=== PATIENT | female | born 1995 | race Caucasian/White ===

== ENCOUNTER 2024-02-12 10:50 | Outpatient (CLI) | payer BC, SELFPAY ==
[2024-02-12 11:23] LABS: Basophils # 0.1 K/mm3 (0-0.2); Basophils % 0.6 % (0.1-2.0); Eosinophils # 0.1 K/mm3 (0.0-0.4); Eosinophils % 1.5 % (0.1-12.0); Hematocrit 42.1 % (37.0-47.0); Hemoglobin 13.2 g/dL (12.2-16.2); Lymphocytes # 1.8 K/mm3 (0.7-4.5); Lymphocytes % 22.9 % (10-50); Mean Corpuscular HGB Conc 31.4 g/dL (31.8-35.4); Mean Corpuscular Hemoglobin 29.1 pg (27.0-31.2); Mean Corpuscular Volume 92.5 fl (81-99); Mean Platelet Volume 7.6 fl (7.4-10.4); Monocytes # 0.4 K/mm3 (0.1-1.0); Monocytes % 4.8 % (1.7-9.3); Neutrophils # 5.6 K/mm3 (1.8-7.8); Neutrophils % 70.2 % (37.0-80.0); Platelet Count 308 K/mm3 (142-424); Red Blood Count 4.55 M/mm3 (4.20-5.40); Red Cell Distribution Width 14.2 % (11.5-17.5); White Blood Count 7.9 K/mm3 (4.8-10.8)
[2024-02-13 10:11] LABS: HIV Screen 4th Generation wRfx Non Reactive (Non Reactive); Rubella Antibodies, IgG 5.37 index (Immune >0.99)
[2024-02-13 11:11] LABS: Rapid Plasma Reagin Ab Titer Non Reactive titer (NonRea<1:1)
[2024-02-15 10:19] LABS: Hepatitis B Surface Antigen Negative; Hepatitis C Antibody Non Reactive
== END 2024-02-12 23:59 ==
LOC: LAB 10:51
PROVIDERS: PCP Internal Medicine; Visit Provider Obstetrics & Gynecology
DX: Z32.01 Encounter for pregnancy test, result positive (principal); O26.891 Other specified pregnancy related conditions, first trimester; O21.9 Vomiting of pregnancy, unspecified; Z3A.08 8 weeks gestation of pregnancy
CPT/HCPCS: 36415; 85025; 86593; 86703; 86762; 86850; 87086; 87340; 87380; G0432

== ENCOUNTER 2024-05-04 09:12 | Outpatient (CLI) | payer BC, SELFPAY ==
--- NOTE | 2024-05-04 09:13 | US_ITS ---
PROCEDURE: US OB /MATERNAL DETAIL CLINICAL INDICATION: 20 wk+ Anatomy Scan-US OB Complete COMPARISON: No exams were available for comparison FINDINGS: Transabdominal sonographic images of the pelvis were obtained. From her established due date she is 20 weeks 0 days. Single viable intrauterine gestation. Cephalic position. Placenta: Posteriorplacenta grade 1. There is an average amount of fluid. The cervix appears satisfactory. Closed and measuring 3.65 cm in length. Complete survey performed and was unremarkable on the submitted images as in PACS. No discrete anomalies identified on survey imaging by technologist. Active fetus. Three-vessel cord with satisfactory umbilical cord insertion. 4- chamber heart noted. Situs, aortic arch, LVOT, RVOT, three-vessel view appear normal. Survey of brain & ventricles Unremarkable. Cerebellum, thalamus, choroid plexus, cisterna magna appear normal. Face and neck survey unremarkable. Profile, nasion, lips and nose appeared normal. Diaphragm and chest views unremarkable. Abdomen: Both kidneys noted and unremarkable. Stomach and bladder noted and satisfactory. Spine: Survey of the spine satisfactory with no anomalies identified nor imaged. Cervical, thoracic, lower spine appear normal. Both arms and legs noted. Amniotic Fluid: Adequate. Measurements: Average ultrasound age 20weeks 3days. Estimated due date by ultrasound age 1009/18/2024. Estimated weight 334g BPD = 20weeks 5days HC = 20weeks 5days AC = 20weeks 0 days FL = 20weeks 1day Growth Percentile= 53 Heart Rate = 152bpm Cerebellum = 19weeks 5days Humerus = 20weeks 2days HC/AC is 1.24 FL/BPD is 0.67 FL/AC is 0.22 IMPRESSION: 1. Viable fetus in the cephalic presentation with a posterior placenta grade 1. 2. The fluid is within normal limits. 3. Anatomical scan appears normal. 4. biometry is consistent with the dates. Dictated by: Satya Hyde MD 05/04/2024 15:48 Satya Hyde MD in [facility] 05/04/2024 15:48
== END 2024-05-04 23:59 | disposition home or self-care (01) ==
LOC: RAD 09:13
PROVIDERS: PCP Internal Medicine; Visit Provider Obstetrics & Gynecology
DX: Z3A.20 20 weeks gestation of pregnancy (principal); Z36.3 Encounter for antenatal screening for malformations; F32.A Depression, unspecified; F41.9 Anxiety disorder, unspecified; J45.909 Unspecified asthma, uncomplicated; O09.892 Supervision of other high risk pregnancies, second trimester; O99.342 Other mental disorders complicating pregnancy, second trimester; O99.512 Diseases of the respiratory system complicating pregnancy, second trimester
CPT/HCPCS: 76811

== ENCOUNTER 2024-05-25 08:09 | Outpatient (CLI) | payer BC, SELFPAY ==
[2024-05-25] MEDS: MVI, ADULT NO.1 WITH VIT K 10 ML, THIAMINE HCL 100 MG, MAGNESIUM SULFATE 2 GM in LACTAT... 250 ML IV (08:33)
[2024-05-25 08:35] VITALS: BP 106/68; PULSE 72; RESP 18; O2SAT 100
[2024-05-25 09:35] VITALS: BP 110/70; PULSE 75
[2024-05-25 10:35] VITALS: BP 109/67; PULSE 71
[2024-05-25 11:35] VITALS: BP 112/73; PULSE 74
[2024-05-25 12:40] VITALS: BP 122/66; PULSE 70
== END 2024-05-25 12:53 | disposition home or self-care (01) ==
LOC: INF 08:10
PROVIDERS: PCP Internal Medicine; Visit Provider Obstetrics & Gynecology
DX: O21.9 Vomiting of pregnancy, unspecified (principal); Z3A.23 23 weeks gestation of pregnancy
CPT/HCPCS: 96365; 96366; J3411; J7120

== ENCOUNTER 2024-05-31 11:56 | Outpatient (CLI) | payer BC, SELFPAY ==
[2024-05-31] MEDS: MVI, ADULT NO.1 WITH VIT K 10 ML, THIAMINE HCL 100 MG, MAGNESIUM SULFATE 2 GM in LACTAT... 250 ML IV (12:16)
[2024-05-31 12:20] VITALS: BP 111/63; PULSE 91; RESP 18; TEMP 37.1; O2SAT 100
[2024-05-31 13:20] VITALS: BP 108/72; PULSE 95
[2024-05-31 14:20] VITALS: BP 115/68; PULSE 93
[2024-05-31 15:20] VITALS: BP 110/67; PULSE 96
[2024-05-31 16:21] VITALS: BP 121/74; PULSE 76
== END 2024-05-31 16:24 | disposition home or self-care (01) ==
LOC: INF 11:58
PROVIDERS: PCP Internal Medicine; Visit Provider Obstetrics & Gynecology
DX: O21.9 Vomiting of pregnancy, unspecified (principal); Z3A.23 23 weeks gestation of pregnancy
CPT/HCPCS: 96365; 96366; J3411; J7120

== ENCOUNTER 2024-06-06 13:20 | Outpatient (CLI) | payer BC, SELFPAY ==
[2024-06-06] MEDS: MVI, ADULT NO.1 WITH VIT K 10 ML, THIAMINE HCL 100 MG, MAGNESIUM SULFATE 2 GM in LACTAT... 250 ML IV (13:30)
[2024-06-06 13:33] VITALS: BP 135/63; PULSE 90; RESP 18; O2SAT 99
[2024-06-06 14:30] VITALS: BP 131/76; PULSE 86
[2024-06-06 15:30] VITALS: BP 124/68; PULSE 81
[2024-06-06 16:30] VITALS: BP 126/72; PULSE 76
[2024-06-06 17:02] VITALS: BP 124/72; PULSE 72
== END 2024-06-06 17:03 | disposition home or self-care (01) ==
LOC: INF 13:21
PROVIDERS: PCP Internal Medicine; Visit Provider Obstetrics & Gynecology
DX: O21.9 Vomiting of pregnancy, unspecified (principal); Z3A.24 24 weeks gestation of pregnancy
CPT/HCPCS: 96365; 96366; J3411; J7120

== ENCOUNTER 2024-06-21 09:05 | Emergency (ER) | payer BC, SELFPAY ==
[2024-06-21] VITALS (11 sets, daily range): BP systolic 106–147; BP diastolic 61–91; PULSE 70–93; RESP 18–19; TEMP 36.6–36.8; O2SAT 98–100; BMI 33.6
[2024-06-21 09:30] LABS: Basophils % 0.2 % (0.1-2.0); Eosinophils # 0.2 K/mm3 (0.0-0.4); Eosinophils % 1.6 % (0.1-12.0); Hematocrit 35.7 % (37.0-47.0); Hemoglobin 11.6 g/dL (12.2-16.2); Lymphocytes # 1.4 K/mm3 (0.7-4.5); Lymphocytes % 13.7 % (10-50); Mean Corpuscular HGB Conc 32.6 g/dL (31.8-35.4); Mean Corpuscular Hemoglobin 29.6 pg (27.0-31.2); Mean Corpuscular Volume 90.8 fl (81-99); Mean Platelet Volume 7.5 fl (7.4-10.4); Monocytes # 0.4 K/mm3 (0.1-1.0); Monocytes % 4.4 % (1.7-9.3); Neutrophils % 80.1 % (37.0-80.0); Platelet Count 340 K/mm3 (142-424); Red Blood Count 3.93 M/mm3 (4.20-5.40); Red Cell Distribution Width 14.5 % (11.5-17.5); White Blood Count 9.9 K/mm3 (4.8-10.8)
[2024-06-21 09:39] LABS: Alanine Aminotransferase 17 U/L (12-78); Albumin Level 3.5 g/dl (3.5-5.0); Albumin/Globulin Ratio 1.2 (1.1-1.8); Alkaline Phosphatase 98 U/L (38-126); Anion Gap 8.5 mEq/L (5-15); Aspartate Amino Transferase 25 U/L (14-36); Bilirubin,Total 0.3 mg/dl (0.2-1.3); Blood Urea Nitrogen 4 mg/dl (7-17); Calcium 8.8 mg/dl (8.4-10.2); Carbon Dioxide 23 mmol/L (22.0-30.0); Chloride 108 mmol/L (98-107); Creatinine Clearance Estimated 239 mL/min (50-200); Estimated Glomerular Filt Rate 149 ml/min (>60); GFR (African American) 180 ML/MIN (>60); Glucose 92 mg/dl (74-100); Lipase 64 U/L (23-300); Potassium 3.5 mmoL/L (3.5-5.1); Sodium 136 mmol/L (136-145); Total Protein,Serum 6.5 g/dl (6.3-8.2)
[2024-06-21] MEDS: ACETAMINOPHEN 1,000MG/100ML VIAL 1000 MG IV (09:55)
[2024-06-21] MEDS: ONDANSETRON 4MG/2ML VIAL 4 MG IV (09:56)
[2024-06-21] MEDS: LACTATED RINGERS 1000ML 1,000 ML 999 ML IV ×2 (09:56→11:58)
[2024-06-21] MEDS: SODIUM CHLORIDE 0.9% 10ML VIAL 8 ML IV (09:56)
[2024-06-21] MEDS: FAMOTIDINE 20MG/2ML VIAL 20 MG IV (09:56)
--- NOTE | 2024-06-21 10:01 | ED_ITS ---
Discharge Plan Disposition Patient Disposition: Home, Self-Care Condition: Good Prescriptions Prescriptions: New famotidine [Pepcid] 20 mg tablet 20 mg PO DAILY PRN (Reason: acid reflux) Qty: 30 0RF ondansetron 4 mg tablet,disintegrating 4 mg PO Q8H PRN (Reason: nausea and vomiting) 4 Days Qty: 12 0RF No Action albuterol sulfate [Ventolin HFA] 90 mcg/actuation HFA aerosol inhaler inhalation Patient Comments: Inhale 2 puffs Every 4 (Four) Hours As Needed for Shortness of Air or Wheezing. Use with AeroChamber ondansetron 4 mg tablet,disintegrating 4 mg PO Q6H Qty: 30 1RF Classic 28 mg iron- 800 mcg tablet PO DAILY Referrals Follow up/Referrals: Raul Najera [Primary Care Provider] - See instructions Activity Restrictions/Add. Instructions Additional Instructions/Restrictions: You were evaluated in the emergency department today. 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 Follow-up closely with your psychologist private practice as well as your primary care provider. Make sure that you stay hydrated. Return to the emergency department for new or worsening symptoms. Clinical Impressions Clinical Impression: Nausea and vomiting during , Headache, Gastritis Stand Alone Forms Stand Alone Forms: Work/School Release Instructions Patient Instructions: DI for -- Discomforts and Remedies, DI for Vomiting -- Adult Discharge ED Provider: Anna Kirk General Adult HPI General Chief complaint: Abdominal Pain Stated complaint: vomiting abd and head pain 27 weeks Time Seen by Provider: 06/21/24 09:20 Mode of Arrival: Ambulatory Source of Information: Patient Limitations: No Limitations Description of Symptoms (Recalled from ER Triage Doc. by RN): c/o n/v and abdomen pain. pt reports that she started with nausea yesterday and upper abdomen pain, vomiting started this morning with around 4-5 episodes. History of Present Illness HPI narrative: This patient is a 28-year-old female at estimated 27 weeks gestation presenting to the emergency department for evaluation with concern for nausea, vomiting, and left upper quadrant abdominal discomfort. She states that she has had vomiting very frequently with , but she usually is able to vomit and go about her day. Today, she has had intractable vomiting that so severe that she is not able to move because she feels so miserable. She has vomited at least 6 times. Emesis is nonbloody nonbilious. She denies any significant changes in bowel movements, noting constipation with but she is still having good bowel movements. She does have a headache at this time, but no new visual disturbance, new numbness or tingling, weakness, or other concerns. No recent traumatic injuries. No vaginal bleeding, discharge, or leakage of fluid. No urinary symptoms. She reports has been uncomplicated thus far. She does note that her significant other at home has had diarrhea. She also notes that she has had some indigestion after drinking a soda yesterday. Related Data Home Medications Medication Instructions Recorded Confirmed vits no.126-ferrous fum tab PO DAILY 02/12/24 06/07/24 28 mg iron-folic acid 800 mcg tablet (Classic ) albuterol sulfate 90 mcg/actuation inhalation 03/11/24 06/07/24 aerosol inhaler (Ventolin HFA) Previous Rx's Medication Instructions Recorded ondansetron 4 mg disintegrating 4 mg PO Q6H #30 tabs 05/06/24 tablet famotidine 20 mg tablet (Pepcid) 20 mg PO DAILY PRN acid reflux #30 06/21/24 tabs ondansetron 4 mg disintegrating 4 mg PO Q8H PRN nausea and 06/21/24 tablet vomiting 4 days #12 tabs Allergies Allergy/AdvReac Type Severity Reaction Status Date / Time No Known Allergies Allergy Verified 06/07/24 09:01 [facility] Disclaimer: The information contained in this section may have been updated after the patient was seen, as this information can be updated by other users. Medical History GBS bacteriuria History of migraine headaches Depression affecting Anxiety in , antepartum Maternal asthma Nausea/vomiting in History of maternal chlamydia infection, currently Surgical History [place] teeth extracted Family History Other Anemia Asthma Cancer Coronary artery disease Diabetes Heart attack Hyperlipidemia Hypertension Kidney disease Thyroid disorder Social History Smoking Status: Never smoker alcohol intake: never substance use type: former substance user and marijuana current occupational status: employed Travel in the last 8 weeks: None ROS Obtained: Yes All systems reviewed & no additional complaints except as documented Physical Exam General General appearance: alert and in no apparent distress Head Head exam: atraumatic and normocephalic Eye Eye exam: Present normal appearance, PERRL and EOMI ENT ENT exam: Present normal exam, normal oropharynx, mucous membranes moist and normal external ear exam Neck Neck exam: Present normal inspection, full ROM and trachea midline; Absent tenderness Chest Chest inspection: Present normal inspection and symmetric chest wall rise; Absent tenderness Respiratory Respiratory exam: Present normal lung sounds bilaterally; Absent respiratory distress, wheezes, stridor or accessory muscle use Cardiovascular Cardiovascular exam: Present regular rate and normal rhythm Abdominal Exam Abdominal exam: Present soft; Absent distention, tenderness or guarding Extremities Exam Extremities exam: Present normal inspection, full ROM and normal capillary refill; Absent tenderness or edema Back Exam Back exam: Present normal inspection and full ROM; Absent tenderness Neurological Exam Neurological exam: Present alert, oriented X3, CN II-XII intact and normal gait; Absent motor sensory deficit Psychiatric Psychiatric exam: Present normal affect and normal mood Skin Skin exam: Present warm and dry Medical Decision Making Medical Records Medical records reviewed: Yes I reviewed the patient's medical records. [place] Inquiry Pt receiving controlled substance: No Vital Signs: 06/21/24 09:08 06/21/24 09:14 06/21/24 09:30 Temperature 98.3 F Temperature Source Oral Pulse Rate 93 H Pulse Rate [Left Radial] 91 H Respiratory Rate 18 Blood Pressure 130/83 147/91 H Blood Pressure [Right Arm] 130/83 Blood Pressure Mean 91 105 Blood Pressure Mean [Right Arm] 98 Blood Pressure Source [Right Arm] Automatic Cuff Blood Pressure Position [Right Arm] Sitting 02 Sat by Pulse Oximetry 100 100 Oxygen Delivery Method Room Air 06/21/24 10:00 06/21/24 10:30 06/21/24 11:00 Temperature Temperature Source Pulse Rate 87 81 80 Pulse Rate [Left Radial] Respiratory Rate Blood Pressure 139/85 122/71 118/65 Blood Pressure [Right Arm] Blood Pressure Mean 100 82 Blood Pressure Mean [Right Arm] Blood Pressure Source [Right Arm] Blood Pressure Position [Right Arm] 02 Sat by Pulse Oximetry 99 99 98 Oxygen Delivery Method Room Air 06/21/24 11:30 06/21/24 12:00 06/21/24 12:30 Temperature Temperature Source Pulse Rate 75 80 72 Pulse Rate [Left Radial] Respiratory Rate Blood Pressure 120/68 123/69 114/63 Blood Pressure [Right Arm] Blood Pressure Mean Blood Pressure Mean [Right Arm] Blood Pressure Source [Right Arm] Blood Pressure Position [Right Arm] 02 Sat by Pulse Oximetry 99 100 100 Oxygen Delivery Method 06/21/24 13:00 06/21/24 13:25 Temperature 97.9 F Temperature Source Pulse Rate 70 89 Pulse Rate [Left Radial] Respiratory Rate 19 Blood Pressure 106/61 L 106/61 L Blood Pressure [Right Arm] Blood Pressure Mean Blood Pressure Mean [Right Arm] Blood Pressure Source [Right Arm] Blood Pressure Position [Right Arm] 02 Sat by Pulse Oximetry 99 Oxygen Delivery Method Lab Data Lab results reviewed: Yes I reviewed the patient's lab results. Lab Results 06/21/24 09:15: WBC 9.9, RBC 3.93 L, Hgb 11.6 L, Hct 35.7 L, MCV 90.8, MCH 29.6, MCHC 32.6, RDW 14.5, Plt Count 340, MPV 7.5, Neut % (Auto) 80.1 H, Lymph % (Auto) 13.7, Steele % (Auto) 4.4, Eos % (Auto) 1.6, Baso % (Auto) 0.2, Neut # (Auto) 8.0 H, Lymph # (Auto) 1.4, Steele # (Auto) 0.4, Eos # (Auto) 0.2, Baso # (Auto) 0.0, Sodium 136, Potassium 3.5, Chloride 108 H, Carbon Dioxide 23, Anion Gap 8.5, BUN 4 L, Creatinine 0.50 L, Estimated Creat Clear 239, Estimated GFR 149, Est GFR ( Amer) 180, Glucose 92, Calcium 8.8, Total Bilirubin 0.3, AST 25, ALT 17, Alkaline Phosphatase 98, Total Protein 6.5, Albumin 3.5, Globulin 3.0, Albumin/Globulin Ratio 1.2, Lipase 64 06/21/24 10:32: Urine Color Yellow, Urine Appearance Clear, Urine pH 7.5, Ur Specific [place] 1.015, Urine Protein Negative, Urine Glucose (UA) Negative, Urine Ketones 1+, Urine Blood Negative, Urine Nitrate Negative, Urine Bilirubin Negative, Urine Urobilinogen 0.2, Ur Leukocyte Esterase Negative, Urine RBC None, Urine WBC None, Ur Squamous Epith Cells Occasional, Urine Bacteria None 06/21/24 09:15 06/21/24 09:15 Orders (Tests/Meds): ED MEDICATIONS Discontinued Medications Generic Name Dose Route Start Last Admin Trade Name Bradly PRN Reason Stop Dose Admin Acetaminophen 1,000 mg 06/21/24 09:40 06/21/24 09:55 Acetaminophen 1,000mg/100ml Vial IV 06/21/24 09:41 1,000 mg ONCE ONE Administration Calcium Carbonate 500 mg 06/21/24 11:39 06/21/24 11:56 Calcium Carbonate 500mg Chewtab PO 06/21/24 11:40 500 mg ONCE ONE Administration Diphenhydramine HCl 12.5 mg 06/21/24 11:38 06/21/24 11:56 Diphenhydramine 50mg/Ml Vial IV 06/21/24 11:39 12.5 mg ONCE ONE Administration Famotidine 20 mg 06/21/24 09:41 06/21/24 09:56 Famotidine 20mg/2ml Vial IV 06/21/24 09:42 20 mg ONCE ONE Administration Lactated Ringer's 1,000 mls @ 999 mls/hr 06/21/24 09:40 06/21/24 09:56 Lactated Ringer's 1000 Ml Bag IV 06/21/24 10:40 999 mls/hr .Q1H1M ONE Administration Lactated Ringer's 1,000 mls @ 999 mls/hr 06/21/24 11:38 06/21/24 11:58 Lactated Ringer's 1000 Ml Bag IV 06/21/24 12:38 999 mls/hr .Q1H1M ONE Administration Metoclopramide HCl 5 mg 06/21/24 11:38 06/21/24 11:58 Metoclopramide Hcl 10mg/2ml Vial IVP 06/21/24 11:39 5 mg ONCE ONE Administration Ondansetron HCl 4 mg 06/21/24 09:40 06/21/24 09:56 Ondansetron 4mg/2ml Vial IV 06/21/24 09:41 4 mg ONCE ONE Administration Sodium Chloride 8 ml 06/21/24 09:41 06/21/24 09:56 Sodium Chloride 0.9% 10ml Vial IV 07/21/24 09:40 8 ml NEEDED PRN Administration dilute pepcid ORDERS Category Date Time Status POCUS Point of Care (ER Only) Stat Exams 06/21/24 09:20 Completed Complete Blood Count Auto Diff Stat Lab 06/21/24 09:15 Completed Comprehensive Metabolic Panel Stat Lab 06/21/24 09:15 Completed Lipase Stat Lab 06/21/24 09:15 Completed UA [Urinalysis and Microscopic] Stat Lab 06/21/24 10:32 Completed Medical Decision Narrative: In summary, this patient is a 28-year-old female presenting to the Emergency Department for evaluation of left upper quadrant abdominal pain, nausea, vomiting, and headache in . Differential diagnoses considered include but are not limited to hyperemesis gravidarum, gastroenteritis, pancreatitis, cholecystitis, dehydration, cystitis, pyelonephritis, gastritis. Ruling out the most morbid conditions drove assessment. I reviewed patient's past medical records and noted previous OB notes. On exam, the patient is lying in bed in no acute distress with reassuring vital signs on cardiac telemetry. Abdominal exam is benign with no focal abdominal tenderness. workup included CBC, CMP, lipase, urinalysis, bedside right upper quadrant ultrasound, and bedside OB ultrasound. She was given a bolus of IV fluids as well as IV Zofran, Tylenol, and Pepcid for symptomatic improvement. Labs obtained are reassuring with normal blood counts and normal CMP. Blood pressure reassuring on clinical exam. Ultrasounds are reassuring with no evidence of cholecystitis and baby looks good with normal movement, fluid, and heartbeat. On reassessment, the patient is resting calmly with normal vital signs on cardiac telemetry, but she states that she still feeling very bad and is not able to tolerate much oral intake. Given this, she was given IV Reglan, Benadryl, and oral Tums. At 1130, patient was placed in ED observation status pending reassessment, improved symptoms, and ability to tolerate p.o. intake to determine whether or not the patient would be appropriate for discharge versus admission. The patient was provided serial reevaluations and cardiac monitoring while awaiting ultimate disposition. Ultimately patient had significant improvement in her symptoms and was able to tolerate oral intake. Given this, she was deemed to be appropriate for discharge. I feel we have excluded acute life-threatening pathology. She was given prescriptions for Zofran and Pepcid as well as instructions for close follow-up with her primary care provider and [facility]. Strict return precautions were given. She was discharged in stable condition after all questions were answered. Discharge was done at 1325 after 1 hour and 55 minutes in ED observation. Procedures Limited Ultrasound Views:: Limited OB ultrasound Indication: Abdominal pain in Identified structures: Uterus Findings: Uterus: Viable IUP with good movement, good amount of fluid FHR: 136 Impression: -Viable IUP - heart rate: 136 -Free fluid: Absent Images were saved to permanent archive The study was technically adequate CPT Transabdominal: 61164-51 This study was performed by me, and I personally interpreted all images/videos. Based on my clinical judgement, these images were adequate and did not necessitate further imaging. Findings:: Limited RUQ ultrasound Indication: Abdominal pain, nausea, and vomiting Identified structures: -Gallbladder -Gallbladder wall -Liver Findings: Sonographic Layne sign: Absent Gallstones: Absent Sludge: Absent Pericholecystic fluid: Absent Maximal GB wall thickness (mm): Normal Gallbladder width (cm): Normal Gallbladder length (cm): Normal Impression: Normal gallbladder Images were saved to permanent archive The study was technically adequate CPT 90653-00 This study was performed by me, and I personally interpreted all images/videos. Based on my clinical judgement, these images were adequate and did not necessitate further imaging. Critical Care Critical Care Time Critical Care Time: No
[2024-06-21 10:38] LABS: Microscopic, Urine URINE MICROSCOPIC (MICROSCOPIC)
[2024-06-21 11:02] LABS: Appearance,Urine CLEAR (Clear); Bilirubin,Urine Negative (Negative); Blood, Urine Negative (Negative); Color,Urine YELLOW (Yellow); Glucose,Urine (UA) Negative (Negative); Ketones,Urine 1+ (Negative); Leukocyte Esterase,Urine Negative (Negative); Nitrate,Urine Negative (Negative); PH,Urine 7.5 (5.0-8.5); Protein,Urine Negative (Negative); Specific Gravity, Urine 1.015 (1.005-1.030); Urobilinogen,Urine 0.2 EU/dl (0.2)
[2024-06-21] MEDS: diphenhydrAMINE 50MG/ML VIAL 12.5 MG IV (11:56)
[2024-06-21] MEDS: CALCIUM CARBONATE 500MG CHEWTAB 500 MG PO (11:56)
[2024-06-21] MEDS: METOCLOPRAMIDE HCL 10MG/2ML VIAL 5 MG IVP (11:58)
[2024-06-21 13:21] LABS: Squamous Epithelial Cell,Urine Occasional #/hpf (0-5)
== END 2024-06-21 13:27 | disposition home or self-care (01) ==
PROVIDERS: Emergency Provider Emergency Medicine; PCP Internal Medicine
DX: O26.892 Other specified pregnancy related conditions, second trimester (principal); R10.12 Left upper quadrant pain; K29.70 Gastritis, unspecified, without bleeding; R51.9 Headache, unspecified; R11.2 Nausea with vomiting, unspecified; Z3A.27 27 weeks gestation of pregnancy
CPT/HCPCS: 80053; 81001; 83690; 85025; 96361; 96374; 96375; 99285; J0131; J1200; J2405; J2765; J7120; S0028

== ENCOUNTER 2024-06-28 08:29 | Outpatient (CLI) | payer BC, SELFPAY ==
[2024-06-28 09:00] LABS: Basophils % 0.3 % (0.1-2.0); Eosinophils # 0.2 K/mm3 (0.0-0.4); Eosinophils % 1.8 % (0.1-12.0); Hematocrit 28.1 % (37.0-47.0); Hemoglobin 10.4 g/dL (12.2-16.2); Lymphocytes # 1.6 K/mm3 (0.7-4.5); Lymphocytes % 16.8 % (10-50); Mean Corpuscular HGB Conc 36.9 g/dL (31.8-35.4); Mean Corpuscular Hemoglobin 33.8 pg (27.0-31.2); Mean Corpuscular Volume 91.7 fl (81-99); Mean Platelet Volume 7.6 fl (7.4-10.4); Monocytes # 0.6 K/mm3 (0.1-1.0); Monocytes % 5.9 % (1.7-9.3); Neutrophils % 75.3 % (37.0-80.0); Platelet Count 317 K/mm3 (142-424); Red Blood Count 3.06 M/mm3 (4.20-5.40); Red Cell Distribution Width 14.5 % (11.5-17.5); White Blood Count 9.3 K/mm3 (4.8-10.8)
[2024-06-28 09:11] LABS: Glucose,Fasting 85 mg/dl (74-100)
[2024-06-28 10:20] LABS: Glucose 1 Hour 87 mg/dL (74-100)
== END 2024-06-28 23:59 | disposition home or self-care (01) ==
LOC: LAB 08:30
PROVIDERS: PCP Internal Medicine; Visit Provider Obstetrics & Gynecology
DX: Z34.90 Encounter for supervision of normal pregnancy, unspecified, unspecified trimester (principal); Z3A.28 28 weeks gestation of pregnancy
CPT/HCPCS: 36415; 82951; 85025

== ENCOUNTER 2024-07-13 18:09 | Outpatient (CLI) | payer BC, SELFPAY ==
[2024-07-13 18:13] VITALS: BMI 33.7
[2024-07-13 18:35] VITALS: BP 118/71; PULSE 100; RESP 19; TEMP 36.9; O2SAT 97; BMI 33.7
[2024-07-13] MEDS: LACTATED RINGERS 1000ML 1,000 ML 999 ML IV (18:54)
[2024-07-13 18:55] LABS: Microscopic, Urine URINE MICROSCOPIC (MICROSCOPIC)
[2024-07-13 18:57] LABS: Appearance,Urine CLEAR (Clear); Blood, Urine 2+ (Negative); Color,Urine YELLOW (Yellow); Glucose,Urine (UA) Negative (Negative); Ketones,Urine 2+ (Negative); Leukocyte Esterase,Urine 1+ (Negative); Nitrate,Urine Negative (Negative); Protein,Urine 2+ (Negative); Specific Gravity, Urine >= 1.030 (1.005-1.030); Urobilinogen,Urine 0.2 EU/dl (0.2)
[2024-07-13 19:08] LABS: Fetal Membrane Rupture (Rapid) Negative (Negative)
[2024-07-13 19:10] LABS: Benzodiazepines Screen,Urine Negative ng/ml (<200)
[2024-07-13 19:11] LABS: Amphetamine/Metha Screen,Urine Negative ng/ml (<1000); Barbiturates Screen,Urine Negative ng/ml (<200)
[2024-07-13 19:12] LABS: Bilirubin,Urine Negative (Negative); Cocaine Screen,Urine Negative ng/ml (<300); Methadone Screen,Urine Negative ng/ml (<300)
[2024-07-13 19:13] LABS: Bacteria,Urine 4+ /lpf; Cannabinoid Screen,Urine Positive ng/ml (<50); RBC,Urine 50-100 #/hpf (0-3); Squamous Epithelial Cell,Urine 50-100 #/hpf (0-5); WBC,Urine TNTC #/hpf (0-3)
[2024-07-13 19:14] LABS: Opiate Screen,Urine Negative ng/ml (<300); Phencyclidine Screen,Urine Negative ng/ml (<25)
== END 2024-07-13 20:12 | disposition home or self-care (01) ==
LOC: OBOUT 18:10 → OB 18:10
PROVIDERS: PCP Internal Medicine; Visit Provider Obstetrics & Gynecology
DX: O42.913 Preterm premature rupture of membranes, unspecified as to length of time between rupture and onset of labor, third trimester (principal); Z3A.30 30 weeks gestation of pregnancy
CPT/HCPCS: 80307; 81001; 84112; 87086; 87088; 87186; G0463; J7120

== ENCOUNTER 2024-08-14 19:25 | Outpatient (CLI) | payer BC, SELFPAY ==
[2024-08-14 19:42] VITALS: BMI 74.9
[2024-08-14 19:56] VITALS: BP 129/73; PULSE 101; RESP 18; TEMP 37; O2SAT 98; BMI 74.9
[2024-08-14 20:08] LABS: Microscopic, Urine URINE MICROSCOPIC (MICROSCOPIC)
[2024-08-14 20:16] LABS: Appearance,Urine CLEAR (Clear); Bilirubin,Urine Negative (Negative); Blood, Urine Negative (Negative); Color,Urine YELLOW (Yellow); Glucose,Urine (UA) TRACE (Negative); Ketones,Urine Negative (Negative); Leukocyte Esterase,Urine 1+ (Negative); Nitrate,Urine Negative (Negative); Protein,Urine TRACE (Negative); Specific Gravity, Urine 1.025 (1.005-1.030); Urobilinogen,Urine 0.2 EU/dl (0.2)
[2024-08-14 20:26] LABS: Barbiturates Screen,Urine Negative ng/ml (<200)
[2024-08-14 20:27] LABS: Amphetamine/Metha Screen,Urine Negative ng/ml (<1000); Benzodiazepines Screen,Urine Negative ng/ml (<200)
[2024-08-14 20:28] LABS: Methadone Screen,Urine Negative ng/ml (<300)
[2024-08-14 20:29] LABS: Cannabinoid Screen,Urine Negative ng/ml (<50); Cocaine Screen,Urine Negative ng/ml (<300)
[2024-08-14 20:30] LABS: Opiate Screen,Urine Negative ng/ml (<300); Phencyclidine Screen,Urine Negative ng/ml (<25)
[2024-08-14 20:31] LABS: Bacteria,Urine 1+ /lpf
[2024-08-14] MEDS: ACETAMINOPHEN 500MG TAB 1000 MG PO (21:05)
[2024-08-14] MEDS: LACTATED RINGERS 1000ML 1,000 ML 999 ML IV (22:23)
== END 2024-08-14 22:32 | disposition home or self-care (01) ==
LOC: OBOUT 19:27 → OB 19:28
PROVIDERS: PCP Internal Medicine; Visit Provider Obstetrics & Gynecology
DX: O47.03 False labor before 37 completed weeks of gestation, third trimester (principal); Z3A.34 34 weeks gestation of pregnancy; O23.43 Unspecified infection of urinary tract in pregnancy, third trimester; N39.0 Urinary tract infection, site not specified
CPT/HCPCS: 80307; 81001; 87086; G0463; J7120

== ENCOUNTER 2024-08-18 23:17 | Outpatient (CLI) | payer BC, SELFPAY ==
[2024-08-18 23:30] VITALS: BP 112/72; PULSE 90; RESP 18; TEMP 36.7; O2SAT 97; BMI 33.7
[2024-08-18 23:39] VITALS: BMI 33.7
[2024-08-18 23:48] LABS: Microscopic, Urine URINE MICROSCOPIC (MICROSCOPIC)
[2024-08-18 23:49] LABS: Appearance,Urine CLEAR (Clear); Bilirubin,Urine Negative (Negative); Blood, Urine TRACE-I (Negative); Color,Urine YELLOW (Yellow); Glucose,Urine (UA) Negative (Negative); Ketones,Urine Negative (Negative); Leukocyte Esterase,Urine TRACE (Negative); Nitrate,Urine Negative (Negative); Protein,Urine Negative (Negative); Specific Gravity, Urine >= 1.030 (1.005-1.030); Urobilinogen,Urine 0.2 EU/dl (0.2)
[2024-08-19 00:01] LABS: Benzodiazepines Screen,Urine Negative ng/ml (<200)
[2024-08-19 00:02] LABS: Amphetamine/Metha Screen,Urine Negative ng/ml (<1000)
[2024-08-19 00:03] LABS: Barbiturates Screen,Urine Negative ng/ml (<200); Cannabinoid Screen,Urine Negative ng/ml (<50)
[2024-08-19 00:04] LABS: Cocaine Screen,Urine Negative ng/ml (<300); Methadone Screen,Urine Negative ng/ml (<300)
[2024-08-19 00:05] LABS: Fetal Membrane Rupture (Rapid) Negative (Negative); Opiate Screen,Urine Negative ng/ml (<300)
[2024-08-19 00:06] LABS: Phencyclidine Screen,Urine Negative ng/ml (<25)
[2024-08-19 00:12] LABS: Bacteria,Urine 4+ /lpf; Squamous Epithelial Cell,Urine 20-50 #/hpf (0-5)
[2024-08-19] MEDS: LACTATED RINGERS 1000ML 1,000 ML 999 ML IV ×2 (01:03→02:54)
[2024-08-19] MEDS: CEFTRIAXONE SODIUM 1 GM in 0.9 % SODIUM CHLORIDE 50 ML IV (01:03)
== END 2024-08-19 03:30 | disposition home or self-care (01) ==
LOC: OBOUT 23:18 → OB 23:19
PROVIDERS: PCP Internal Medicine; Visit Provider Obstetrics & Gynecology
DX: O42.913 Preterm premature rupture of membranes, unspecified as to length of time between rupture and onset of labor, third trimester (principal); Z3A.35 35 weeks gestation of pregnancy; O23.43 Unspecified infection of urinary tract in pregnancy, third trimester; N39.0 Urinary tract infection, site not specified
CPT/HCPCS: 80307; 81001; 84112; 87086; G0463; J0696; J7120

== ENCOUNTER 2024-08-24 17:38 | Outpatient (CLI) | payer BC, SELFPAY ==
[2024-08-27 07:12] LABS: Neisseria gonorrhoeae, NAA Negative (Negative)
== END 2024-08-24 23:59 | disposition home or self-care (01) ==
LOC: LAB.DROPOF 17:39
PROVIDERS: PCP Obstetrics & Gynecology; Visit Provider Obstetrics & Gynecology
DX: Z34.90 Encounter for supervision of normal pregnancy, unspecified, unspecified trimester (principal)
CPT/HCPCS: 87491; 87591

== ENCOUNTER 2024-08-27 17:37 | Outpatient (CLI) | payer BC, SELFPAY ==
[2024-08-27 17:46] VITALS: BMI 33.6
[2024-08-27 18:01] VITALS: BP 114/69; PULSE 83; RESP 17; TEMP 36.6; O2SAT 99; BMI 33.4
[2024-08-27 18:14] LABS: Benzodiazepines Screen,Urine Negative ng/ml (<200)
[2024-08-27 18:15] LABS: Amphetamine/Metha Screen,Urine Negative ng/ml (<1000)
[2024-08-27 18:16] LABS: Barbiturates Screen,Urine Negative ng/ml (<200); Methadone Screen,Urine Negative ng/ml (<300)
[2024-08-27 18:17] LABS: Cannabinoid Screen,Urine Negative ng/ml (<50)
[2024-08-27 18:18] LABS: Cocaine Screen,Urine Negative ng/ml (<300); Opiate Screen,Urine Negative ng/ml (<300)
[2024-08-27 18:19] LABS: Phencyclidine Screen,Urine Negative ng/ml (<25)
[2024-08-27 18:23] LABS: Microscopic, Urine URINE MICROSCOPIC (MICROSCOPIC)
[2024-08-27 18:25] LABS: Blood, Urine Negative (Negative); Glucose,Urine (UA) Negative (Negative); Ketones,Urine TRACE (Negative); Leukocyte Esterase,Urine TRACE (Negative); Nitrate,Urine Negative (Negative); PH,Urine 6.5 (5.0-8.5); Protein,Urine TRACE (Negative); Specific Gravity, Urine 1.025 (1.005-1.030)
[2024-08-27 18:29] LABS: Appearance,Urine Cloudy (Clear); Bilirubin,Urine 1+ (Negative); Color,Urine Dark Yellow (Yellow)
[2024-08-27 18:40] LABS: Bacteria,Urine 2+ /lpf
[2024-08-27] MEDS: DEXTROSE 5%-LACTATED RINGERS 1,000 ML 999 ML IV ×2 (19:00→20:14)
[2024-08-27 19:09] LABS: Basophils % 0.3 % (0.1-2.0); Eosinophils # 0.1 K/mm3 (0.0-0.4); Eosinophils % 0.7 % (0.1-12.0); Hemoglobin 9.9 g/dL (12.2-16.2); Lymphocytes # 1.6 K/mm3 (0.7-4.5); Lymphocytes % 14.3 % (10-50); Mean Corpuscular Hemoglobin 26.5 pg (27.0-31.2); Mean Corpuscular Volume 88.4 fl (81-99); Mean Platelet Volume 6.9 fl (7.4-10.4); Monocytes # 0.7 K/mm3 (0.1-1.0); Monocytes % 6.1 % (1.7-9.3); Neutrophils # 8.9 K/mm3 (1.8-7.8); Neutrophils % 78.6 % (37.0-80.0); Platelet Count 442 K/mm3 (142-424); Red Blood Count 3.74 M/mm3 (4.20-5.40); Red Cell Distribution Width 14.2 % (11.5-17.5); White Blood Count 11.3 K/mm3 (4.8-10.8)
[2024-08-27 19:14] LABS: Chloride 109 mmol/L (98-107)
[2024-08-27 19:15] LABS: Albumin Level 3.7 g/dl (3.5-5.0); Potassium 3.5 mmoL/L (3.5-5.1); Sodium 134 mmol/L (136-145)
[2024-08-27 19:17] LABS: Blood Urea Nitrogen 3 mg/dl (7-17); Creatinine Clearance Estimated 239 mL/min (50-200); Estimated Glomerular Filt Rate 149 ml/min (>60); GFR (African American) 180 ML/MIN (>60)
[2024-08-27 19:18] LABS: Alanine Aminotransferase 19 U/L (12-78); Albumin/Globulin Ratio 1.1 (1.1-1.8); Alkaline Phosphatase 210 U/L (38-126); Anion Gap 7.5 mEq/L (5-15); Aspartate Amino Transferase 26 U/L (14-36); Bilirubin,Total 0.5 mg/dl (0.2-1.3); Calcium 8.8 mg/dl (8.4-10.2); Carbon Dioxide 21 mmol/L (22.0-30.0); Globulin 3.4 g/dL (1.3-3.2); Glucose 86 mg/dl (74-100); Total Protein,Serum 7.1 g/dl (6.3-8.2)
== END 2024-08-27 21:25 | disposition home or self-care (01) ==
LOC: OBOUT 17:39 → OB 17:41
PROVIDERS: PCP Internal Medicine; Visit Provider Nurse Practitioner Obstetrics & Gynecology
DX: O47.03 False labor before 37 completed weeks of gestation, third trimester (principal); Z3A.36 36 weeks gestation of pregnancy; R50.9 Fever, unspecified; R42 Dizziness and giddiness
CPT/HCPCS: 80053; 80307; 81001; 85025; 87086; G0463; J0696

== ENCOUNTER 2024-08-29 23:33 | Outpatient (CLI) | payer BC, SELFPAY ==
[2024-08-29 23:41] VITALS: BP 119/91; PULSE 109; RESP 17; TEMP 36.5; BMI 33.6; BMI 33.8
[2024-08-30] MEDS: LACTATED RINGERS 1000ML 1,000 ML 999 ML IV ×2 (00:10→00:44)
[2024-08-30 00:23] LABS: Basophils # 0.1 K/mm3 (0-0.2); Basophils % 0.4 % (0.1-2.0); Eosinophils # 0.1 K/mm3 (0.0-0.4); Eosinophils % 0.8 % (0.1-12.0); Hematocrit 30.2 % (37.0-47.0); Hemoglobin 9.8 g/dL (12.2-16.2); Lymphocytes # 2.4 K/mm3 (0.7-4.5); Lymphocytes % 18.4 % (10-50); Mean Corpuscular HGB Conc 32.4 g/dL (31.8-35.4); Mean Corpuscular Hemoglobin 28.4 pg (27.0-31.2); Mean Corpuscular Volume 87.7 fl (81-99); Mean Platelet Volume 8.3 fl (7.4-10.4); Monocytes # 0.8 K/mm3 (0.1-1.0); Monocytes % 6.2 % (1.7-9.3); Neutrophils # 9.8 K/mm3 (1.8-7.8); Neutrophils % 74.2 % (37.0-80.0); Platelet Count 440 K/mm3 (142-424); Red Blood Count 3.45 M/mm3 (4.20-5.40); Red Cell Distribution Width 15.1 % (11.5-17.5); White Blood Count 13.2 K/mm3 (4.8-10.8)
[2024-08-30 00:47] LABS: Anion Gap 7.8 mEq/L (5-15); Blood Urea Nitrogen 8 mg/dl (7-17); Calcium 8.5 mg/dl (8.4-10.2); Carbon Dioxide 21 mmol/L (22.0-30.0); Chloride 107 mmol/L (98-107); Creatinine Clearance Estimated 242 mL/min (50-200); Estimated Glomerular Filt Rate 149 ml/min (>60); GFR (African American) 180 ML/MIN (>60); Glucose 106 mg/dl (74-100); Potassium 3.8 mmoL/L (3.5-5.1); Sodium 132 mmol/L (136-145)
[2024-08-30 00:54] LABS: Microscopic, Urine URINE MICROSCOPIC (MICROSCOPIC)
[2024-08-30 00:56] LABS: Appearance,Urine CLEAR (Clear); Bilirubin,Urine Negative (Negative); Blood, Urine Negative (Negative); Color,Urine YELLOW (Yellow); Glucose,Urine (UA) Negative (Negative); Ketones,Urine Negative (Negative); Leukocyte Esterase,Urine Negative (Negative); Nitrate,Urine Negative (Negative); Protein,Urine Negative (Negative); Specific Gravity, Urine >= 1.030 (1.005-1.030); Urobilinogen,Urine 0.2 EU/dl (0.2)
[2024-08-30 01:02] LABS: RBC,Urine Occasional #/hpf (0-3)
[2024-08-30 01:03] LABS: Bacteria,Urine Trace /lpf; Calcium Oxalate Crystals,Urine 1+ /lpf
[2024-08-30] MEDS: BUTORPHANOL TARTRATE 1 MG/ML VIAL IV (01:31)
[2024-08-30 04:07] LABS: Barbiturates Screen,Urine Negative ng/ml (<200); Benzodiazepines Screen,Urine Negative ng/ml (<200)
[2024-08-30 04:08] LABS: Amphetamine/Metha Screen,Urine Negative ng/ml (<1000); Methadone Screen,Urine Negative ng/ml (<300)
[2024-08-30 04:09] LABS: Cannabinoid Screen,Urine Negative ng/ml (<50)
[2024-08-30 04:10] LABS: Cocaine Screen,Urine Negative ng/ml (<300); Opiate Screen,Urine Negative ng/ml (<300)
[2024-08-30 04:11] LABS: Phencyclidine Screen,Urine Negative ng/ml (<25)
== END 2024-08-30 01:42 | disposition home or self-care (01) ==
LOC: OBOUT 23:34 → OB 23:35
PROVIDERS: PCP Internal Medicine; Visit Provider Nurse Practitioner Obstetrics & Gynecology
DX: Z34.83 Encounter for supervision of other normal pregnancy, third trimester (principal); Z3A.36 36 weeks gestation of pregnancy
CPT/HCPCS: 80048; 80307; 81001; 85025; G0463; J0595; J7120

== ENCOUNTER 2024-08-31 14:24 | Outpatient (CLI) | payer BC, SELFPAY ==
--- NOTE | 2024-08-31 14:28 | US_ITS ---
PROCEDURE: US OB BIOPHYSICAL PROFILE CLINICAL INDICATION: LGA COMPARISON: US US OB /MATERNAL DETAIL from 05/04/2024 FINDINGS: Transabdominal sonographic images of the uterus were obtained. From her established due date she is 37weeks 0 days. The following parameters are obtained: Viable Fetus in the cephalic presentation with a posterior placenta grade 2. Average ultrasound age is 37weeks 5days Estimated weight 3,220g, 7 lb 2 oz The cervix measures 3.43 cm. Measurements: heart Rate = 140bpm BPD = 37weeks 3days, 74 percentile HC = 39weeks 0 days, 69 percentile AC = 37weeks 6days, 82 percentile FL = 36weeks 3days, 32 percentile HC/AC is 1 FL/BPD is 0.77 FL/AC is 0.21 69 percentile Amniotic fluid index: 15.74cm, MVP 5.32 cm. Qualitative AFV:2 Breathing movements: 2 Gross Body Movements: 2 Tone: 2 Biophysical profile score: 8 No obvious anomalies evident.Kidneys, profile, nasion, stomach, bladder, four-chamber heart, three-vessel cord appear normal. There is minimal unilateral renal pelvis dilation measuring 3.9 mm. IMPRESSION: 1. Viable fetus in the cephalic presentation with a posterior placenta grade 2. 2. The fluid is within normal limits with an amniotic fluid index of 15.74 cm, MVP 5.32 cm. 3. Biophysical profile is 8/8 with good breathing movement and movement seen. 4. Limited anatomical scan appears normal. There is minimal unilateral renal pelvis dilation measuring 3.9 mm. 5. There has been good interval growth with the fetus currently 69th percentile. Dictated by: Satya Hyde MD 08/31/2024 16:32 Satya Hyde MD in [place] 08/31/2024 16:32
== END 2024-08-31 23:59 | disposition home or self-care (01) ==
LOC: RAD 14:25
PROVIDERS: PCP Internal Medicine; Visit Provider Nurse Practitioner Obstetrics & Gynecology
DX: O36.63X0 Maternal care for excessive fetal growth, third trimester, not applicable or unspecified (principal); Z3A.37 37 weeks gestation of pregnancy
CPT/HCPCS: 76816; 76819

== ENCOUNTER 2024-09-03 17:40 | Outpatient (CLI) | payer BC, SELFPAY ==
[2024-09-03 17:53] VITALS: BMI 34.8
[2024-09-03 17:58] LABS: Microscopic, Urine URINE MICROSCOPIC (MICROSCOPIC)
[2024-09-03 18:07] VITALS: BP 120/71; PULSE 98; RESP 18; TEMP 36.8; O2SAT 100; BMI 34.8
[2024-09-03 18:12] LABS: Blood, Urine Negative (Negative); Glucose,Urine (UA) TRACE (Negative); Ketones,Urine TRACE (Negative); Leukocyte Esterase,Urine Negative (Negative); Nitrate,Urine POSITIVE (Negative); PH,Urine 6.5 (5.0-8.5); Protein,Urine 1+ (Negative); Specific Gravity, Urine >= 1.030 (1.005-1.030)
[2024-09-03 18:22] LABS: Barbiturates Screen,Urine Negative ng/ml (<200)
[2024-09-03 18:23] LABS: Amphetamine/Metha Screen,Urine Negative ng/ml (<1000); Benzodiazepines Screen,Urine Negative ng/ml (<200)
[2024-09-03 18:24] LABS: Cannabinoid Screen,Urine Negative ng/ml (<50)
[2024-09-03 18:25] LABS: Cocaine Screen,Urine Negative ng/ml (<300); Methadone Screen,Urine Negative ng/ml (<300)
[2024-09-03 18:26] LABS: Opiate Screen,Urine Negative ng/ml (<300); Phencyclidine Screen,Urine Negative ng/ml (<25)
[2024-09-03 18:44] LABS: Appearance,Urine Slightly Cloudy (Clear); Bilirubin,Urine 1+ (Negative); Color,Urine Amber (Yellow)
[2024-09-03 18:53] LABS: Bacteria,Urine Trace /lpf; Mucus,Urine 3+ /lpf
[2024-09-03] MEDS: CEFAZOLIN SODIUM 2 GM in 0.9 % SODIUM CHLORIDE 100 ML IV (19:08)
[2024-09-03] MEDS: DEXTROSE 5%-LACTATED RINGERS 1,000 ML 999 ML IV ×2 (19:09→20:25)
== END 2024-09-03 22:00 | disposition home or self-care (01) ==
LOC: OBOUT 17:43 → OB 17:44
PROVIDERS: PCP Internal Medicine; Visit Provider Nurse Practitioner Obstetrics & Gynecology
DX: O60.03 Preterm labor without delivery, third trimester (principal); Z3A.37 37 weeks gestation of pregnancy; O23.43 Unspecified infection of urinary tract in pregnancy, third trimester; N39.0 Urinary tract infection, site not specified
CPT/HCPCS: 80307; 81001; 87086; G0463

== ENCOUNTER 2024-09-10 05:17 | Outpatient (CLI) | payer BC, SELFPAY ==
[2024-09-10 05:21] VITALS: BP 123/93; PULSE 74; RESP 20; TEMP 36.5; O2SAT 100; BMI 34.4
[2024-09-10 05:57] LABS: Amphetamine/Metha Screen,Urine Negative ng/ml (<1000)
[2024-09-10 05:58] LABS: Barbiturates Screen,Urine Negative ng/ml (<200); Benzodiazepines Screen,Urine Negative ng/ml (<200)
[2024-09-10 05:59] LABS: Cannabinoid Screen,Urine Negative ng/ml (<50)
[2024-09-10 06:00] LABS: Cocaine Screen,Urine Negative ng/ml (<300); Methadone Screen,Urine Negative ng/ml (<300)
[2024-09-10 06:01] LABS: Opiate Screen,Urine Negative ng/ml (<300)
[2024-09-10 06:02] LABS: Phencyclidine Screen,Urine Negative ng/ml (<25)
[2024-09-10 06:14] LABS: Microscopic, Urine URINE MICROSCOPIC (MICROSCOPIC)
[2024-09-10 06:15] LABS: Appearance,Urine CLEAR (Clear); Bilirubin,Urine Negative (Negative); Blood, Urine Negative (Negative); Color,Urine YELLOW (Yellow); Glucose,Urine (UA) Negative (Negative); Ketones,Urine Negative (Negative); Leukocyte Esterase,Urine TRACE (Negative); Nitrate,Urine Negative (Negative); Protein,Urine Negative (Negative); Specific Gravity, Urine 1.015 (1.005-1.030); Urobilinogen,Urine 0.2 EU/dl (0.2)
[2024-09-10] MEDS: LACTATED RINGERS 1000ML 1,000 ML 999 ML IV (07:00)
[2024-09-10] MEDS: BUTALB/ACETAMINOPHEN/CAFFEINE 50MG/325MG/40MG TAB 1 EACH PO (07:04)
[2024-09-10 07:36] LABS: Bacteria,Urine Trace /lpf
== END 2024-09-10 08:21 | disposition home or self-care (01) ==
LOC: OBOUT 05:19 → OB 05:20
PROVIDERS: PCP Internal Medicine; Visit Provider Obstetrics & Gynecology
DX: O26.893 Other specified pregnancy related conditions, third trimester (principal); R51.9 Headache, unspecified; Z3A.38 38 weeks gestation of pregnancy
CPT/HCPCS: 80307; 81001; G0463; J7120

== ENCOUNTER 2024-09-12 23:17 | Outpatient (CLI) | payer BC, SELFPAY ==
[2024-09-12 23:20] VITALS: BMI 34.4
[2024-09-12 23:30] LABS: Microscopic, Urine URINE MICROSCOPIC (MICROSCOPIC)
[2024-09-12 23:32] VITALS: BP 118/69; PULSE 90; RESP 18; O2SAT 99; BMI 34.4
[2024-09-12 23:32] LABS: Appearance,Urine CLEAR (Clear); Blood, Urine Negative (Negative); Color,Urine YELLOW (Yellow); Glucose,Urine (UA) Negative (Negative); Ketones,Urine TRACE (Negative); Leukocyte Esterase,Urine Negative (Negative); Nitrate,Urine Negative (Negative); Protein,Urine TRACE (Negative); Specific Gravity, Urine >= 1.030 (1.005-1.030)
[2024-09-12 23:36] LABS: Bilirubin,Urine 1+ (Negative)
[2024-09-12 23:45] LABS: Barbiturates Screen,Urine Positive ng/ml (<200)
[2024-09-12 23:46] LABS: Amphetamine/Metha Screen,Urine Negative ng/ml (<1000); Bacteria,Urine 1+ /lpf; Benzodiazepines Screen,Urine Negative ng/ml (<200); Mucus,Urine 1+ /lpf
[2024-09-12 23:47] LABS: Cannabinoid Screen,Urine Negative ng/ml (<50); Methadone Screen,Urine Negative ng/ml (<300)
[2024-09-12 23:48] LABS: Cocaine Screen,Urine Negative ng/ml (<300)
[2024-09-12 23:49] LABS: Opiate Screen,Urine Negative ng/ml (<300); Phencyclidine Screen,Urine Negative ng/ml (<25)
[2024-09-12] MEDS: LACTATED RINGERS 1000ML 1,000 ML 999 ML IV (23:50)
[2024-09-13] MEDS: LACTATED RINGERS 1000ML 1,000 ML 999 ML IV (01:10)
== END 2024-09-13 01:58 | disposition home or self-care (01) ==
LOC: OBOUT 23:18 → OB 23:19
PROVIDERS: PCP Internal Medicine; Visit Provider Obstetrics & Gynecology
DX: O47.1 False labor at or after 37 completed weeks of gestation (principal)
CPT/HCPCS: 80307; 81001; G0463; J7120

== ENCOUNTER 2024-09-14 02:41 | Outpatient (CLI) | payer BC, SELFPAY ==
[2024-09-14 02:44] VITALS: BMI 34.8
[2024-09-14 02:48] VITALS: BMI 34.6
[2024-09-14 02:57] LABS: Appearance,Urine CLEAR (Clear); Blood, Urine Negative (Negative); Color,Urine YELLOW (Yellow); Glucose,Urine (UA) Negative (Negative); Ketones,Urine TRACE (Negative); Leukocyte Esterase,Urine Negative (Negative); Microscopic, Urine URINE MICROSCOPIC (MICROSCOPIC); Nitrate,Urine Negative (Negative); Protein,Urine TRACE (Negative); Specific Gravity, Urine >= 1.030 (1.005-1.030); Urobilinogen,Urine 0.2 EU/dl (0.2)
[2024-09-14 03:00] LABS: Bilirubin,Urine 1+ (Negative)
[2024-09-14 03:07] LABS: Bacteria,Urine 1+ /lpf; Calcium Oxalate Crystals,Urine 1+ /lpf; Mucus,Urine 1+ /lpf
[2024-09-14 04:13] LABS: Amphetamine/Metha Screen,Urine Negative ng/ml (<1000); Barbiturates Screen,Urine Positive ng/ml (<200)
[2024-09-14 04:14] LABS: Benzodiazepines Screen,Urine Negative ng/ml (<200); Cannabinoid Screen,Urine Negative ng/ml (<50)
[2024-09-14 04:15] LABS: Cocaine Screen,Urine Negative ng/ml (<300)
[2024-09-14 04:16] LABS: Methadone Screen,Urine Negative ng/ml (<300); Opiate Screen,Urine Negative ng/ml (<300)
[2024-09-14 04:17] LABS: Phencyclidine Screen,Urine Negative ng/ml (<25)
[2024-09-14] MEDS: ALUMINUM/MAGNESIUM/SIMETHICONE 30ML UDC 30 ML PO (04:37)
[2024-09-14 05:02] LABS: Fetal Membrane Rupture (Rapid) Negative (Negative)
== END 2024-09-14 05:22 | disposition home or self-care (01) ==
LOC: OBOUT 02:42 → OB 02:43
PROVIDERS: PCP Internal Medicine; Visit Provider Obstetrics & Gynecology
DX: O47.1 False labor at or after 37 completed weeks of gestation (principal)
CPT/HCPCS: 80307; 81001; 84112; G0463

== ENCOUNTER 2024-09-15 12:36 | Inpatient (IN) | payer BC, SELFPAY ==
[2024-09-15 13:34] VITALS: BP 128/78; PULSE 104; RESP 18; TEMP 36.6; O2SAT 99; BMI 34.4
[2024-09-15 14:12] LABS: Basophils % 0.3 % (0.1-2.0); Eosinophils # 0.2 K/mm3 (0.0-0.4); Eosinophils % 1.4 % (0.1-12.0); Hematocrit 31.2 % (37.0-47.0); Hemoglobin 10.4 g/dL (12.2-16.2); Lymphocytes # 1.9 K/mm3 (0.7-4.5); Lymphocytes % 18.1 % (10-50); Mean Corpuscular HGB Conc 33.2 g/dL (31.8-35.4); Mean Corpuscular Hemoglobin 27.7 pg (27.0-31.2); Mean Corpuscular Volume 83.4 fl (81-99); Mean Platelet Volume 7.8 fl (7.4-10.4); Monocytes # 0.7 K/mm3 (0.1-1.0); Monocytes % 6.3 % (1.7-9.3); Neutrophils # 7.7 K/mm3 (1.8-7.8); Platelet Count 372 K/mm3 (142-424); Red Blood Count 3.74 M/mm3 (4.20-5.40); Red Cell Distribution Width 16.5 % (11.5-17.5); White Blood Count 10.4 K/mm3 (4.8-10.8)
--- NOTE | 2024-09-15 14:56 | HMH.PHAINT1 ---
Pharmacy Intervention Comments: Home medications verified using list from pharmacy.
[2024-09-15] MEDS: miSOPROStol 100MCG TABLET 50 MCG PO ×2 (14:57→20:56)
[2024-09-15 15:51] LABS: Microscopic, Urine URINE MICROSCOPIC (MICROSCOPIC)
[2024-09-15 15:58] LABS: Appearance,Urine CLEAR (Clear); Bilirubin,Urine Negative (Negative); Blood, Urine Negative (Negative); Color,Urine YELLOW (Yellow); Glucose,Urine (UA) Negative (Negative); Ketones,Urine Negative (Negative); Leukocyte Esterase,Urine Negative (Negative); Nitrate,Urine Negative (Negative); Protein,Urine Negative (Negative); Specific Gravity, Urine >= 1.030 (1.005-1.030); Urobilinogen,Urine 0.2 EU/dl (0.2)
[2024-09-15 16:15] LABS: Amphetamine/Metha Screen,Urine Negative ng/ml (<1000)
[2024-09-15 16:16] LABS: Barbiturates Screen,Urine Positive ng/ml (<200)
[2024-09-15 16:17] LABS: Benzodiazepines Screen,Urine Negative ng/ml (<200); Cannabinoid Screen,Urine Negative ng/ml (<50)
[2024-09-15 16:18] LABS: Cocaine Screen,Urine Negative ng/ml (<300)
[2024-09-15 16:19] LABS: Methadone Screen,Urine Negative ng/ml (<300); Opiate Screen,Urine Negative ng/ml (<300)
[2024-09-15 16:20] LABS: Phencyclidine Screen,Urine Negative ng/ml (<25)
[2024-09-15 16:42] LABS: Bacteria,Urine 4+ /lpf
[2024-09-15 16:43] LABS: Squamous Epithelial Cell,Urine 50-100 #/hpf (0-5)
[2024-09-15] MEDS: BUTORPHANOL TARTRATE 1 MG/ML VIAL IV (22:17)
[2024-09-16] MEDS: BUTORPHANOL TARTRATE 1 MG/ML VIAL IV ×3 (01:34→21:01)
[2024-09-16] MEDS: miSOPROStol 100MCG TABLET 50 MCG PO (03:11)
--- NOTE | 2024-09-16 08:33 | EXP.OB.APHP ---
OB - H&P: HPI Antepartum History of Present Illness Chief complaint: Elective induction of labor History of present illness: Ms Autumn Muñoz is a 28 yo at 39w2d who presents to [facility] L&D for scheduled elective induction of labor. She complains of hip pain and pelvic pressure and vaginal pressure. Baby is active. No leakage of fluid or vaginal bleeding. GBS bactiuria on initial ob visit. History of Present Criteria for establishing EDC:: LMP confirmed by 1st trimester US care: good care Ultrasounds: normal mid trimester US Obstetrical complications: none Medical complications: none Labs Blood type: O (+) positive Rubella: immune RPR/VDRL: nonreactive GBS status: positive HBsAG: negative PFSH PFSH Disclaimer: The information contained in this section may have been updated after the patient was seen, as this information can be updated by other users. Medical History (Updated 09/16/24 @ 08:45 by Monique Dubose DO) Encounter for induction of labor 39 weeks gestation of UTI (urinary tract infection) in in third trimester Constipation during GBS bacteriuria History of migraine headaches Depression affecting Anxiety in , antepartum Maternal asthma Nausea/vomiting in History of maternal chlamydia infection, currently Surgical History [place] teeth extracted Family History Other Anemia Asthma Cancer Coronary artery disease Diabetes Heart attack Hyperlipidemia Hypertension Kidney disease Thyroid disorder Social History Smoking Status: Never smoker alcohol intake: never substance use type: former substance user and marijuana current occupational status: employed Travel in the last 8 weeks: None Review of Systems Review of Systems Review of systems:: pertinent systems reviewed and negative unless documented below *Genitourinary Comments: + pelvic pressure, vaginal pressure *Musculoskeletal Comments: + hip pain Meds Home Medications and Allergies Home Medications ?Medication ?Instructions ?Recorded ?Confirmed ?Type vits no.126-ferrous fum 1 tab PO DAILY 02/12/24 09/15/24 History 28 mg iron-folic acid 800 mcg tablet (Classic ) ferrous sulfate 325 mg (65 mg 325 mg PO DAILY #30 tabs 09/06/24 09/15/24 Rx iron) tablet,delayed release New Prescriptions to Start Prescriptions: Allergies Allergy/AdvReac Type Severity Reaction Status Date / Time No Known Allergies Allergy Verified 09/09/24 13:02 OB - H&P: Exam Physical Exam Vital signs: Temp Pulse Resp BP Pulse Ox O2 Del Method 97.9 F 104 H 18 128/78 99 Room Air 09/15/24 13:34 09/15/24 13:34 09/15/24 13:34 09/15/24 13:34 09/15/24 13:34 09/15/24 13:34 Constitutional cooperative and agitated Routine HEENT Exam Head: Present normocephalic and atraumatic Eye: Absent conjunctivae pink ENT: Present mucous membranes moist Routine Neck Exam Present full ROM Routine Respiratory Exam Present CTA bilaterally and normal respiratory effort Routine Cardiovascular Exam Present RRR Routine Abdominal Exam Present soft (Gravid); Absent tenderness Routine Rectal Exam Patient deferred: visual exam Routine Exam External: Present normal urethra appearance; Absent erythema, tenderness, lesions or lacerations Routine Extremities Exam Present full ROM; Absent edema or calf tenderness Routine Neurological Exam Present alert, moving all extremities and normal speech Routine Psychiatric Exam Present normal affect and cooperative Detailed Labor and Delivery Exam Dilation (cm): 1 Effacement (%): 60 Cervix position: posterior station: -3 Consistency: medium Membranes: intact Baseline heart rate: 120 monitor accelerations: Present monitor decelerations: None skilled nursing variability: Moderate (11-25) OB - Results Labs Labs: Short CBC 09/15/24 Range/Units 13:57 WBC 10.4 (4.8-10.8) K/mm3 Hgb 10.4 L (12.2-16.2) g/dL Hct 31.2 L (37.0-47.0) % Plt Count 372 (142-424) K/mm3 Urine 09/15/24 Range/Units 13:12 Urine Color Yellow (Yellow) Urine Appearance Clear (Clear) Urine pH 6.0 (5.0-8.5) Ur Specific [place] >= 1.030 (1.005-1.030) Urine Protein Negative (Negative) Urine Glucose (UA) Negative (Negative) OB - A/P Antepartum (1) 39 weeks gestation of : Status: Acute (2) Encounter for induction of labor: Status: Acute (3) GBS bacteriuria: Problem details: Urine ID + GBS on 03/11/24 She will need abx in labor regardless of RV swab Status: Acute (4) Maternal asthma: Status: Acute (5) Depression affecting : Status: Acute (6) Anxiety in , antepartum: Status: Acute (7) History of migraine headaches: Status: Acute Additional Plan Additional Information:: Admit to [facility] L&D for elective induction of labor GBS bactiuria on initial ob visit. Ampicillin for GBS prophylaxis Induction of labor with Cytotec 50 mcg x 3 doses. Minimal cervical change after 3 doses of Cytotec. Pitocin to start at 0900 NST reactive, category 1 Close monitoring
[2024-09-16] MEDS: AMPICILLIN SODIUM 2 GM in 0.9 % SODIUM CHLORIDE 100 ML IV (09:03)
[2024-09-16] MEDS: OXYTOCIN/RINGERS LACTATE 30 UNITS/500 ML BAG IV (09:03)
[2024-09-16] MEDS: LACTATED RINGERS 1000ML 1,000 ML 500 ML IV (09:04)
[2024-09-16] MEDS: DEXTROSE 5%-LACTATED RINGERS 1,000 ML 125 ML IV (09:04)
[2024-09-16 09:12] VITALS: BP 123/82; PULSE 88; RESP 16; TEMP 37.1; O2SAT 99
[2024-09-16 10:19] LABS: Rapid Plasma Reagin Ab Titer Non Reactive titer (NonRea<1:1)
[2024-09-16] MEDS: ONDANSETRON 4MG/2ML VIAL 4 MG IV (13:49)
[2024-09-16] MEDS: miSOPROStol 100MCG TABLET 25 MCG VG ×2 (16:42→20:58)
--- NOTE | 2024-09-16 17:21 | EXP.PN ---
Subjective *Date: 09/16/24 *Time: 17:21 Interval history: Patient reports she is feeling well. She is just showered and ate a little bit. She is ready to try again. Exam Data for Last 24 hours Vital signs and Labs for Last 24 Hours: Temp Pulse Resp BP Pulse Ox O2 Del Method 98.7 F 88 16 123/82 99 Room Air 09/16/24 09:12 09/16/24 09:12 09/16/24 09:12 09/16/24 09:12 09/16/24 09:12 09/16/24 09:12 Laboratory Results - last 24 hr 09/15/24 13:57: RPR Titer Non reactive I & O for Last 24 hours: Intake & Output 09/13/24 09/14/24 09/15/24 09/16/24 23:59 23:59 23:59 23:59 Weight 201 lb Narrative: Cervical exam: 1.5/50/-3/soft/posterior Assessment and Plan *Assessment and plan (1) Encounter for induction of labor: Status: Acute Category: Medical Code(s): Z34.90 - Encounter for supervision of normal , unspecified, unspecified trimester (2) 39 weeks gestation of : Status: Acute Category: Medical Code(s): Z3A.39 - 39 weeks gestation of Plan Discussed the risk of Mahoney balloon. Discussed that it would feel extremely uncomfortable. Discussed how it worked and the mechanical cervical dilation/effacement that it would likely provide. Discussed using it with Pitocin versus Cytotec. Patient elected to proceed with vaginal Cytotec. She has previously had 3 doses of p.o. Cytotec. Followed by a course of Pitocin. She had received her first initial dose of loading GBS prophylaxis antibiotics but has not received maintenance antibiotics. We will restart antibiotics with a second loading dose when the Mahoney balloon is removed in 12 hours. 80 mL was placed in the uterine as well as in the vaginal balloon. Instructions to remove 10 mL from uterine and 20 mL from vaginal if patient was unable to tolerate the Mahoney balloon were given. Discussed use of Pitocin if unable to tolerate Cytotec placement in 4 hours. Orders given to start Pitocin with a rate of one by one and a max of 10 milliunits. Patient and family members present voiced understanding and desire to proceed
[2024-09-16] MEDS: SODIUM CHLORIDE 0.9% 10ML FLUSH SYRINGE 10 ML IV (17:41)
[2024-09-17] MEDS: miSOPROStol 100MCG TABLET 25 MCG VG (00:59)
[2024-09-17] MEDS: BUTORPHANOL TARTRATE 1 MG/ML VIAL IV (03:10)
[2024-09-17] MEDS: AMPICILLIN SODIUM 2 GM in 0.9 % SODIUM CHLORIDE 100 ML IV (04:01)
[2024-09-17] MEDS: AMPICILLIN SODIUM 1 GM in 0.9 % SODIUM CHLORIDE 50 ML IV ×4 (08:00→19:34)
--- NOTE | 2024-09-17 08:27 | EXP.LABOR.NO ---
Labor Note Subjective: Date: 09/17/24 Time: 08:27 irregular contractions Objective: NST:: Reactive Contractions:: infrequent Cervical Dilation:: 5 Effacement:: 80% Station: -3 Membranes: ruptured (AROM, clear fluid, tolerated well) Fetus: Monitoring?: No monitoring type:: External Assessment: Labor progressing?: Yes Cephalopelvic disproportion?: No Plan: Anesthesia for epidural?: Yes Plan for ?: No Continue to monitor?: Yes Start pushing?: No
[2024-09-17] MEDS: OXYTOCIN/RINGERS LACTATE 30 UNITS/500 ML BAG IV (08:50)
[2024-09-17] MEDS: ONDANSETRON 4MG/2ML VIAL 4 MG IV (09:00)
--- NOTE | 2024-09-17 09:51 | EXP.ANES.CKL ---
[facility] Disclaimer: The information contained in this section may have been updated after the patient was seen, as this information can be updated by other users. Medical History Encounter for induction of labor 39 weeks gestation of UTI (urinary tract infection) in in third trimester Constipation during GBS bacteriuria History of migraine headaches Depression affecting Anxiety in , antepartum Maternal asthma Nausea/vomiting in History of maternal chlamydia infection, currently Surgical History [place] teeth extracted Family History Other Anemia Asthma Cancer Coronary artery disease Diabetes Heart attack Hyperlipidemia Hypertension Kidney disease Thyroid disorder Social History Smoking Status: Never smoker alcohol intake: never substance use type: former substance user and marijuana current occupational status: employed Travel in the last 8 weeks: None [facility] Anesthesia Checklist Patient Identification Patient Identification: Arm Band and Verbal (Name & ) Structural Data Admitted From: Inpatient Planned Operative Procedure/s: Labor epidural Consent for Planned Operative Procedure(s) Verified: Yes Verified Documents: Surgical Consent and History and Physical NPO Status Verified Time NPO: 00:00 Chart Verification Results Verified: CBC Additional verifications Patient : Yes Anesthesia Reactions: No Airway Assessment Mallampati Score:: Class II C-Spine Mobility Assessed: Yes TMJ Mobility Assessed: Yes Dentition: Good Dentition Neurological Assessment Level of Consciousness: Awake Hx Seizures: No Numbness or tingling in extremities: No Anesthesia Plan Anesthesia Risk discussed: Yes Anesthesia Plan: Verified ASA Class: II Anesthesia Type: Epidural
[2024-09-17] MEDS: SODIUM CHLORIDE 0.9% 25ML BAG 25 ML IV (09:58)
[2024-09-17] MEDS: PROMETHAZINE HCL 25MG/ML 1ML VIAL 12.5 MG IV (09:58)
[2024-09-17] MEDS: ePHEDrine SULF 50MG/ML VIAL 10 MG IV (10:36)
--- NOTE | 2024-09-17 11:04 | EXP.LABOR.NO ---
Labor Note Subjective: Date: 09/17/24 Time: 11:16 regular contraction Objective: NST:: Reactive (currently appears to be in a sleep cycle) Contractions:: every 4-5 minutes Cervical Dilation:: 6 Effacement:: 90% Station: -2 Membranes: ruptured Fetus: Monitoring?: Yes Assessment: Labor progressing?: Yes Cephalopelvic disproportion?: No Plan: Anesthesia for epidural?: Yes Plan for ?: No Continue to monitor?: Yes
[2024-09-17] MEDS: METOCLOPRAMIDE HCL 10MG/2ML VIAL 10 MG IVP (13:35)
[2024-09-17] MEDS: DEXTROSE 5%-LACTATED RINGERS 1,000 ML 125 ML IV (14:27)
[2024-09-17] MEDS: AZITHROMYCIN 500 MG in 0.9 % SODIUM CHLORIDE 250 ML 250 MG IV (19:43)
--- NOTE | 2024-09-17 21:13 | EXP.LABOR.NO ---
Labor Note Subjective: Date: 09/17/24 Time: 21:13 irregular contractions Comment:: Pt was brought in for induction on and received 3 doses of 50mcg PO cytotec, without change. On thursday morning pitocin was started and increased to 20 without regular contractions or cervical change. She was given a break and allowed to shower and eat. A Cervical ripening balloon was placed and vaginal cytotec 25mcg every 4hours was initiated. This morning, Thursday, she had AROM with clear fluid and pitocin was started. It was increased to a max of 21. When I checked her at 2029 she was 6/90/-1 and had meconium stained fluid. Mom remained afebrile. I offered the patient a delivery and she elected to proceed. Objective: Cervical Dilation:: 6 Effacement:: 90% Membranes: ruptured and artificially ruptured Fetus: Monitoring?: Yes monitoring type:: External Assessment: Labor progressing?: No Plan: Anesthesia for epidural?: Yes Plan for ?: Yes Comment:: Reviewed the risks benefits and alternatives to delivery. Discussed the risk of bleeding, infection injury to the surrounding structures. Patient consented to blood transfusion to medically necessary. Reviewed the rare risk of hysterectomy if bleeding is unable to be controlled. Discussed risk of infection, the patient has no allergies and will receive 2 g of Ancef and 500mg of Azithromycin preoperatively. Reviewed the risk of injury to surrounding structures including the bowel, bladder, reproductive organs, and neurovascular bundles. Patient voiced understanding. Patient and significant other voiced understanding desire to proceed
--- NOTE | 2024-09-17 22:23 | P.OP_ITS ---
Date of procedure: 09/17/24 Pre-op Diagnosis:: 1. 39 weeks 3days gestation, Yip 2. GBS bactiuria 3. Failure to Progress 4. Request for Delivery Post-op Diagnosis:: 1. 39 weeks 3days gestation, Yip 2. GBS bactiuria 3. Failure to Progress 4. Request for Delivery 5. Hemorrhage Procedure performed:: Primary Delivery Surgeon:: Nevaeh Anderson DO Reinforcing Steel Machine Operator(s):: Kimberly Mares MD COUNTING MACHINE OPERATOR:: Emily Michel Anesthesia: epidural Estimated blood loss (mL): 1,100 Operative findings:: 1. Live viable male infant: Armando. Weight: 7pounds 15ounces. Apgars 8 and 9 at 1 and 5 minutes respectively 2. Normal-appearing fallopian tubes and ovaries bilaterally Operative note:: Medications: 2 g of Ancef, 500mg IV Azithromycin, 1g TXA, 0.2mg of IM Methergine, 1000mcg of MT Cytotec Summary: Procedure explained in its entirety. The patient was counseled on the risks and benefits of section including bleeding, vascular injury, infection, and injury to the surrounding structures. Hemorrhage requiring life saving blood transfusion resulting in blood born viral infection or allergic reaction was explained and the patient consented to blood transfusion. Possible need for further operative measures prolonging recovery time and hospitalization reviewed to include hysterectomy. Procedure explained in its entirety and patient had no further questions. Consented to procedure. The patient was taken back to the operating room where adequate epidural anesthesia was obtained. Pneumatic compression stockings applied to lower ex tremities. Ancef and azithromycin were administered for infection prophylaxis. She was placed in the dorsal supine position Urinary catheter had previously been placed and found to be draining miracle-colored urine. The patient was prepped and draped in sterile fashion. Anesthesia was tested and and found to be adequate. A Pfannenstiel skin incision was made with the scalpel. Subcutaneous bleeding vessels were cauterized with the bovie. The incision was taken down to the fascia with the bovie. The fascia was knicked in the midline and sharply extended laterally. The superior aspect of the fascia was grasped with Edmond clamps and the rectus muscle was taken down sharply. The rectus muscle was sharply dissected from the midline with Mayos. This process was repeated inferiorly. The rectus muscles were in the midline, peritoneum was identified and entered bluntly. Alfa O retractor was placed. A bladder flap was created with Metzenbaum scissors and [place] pickups. The lower uterine segment was easily identified, sharply incised, and entered bluntly with the surgeon's index finger. Incision was then extended in a superior and inferior fashion by blunt separation. Membranes were ruptured revealing clear fluid, although previously meconium stained fluid was noted. The fetus was in cephalic presentation. The head was carefully elevated out of the pelvis. Fundal pressure was applied when head was brought into incision. The infants head was delivered without difficulty. The shoulder and body followed without complication. Delivery occurred at 2152. The mouth and nose were suctioned with a bulb. The umbilical cord was clamped and cut. was taken to warmer for evaluation by the color maker formulator. Cord blood was collected. The placenta was delivered via fundal massage. IV Pitocin was initiated. Inside of the uterus was gently cleared of blood and clots with lap sponge. The uterus was very boggy and a significant amount of bleeding was noted. TXA and methergine were ordered. The hysterotomy was closed with 0 Vicryl in a running locked fashion. The lower uterine segment was visualized and noted to be hemostatic. The uterus remained boggy after several minutes of continued fundal massage, rectal cytotec was ordered. The ovaries and tubes were found to be normal. The posterior aspect of the uterus was cleared of blood clot with a damp lap sponge. The gutters were inspected bilaterally and cleared of blood and clots with lap sponges. The uterine incision was reinspected and hemostasis noted. Alfa O retractor was removed. The peritoneum was reapproximated using a 2-0 Monocryl in a nonlocked running fashion. The fascia was closed in a running nonlocked fashion using 0 Vicryl and 0-PDS x2 meeting right of midline. Decision was made to transition to PDS as the pt had significant emesis. Fascia was noted as not having gaps or defects. The subcutaneous fat was closed with 2-0 Monocryl interrupted sutures x5. Skin was closed with the INSORB suture in a subcuticular fashion. Patient tolerated the procedure well and all counts were correct x3, per nursing. Patient will receive tap blocks and then be transported to the OB PACU for recovery and infant bonding. She will receive a second IV per hemorrhage protocol. Condition: stable Disposition: PACU Specimens:: 1. Live viable male infant 2. Cord blood Complications:: None
[2024-09-17 22:30] VITALS: BP 131/79; PULSE 107; RESP 16; TEMP 37.2; O2SAT 99
[2024-09-17 22:40] VITALS: BP 125/88; PULSE 99; RESP 16; O2SAT 99
[2024-09-17 22:50] VITALS: BP 144/74; PULSE 107; RESP 16; O2SAT 99
[2024-09-17 23:00] VITALS: BP 148/83; PULSE 93; RESP 16; O2SAT 99
[2024-09-17] MEDS: miSOPROStoL 200 MCG TABLET 1000 MCG RC (23:00)
[2024-09-17] MEDS: OXYTOCIN/RINGERS LACTATE 30 UNITS/500 ML BAG 40 UNITS IV (23:15)
--- NOTE | 2024-09-17 23:22 | SUR.PHASEI ---
Cytotec was given rectally 1000mg. A 2nd IV was started per dr riley and the protocol. Pt was doing well. Scant bleeding with massage.
[2024-09-17] MEDS: KETOROLAC 30MG/ML VIAL 30 MG IV (23:25)
[2024-09-17] MEDS: ACETAMINOPHEN 500MG TAB 1000 MG PO (23:26)
[2024-09-17] MEDS: OXYCODONE 5MG IMMEDIATE RELEASE TABLET 5 MG PO (23:26)
[2024-09-18] MEDS: KETOROLAC 30MG/ML VIAL 30 MG IV ×3 (05:11→17:26)
[2024-09-18] MEDS: ACETAMINOPHEN 500MG TAB 1000 MG PO ×3 (05:12→17:26)
[2024-09-18 06:36] LABS: Basophils % 0.2 % (0.1-2.0); Eosinophils % 0.1 % (0.1-12.0); Hematocrit 29.5 % (37.0-47.0); Hemoglobin 10.3 g/dL (12.2-16.2); Lymphocytes # 1.8 K/mm3 (0.7-4.5); Lymphocytes % 8.2 % (10-50); Mean Corpuscular HGB Conc 34.8 g/dL (31.8-35.4); Mean Corpuscular Hemoglobin 28.7 pg (27.0-31.2); Mean Corpuscular Volume 82.4 fl (81-99); Monocytes # 1.3 K/mm3 (0.1-1.0); Neutrophils # 18.3 K/mm3 (1.8-7.8); Neutrophils % 85.5 % (37.0-80.0); Platelet Count 374 K/mm3 (142-424); Red Blood Count 3.57 M/mm3 (4.20-5.40); Red Cell Distribution Width 16.6 % (11.5-17.5); White Blood Count 21.3 K/mm3 (4.8-10.8)
[2024-09-18 06:38] LABS: MANUAL DIFFERENTIAL MANUAL DIFFERENTIAL (MANUAL DIFF)
[2024-09-18 07:20] LABS: Lymphocytes % 11 % (10-50); Monocytes % 4 % (2-9); Neutrophils % 85 % (42-76); Platelet Estimate Normal; RBC Morphology Normal; Total Cells Counted 100
[2024-09-18] MEDS: SIMETHICONE 80MG CHEWABLE TABLET 160 MG PO (08:26)
[2024-09-18] MEDS: LANOLIN CREAM 40GM TP (08:26)
[2024-09-18] MEDS: OXYCODONE 5MG IMMEDIATE RELEASE TABLET 5 MG PO ×3 (08:26→17:48)
[2024-09-18] MEDS: LACTOBACILLUS PROBIOTIC COMB CAPSULE 1 CAP PO (08:28)
[2024-09-18] MEDS: SENNA 8.6MG TABLET 8.6 MG PO (08:28)
[2024-09-18 10:16] LABS: Microscopic, Urine URINE MICROSCOPIC (MICROSCOPIC)
[2024-09-18 10:19] LABS: Appearance,Urine TURBID (Clear); Blood, Urine 3+ (Negative); Color,Urine ORANGE (Yellow); Glucose,Urine (UA) Negative (Negative); Ketones,Urine 1+ (Negative); Leukocyte Esterase,Urine Negative (Negative); Nitrate,Urine POSITIVE (Negative); Protein,Urine 1+ (Negative); Specific Gravity, Urine >= 1.030 (1.005-1.030)
[2024-09-18 10:41] LABS: Amorphous Sediment,Urine 1+ /lpf; Bacteria,Urine 4+ /lpf; RBC,Urine Occasional #/hpf (0-3); Squamous Epithelial Cell,Urine Occasional #/hpf (0-5)
[2024-09-18 10:42] LABS: Bilirubin,Urine 2+ (Negative)
--- NOTE | 2024-09-18 17:08 | P.PN_ITS ---
Subjective *Date: 09/18/24 *Time: 17:08 Interval history: Autumn Muñoz is a G1, P1 day #1 following a primary low transverse section at 39 weeks and 4 days gestation secondary to failure to progress. Delivery was complicated by a PPH. Routine course. She is doing well, sitting up in bed, and visiting with family this afternoon. -Reports pain is well-controlled -Reports she is tolerating p.o. without nausea or vomiting. -Reports her lochia is scant. -She is breast-feeding her male -Ambulating, voiding difficulty or dysuria. Denies chest pain shortness of breath or pain in her legs. No further complaints at this time. Exam Data for Last 24 hours Vital signs and Labs for Last 24 Hours: Temp Pulse Resp BP Pulse Ox O2 Del Method 98.9 F 93 H 16 148/83 H 99 Room Air 09/17/24 22:30 09/17/24 23:00 09/17/24 23:00 09/17/24 23:00 09/17/24 23:00 09/17/24 23:00 Laboratory Results - last 24 hr 09/17/24 05:58: Urine Color [place], Urine Appearance Turbid, Urine pH 6.0, Ur Specific [place] >= 1.030, Urine Protein 1+ A, Urine Glucose (UA) Negative, Urine Ketones 1+, Urine Blood 3+ A, Urine Nitrate Positive, Urine Bilirubin 2+ A , Urine Urobilinogen 2.0, Ur Leukocyte Esterase Negative, Urine RBC Occasional, Urine WBC 3-5, Ur Squamous Epith Cells Occasional, Amorphous Sediment 1+, Urine Bacteria 4+ 09/18/24 06:16: WBC 21.3 H* D, RBC 3.57 L, Hgb 10.3 L, Hct 29.5 L, MCV 82.4, MCH 28.7, MCHC 34.8, RDW 16.6, Plt Count 374, MPV 8.0, Neut % (Auto) 85.5 H, Lymph % (Auto) 8.2 L, [place] % (Auto) 6.0, Eos % (Auto) 0.1, Baso % (Auto) 0.2, Neut # (Auto) 18.3 H, Lymph # (Auto) 1.8, [place] # (Auto) 1.3 H, Eos # (Auto) 0.0, Baso # (Auto) 0.0, Total Counted 100, Neutrophils % (Manual) 85 H, Lymphocytes % (Manual) 11, Monocytes % (Manual) 4, Platelet Estimate Normal, RBC Morphology Normal I & O for Last 24 hours: Intake & Output 09/15/24 09/16/24 09/17/24 09/18/24 23:59 23:59 23:59 23:59 Output Total 400 / 400 Balance -400 / -400 Weight 201 lb Microbiology Reports for the Last 24 Hours: Microbiology 09/15/24 13:12 Urine,Clean Catch Urine Culture - Final Escherichia coli Narrative: General: patient is alert oriented in no acute distress and responds appropriately to questions. Appears to be in minimal pain. HEENT: NCAT, EOMI, moist mucous membranes, neck supple with full ROM Cardiovascular: RRR +S1/S2, no murmurs or rubs Pulmonary: Clear to auscultation bilaterally, nonlabored breathing, symmetric chest rise Abdominal: Fundus below the umbilicus, firm, and tenderness appropriate for the period. Extremities: trace edema, no tenderness or cyanosis noted Skin: Normal turgor, intact, warm. Negative for erythema, pallor, petechia, or lesions. Well healed incision. no signs of infection, covered by dressing to be removed later today Neurologic: Negative for sensory or motor deficit Psychiatric: Normal affect, normal thought process, good judgment and insight, no depression or anxious mood appreciated. Assessment and Plan *Assessment and plan (1) delivery delivered: Status: Acute Category: Medical Code(s): O82 - Encounter for delivery without indication Plan Stable. POD#1 s/p PLTCS -Doing well. VSS. Serial lochia and fundal checks. -Continue with ambulation -Hemoglobin: 10.4--> 10.4 -O+/antibody negative -, male infant -Desires circumcision -Follow-up 2 weeks for routine visit -Dispo: home tomorrow pending mother/infant status
[2024-09-18] MEDS: PRENATAL MULTIVITAMIN W/IRON 1 EACH PO (17:26)
[2024-09-19] MEDS: KETOROLAC 30MG/ML VIAL 30 MG IV
[2024-09-19] MEDS: ACETAMINOPHEN 500MG TAB 1000 MG PO ×3 (05:53→11:57)
[2024-09-19] MEDS: IBUPROFEN 400 MG TABLET 800 MG PO ×2 (05:53→13:41)
[2024-09-19 08:36] VITALS: BP 111/65; PULSE 75; RESP 18; TEMP 36.6; O2SAT 100
--- NOTE | 2024-09-19 08:45 | P.DS_ITS ---
General Admission date:: 09/15/24 Discharge date: 09/19/24 HPI HPI HPI: POD # 2 s/p PLTCS Feeling well. Pain controlled. Breast feeding. Lochia is light. Voiding without difficulty and passing flatus. Tolerating regular diet. Denies fever/chills, chest pain and shortness of breath. No headaches, vision changes, lightheadedness/dizziness. No lower extremity swelling. Ambulating well ad lance. Hospital Course Hospital Course Hospital Course: Ms Autumn Muñoz is a 28 yo at 39w2d who presents to [facility] L[facility] for scheduled elective induction of labor. She complains of hip pain and pelvic pressure and vaginal pressure. Baby is active. No leakage of fluid or vaginal bleeding. GBS bactiuria on initial ob visit. Induction of labor was started on and received 3 doses of 50mcg PO cytotec, without cervical change change. On thursday morning pitocin was started and increased to 20 without regular contractions or cervical change. She was given a break and allowed to shower and eat. A Cervical ripening balloon was placed and vaginal cytotec 25mcg every 4hours was initiated. Thursday, she had AROM with clear fluid and pitocin was started. It was increased to a max of 21. Cervical exam at 2030 on Thursday was 6/90/-1 with meconium stained fluid. Mom remained afebrile. Patient elected for primary at this time. She underwent primary on 09/17/24. She delivered a live male baby, Armando, weighing 7 pounds 15 ounces. Apgars 8 and 9 at 1 and 5 minutes respectively. EBL 1100 mL. POD # 1 H/H: 10.3/29.5 (H/H on admission 10.4/31.2) She did well /postoperatively. Pain controlled. Breast feeding. Light lochia. Voiding without difficulty and passing flatus. Tolerating regular diet. Denies fever/chills, chest pain and shortness of breath. No headaches, dizziness/lightheadedness or vision changes. Vital signs stable, afebrile. Heart regular rate and rhythm. Lungs clear to auscultation. Abdomen soft, nontender. No lower extremity swelling. Ambulating well ad lance. Normal hospital course. She was discharged to home on POD # 2 with instructions to follow-up in the office in 2 weeks or sooner if needed. Exam Data for Last 24 hours Vital signs and Labs for Last 24 Hours: Temp Pulse Resp BP Pulse Ox O2 Del Method 97.9 F 75 18 111/65 100 Room Air 09/19/24 08:36 09/19/24 08:36 09/19/24 08:36 09/19/24 08:36 09/19/24 08:36 09/19/24 08:36 Laboratory Results - last 24 hr 09/17/24 05:58: Urine Color [place], Urine Appearance Turbid, Urine pH 6.0, Ur Specific [place] >= 1.030, Urine Protein 1+ A, Urine Glucose (UA) Negative, Urine Ketones 1+, Urine Blood 3+ A, Urine Nitrate Positive, Urine Bilirubin 2+ A , Urine Urobilinogen 2.0, Ur Leukocyte Esterase Negative, Urine RBC Occasional, Urine WBC 3-5, Ur Squamous Epith Cells Occasional, Amorphous Sediment 1+, Urine Bacteria 4+ I & O for Last 24 hours: Intake & Output 09/16/24 09/17/24 09/18/24 09/19/24 23:59 23:59 23:59 23:59 Output Total 400 / 400 Balance -400 / -400 Microbiology Reports for the Last 24 Hours: Microbiology 09/15/24 13:12 Urine,Clean Catch Urine Culture - Final Escherichia coli Constitutional Constitutional: no acute distress and cooperative *Routine HEENT Exam Head: Present normocephalic and atraumatic Eye: Absent conjunctivae pink ENT: Present mucous membranes moist *Routine Neck Exam Neck: Present full ROM *Routine Respiratory Exam Respiratory: Present CTA bilaterally and normal respiratory effort *Routine Cardiovascular Exam Cardiovascular: Present RRR *Routine Abdominal Exam Abdominal: Present soft; Absent tenderness Comments: Uterine fundus firm and below umbilicus, pfannenstiel incision clean/dry/intact *Routine Rectal Exam Patient deferred: visual exam *Routine Exam Patient deferred: external exam *Routine Extremities Exam Extremities: Present full ROM; Absent edema or calf tenderness *Routine Neurological Exam Neurological: Present alert, moving all extremities and normal speech Routine Psychiatric Exam Psychiatric: Present normal affect and cooperative Results Data Completed and Pending Labs on day of discharge: Labs from last 24 hours 09/17/24 05:58 Urine Color [place] Urine Appearance Turbid Urine pH 6.0 Ur Specific [place] >= 1.030 Urine Protein 1+ A Urine Glucose (UA) Negative Urine Ketones 1+ Urine Blood 3+ A Urine Nitrate Positive Urine Bilirubin 2+ A Urine Urobilinogen 2.0 Ur Leukocyte Esterase Negative Urine RBC Occasional Urine WBC 3-5 Ur Squamous Epith Cells Occasional Amorphous Sediment 1+ Urine Bacteria 4+ DS: Diagnosis Discharge Diagnosis (1) delivery delivered: Status: Acute Code(s): O82 - Encounter for delivery without indication Meds Home Medications and Allergies Home Medications ?Medication ?Instructions ?Recorded ?Confirmed ?Type vits no.126-ferrous fum 1 tab PO DAILY 02/12/24 09/15/24 History 28 mg iron-folic acid 800 mcg tablet (Classic ) ferrous sulfate 325 mg (65 mg 325 mg PO DAILY #30 tabs 09/06/24 09/15/24 Rx iron) tablet,delayed release ibuprofen 800 mg tablet 800 mg PO Q8H PRN pain #20 tabs 09/19/24 Rx oxycodone 5 mg tablet 5 mg PO Q4HP PRN Moderate Pain 09/19/24 Rx (4-6) #20 tabs New Prescriptions to Start Prescriptions: ibuprofen Monique Dubose oxycodone Monique Dubose Allergies Allergy/AdvReac Type Severity Reaction Status Date / Time No Known Allergies Allergy Verified 09/09/24 13:02 Discharge Plan Disposition Patient Disposition: Home, Self-Care Condition: Good Discharge Order Discharge Orders: Discharge Order (Routine); Ordered 09/19/24 Ordered By: Monique Dubose Follow up Plan Follow up with: Monique Dubose DO [Staff Physician] - 2 weeks Prescriptions/Medication Reconciliation: New oxycodone 5 mg Tablet 5 mg PO Q4HP PRN (Reason: Moderate Pain (4-6)) Qty: 20 0RF ibuprofen 800 mg tablet 800 mg PO Q8H PRN (Reason: pain) Qty: 20 0RF Continued ferrous sulfate 325 mg (65 mg iron) tablet,delayed release (DR/EC) 325 mg PO DAILY Qty: 30 2RF Rx Instructions: Take with vitamin C ([place] Juice) to help with absorption. Classic 28 mg iron- 800 mcg tablet 1 tab PO DAILY Problem Reconciliation Problems Reviewed?: Yes Patient Discharge Instructions ACTIVITY: Limited activity DIET: continue same diet and regular diet Additional Instructions: Congratulations!! Discharge: 1. Take 800 mg Ibuprofen every 8 hours as needed for pain. You can also take 500-1000 mg of Tylenol in between doses, every 6-8 hours. For more severe pain you can take Oxycodone 5 mg by mouth every 4-6 hours. 2. Nothing in the vagina for 6 weeks - no intercourse, douching or tampons. No tub baths/hot tubs or swimming pools 3. No lifting anything heavier than baby in pumpkin seat for 6 weeks 4. Reasons to return to L&D or call On-Call doctor - fever (greater than 100.4) - heavy vaginal bleeding (soaking through 1 pad in less than 2 hours) - vaginal discharge (malodorous and/or purulent) - severe headaches not resolved by medication or rest and leg tenderness/edema 4. depression/blues - Normal to feel anxious/overwhelmed for first 2 weeks - Talk to your doctor if: severe anxiety, trouble bonding with baby, withdrawing from other family members, thoughts of harming yourself or others Monique Dubose DO [facility] [phone] Print Language: Togolese Providers Primary Care Provider: Raul Najera Provider: Nevaeh Anderson Attending Provider: Nevaeh Anderson
[2024-09-19] MEDS: OXYCODONE 5MG IMMEDIATE RELEASE TABLET 5 MG PO (11:00)
[2024-09-19] MEDS: LACTOBACILLUS PROBIOTIC COMB CAPSULE 1 CAP PO (11:57)
== END 2024-09-19 15:59 | disposition home or self-care (01) | DRG 787 ==
PROVIDERS: Admitting Provider Obstetrics & Gynecology; PCP Internal Medicine; Visit Provider Obstetrics & Gynecology
PROC: 10D00Z1 Extraction of Products of Conception, Low, Open Approach (ICD-10-PCS; CPT 59514; principal; 2024-09-17 09:00)
DX: O66.40 Failed trial of labor, unspecified (principal); O72.1 Other immediate postpartum hemorrhage; Z3A.39 39 weeks gestation of pregnancy; Z37.0 Single live birth
CPT/HCPCS: 59025; 80307; 81001; 84112; 85007; 85025; 86593; 86850; 87086; 87088; 87186; 94761; C9290; G0283; G0463; J0290; J0456; J0595; J1885; J2405; J2550; J2765; J3010; J7050; J7120

== ENCOUNTER 2024-10-15 23:38 | Emergency (ER) | payer BC, SELFPAY ==
--- NOTE | 2024-10-15 23:44 | ED_ITS ---
Discharge Plan Prescriptions Prescriptions: New cephalexin 500 mg capsule 500 mg PO QID 5 Days Qty: 20 0RF No Action ferrous sulfate 325 mg (65 mg iron) tablet,delayed release (DR/EC) 325 mg PO DAILY Qty: 30 2RF Rx Instructions: Take with vitamin C ([place] Juice) to help with absorption. Classic 28 mg iron- 800 mcg tablet 1 tab PO DAILY oxycodone 5 mg Tablet 5 mg PO Q4HP PRN (Reason: Moderate Pain (4-6)) Qty: 20 0RF ibuprofen 800 mg tablet 800 mg PO Q8H PRN (Reason: pain) Qty: 20 0RF Referrals Follow up/Referrals: Raul Najera [Primary Care Provider] - See instructions Activity Restrictions/Add. Instructions Additional Instructions/Restrictions: The erythema and pain may be caused by a bacteria or by yeast infection. Please take the antibiotics as prescribed to treat a possible bacterial infection. Please apply an [id number] antifungal ointment after each breast-feeding for approximately a week to treat for possible yeast infection. Please continue to breast-feed as normal. Clinical Impressions Clinical Impression: Nipple infection associated with Instructions Patient Instructions: DI for and Nipple Soreness Print Language Print Language: New Zealander Discharge ED Provider: Channing Griffin General Adult HPI General Chief complaint: PAIN Stated complaint: poss infection on nipples Time Seen by Provider: 10/15/24 23:42 History of Present Illness HPI narrative: 28-year-old female, 1 month from first . Presents with bilateral nipple erythema and pain. She reports it has been going on for the last few days. She reports her child has thrush and she is concerned she could have a infection of her nipples. She denies any fever, denies any purulent drainage. Related Data Home Medications ?Medication ?Instructions ?Recorded ?Confirmed vits no.126-ferrous fum 1 tab PO DAILY 02/12/24 09/30/24 28 mg iron-folic acid 800 mcg tablet (Classic ) Previous Rx's ?Medication ?Instructions ?Recorded ferrous sulfate 325 mg (65 mg 325 mg PO DAILY #30 tabs 09/06/24 iron) tablet,delayed release ibuprofen 800 mg tablet 800 mg PO Q8H PRN pain #20 tabs 09/19/24 oxycodone 5 mg tablet 5 mg PO Q4HP PRN Moderate Pain 09/19/24 (4-6) #20 tabs cephalexin 500 mg capsule 500 mg PO QID 5 days #20 caps 10/15/24 Allergies Allergy/AdvReac Type Severity Reaction Status Date / Time No Known Allergies Allergy Verified 09/30/24 11:24 [facility] Disclaimer: The information contained in this section may have been updated after the p atient was seen, as this information can be updated by other users. Medical History Encounter for induction of labor 39 weeks gestation of UTI (urinary tract infection) in in third trimester Constipation during GBS bacteriuria Urine ID + GBS on 03/11/24 She will need abx in labor regardless of RV swab History of migraine headaches Depression affecting Anxiety in , antepartum Maternal asthma Nausea/vomiting in History of maternal chlamydia infection, currently Surgical History [place] teeth extracted Family History Other Anemia Asthma Cancer Coronary artery disease Diabetes Heart attack Hyperlipidemia Hypertension Kidney disease Thyroid disorder Social History Smoking Status: Current every day smoker alcohol intake: never substance use type: former substance user and marijuana current occupational status: employed Travel in the last 8 weeks: None Other Medical History Have you received the Flu Vaccine for this season: No Have you received the Pneumonia Vaccine: No ROS Obtained: Yes All systems reviewed & no additional complaints except as documented Physical Exam General General appearance: alert and in no apparent distress Head Head exam: atraumatic and normocephalic Eye Eye exam: Present normal appearance, PERRL and EOMI ENT ENT exam: Present normal oropharynx and normal external ear exam Neck Neck exam: Present normal inspection and full ROM Chest Chest inspection: Present symmetric chest wall rise and other (Mild erythema and tenderness of the bilateral nipples without ulceration, induration or purulent drainage) Respiratory Respiratory exam: Present normal lung sounds bilaterally; Absent respiratory distress Cardiovascular Cardiovascular exam: Present regular rate and normal rhythm Abdominal Exam Abdominal exam: Present soft; Absent distention, tenderness or guarding Extremities Exam Extremities exam: Present normal inspection; Absent edema or joint swelling Back Exam Back exam: Present normal inspection; Absent tenderness Neurological Exam Neurological exam: Present alert and oriented X3; Absent motor sensory deficit Psychiatric Psychiatric exam: Present normal affect and normal mood Skin Skin exam: Present warm, dry and normal color Lymphatic Lymphatic Findings: no adenopathy Medical Decision Making Medical Records Medical records reviewed: Yes I reviewed the patient's medical records. Screening: Per USPSTF and CDC recommendations, given the prevalence of disease in our region, it is our hospital?s policy to screen for HIV and viral Hepatitis for all patients aged 18 and over and those with ongoing risk factors. Emery Inquiry Pt receiving controlled substance: No Emery was queried for this patient: No Vital Signs: 10/15/24 23:52 10/15/24 23:58 Temperature 98.1 F 98.1 F Temperature Source Oral Oral Pulse Rate 55 L Pulse Rate [Left Radial] 55 L Respiratory Rate 18 18 Blood Pressure 127/68 Blood Pressure [Right Arm] 127/68 Blood Pressure Mean [Right Arm] 87 Blood Pressure Source Automatic Cuff Blood Pressure Source [Right Arm] Automatic Cuff Blood Pressure Position Sitting Blood Pressure Position [Right Arm] Sitting 02 Sat by Pulse Oximetry 99 Oxygen Delivery Method Room Air Room Air Lab Data Lab results reviewed: Yes I reviewed the patient's lab results. Orders (Tests/Meds): ED MEDICATIONS Discontinued Medications Generic Name Dose Route Start Last Admin Trade Name Freq PRN Reason Stop Dose Admin Cephalexin HCl 500 mg 10/15/24 23:53 10/16/24 00:00 Cephalexin 500mg Capsule PO 10/15/24 23:54 500 mg ONCE ONE Administration Medical Decision Narrative: 28-year-old, 1 month , presents with bilateral nipple pain and erythema, child has thrush.. History was obtained via interactive discussion with patient. On arrival, patient is [afebrile, hemodynamically stable, satting appropriately, alert, oriented x4, GCS 15], moving all extremities spontaneously. Full physical exam performed and significant for bilateral nipple erythema and tenderness, no induration or purulent drainage, no ulceration. Differential includes but is not limited to mastitis, fungal soft tissue infection,. Patient was given cephalexin for treatment of possible bacterial mastitis. She was also instructed to begin using [id number] antifungal ointment after every feeding as it is possible she could have a superficial fungal infection of the skin. Patient is discharged in stable condition with return precautions and prescription for cephalexin. Procedures Risk/Benefits of Procedure(s) Were Explained: Yes Critical Care Critical Care Time Critical Care Time: No
[2024-10-15 23:52] VITALS: BP 127/68; PULSE 55; RESP 18; TEMP 36.7; O2SAT 99; BMI 31.4
[2024-10-15 23:58] VITALS: BP 127/68; PULSE 55; RESP 18; TEMP 36.7; O2SAT 99
[2024-10-16] MEDS: cephALEXin 500MG CAPSULE 500 MG PO
== END 2024-10-16 00:04 | disposition home or self-care (01) ==
PROVIDERS: Emergency Provider Emergency Medicine; PCP Internal Medicine
DX: O91.03 Infection of nipple associated with lactation (principal)
CPT/HCPCS: 99283

== ENCOUNTER 2024-11-09 14:24 | Emergency (ER) | payer BC, SELFPAY ==
[2024-11-09 14:25] VITALS: BP 121/83; PULSE 63; RESP 18; TEMP 36.7; O2SAT 99; BMI 32.8
--- NOTE | 2024-11-09 14:51 | ED_ITS ---
<Statement entered by Anna Kirk DO - 11/09/24 16:04> I was consulted by the MANISHA, and we discussed the complexity of the problems being addressed. I approved the treatment and management plan for this patient's care in the emergency department, thus performing a substantive portion of the medical decision making. Anna Kirk DO Discharge Plan Disposition Patient Disposition: Home, Self-Care Condition: Good Prescriptions Prescriptions: New ondansetron 4 mg tablet,disintegrating 4 mg PO Q6H PRN (Reason: nausea and vomiting) Qty: 10 0RF No Action ferrous sulfate 325 mg (65 mg iron) tablet,delayed release (DR/EC) 325 mg PO DAILY Qty: 30 2RF Rx Instructions: Take with vitamin C ([place] Juice) to help with absorption. Classic 28 mg iron- 800 mcg tablet 1 tab PO DAILY sumatriptan succinate 50 mg tablet PO Patient Comments: Take one tablet at onset of headache. May repeat dose one time in 2 hours if headache not relieved. prednisone 5 mg tablets,dose pack 5 mg PO DAILY Patient Comments: TAKE 6 TABLETS BY MOUTH ON DAY 1, THEN TAKE 5 TABLETS ON DAY 2, THEN TAKE 4 TABLETS ON DAY 3, THEN TAKE 3 TABLETS ON DAY 4, THEN TAKE 2 TABLETS ON DAY 5, THEN TAKE 1 TABLET ON DAY 6 DIRECTED (NO NSAIDS WITH THIS MEDICATION) sertraline 50 mg tablet 50 mg PO DAILY Patient Comments: TAKE 1/2 tab daily x 6 days, then increase to 1 tab daily Kyleena 17.5 mcg/24 hr (5 yrs) 19.5 mg intrauterine device 1 device intrauterine Referrals Follow up/Referrals: Raul Najera [Primary Care Provider] - See instructions Activity Restrictions/Add. Instructions Additional Instructions/Restrictions: Please follow-up with your primary care provider recommend good p.o. intake with fluids, return to the emergency department any worsening signs or symptoms. Clinical Impressions Clinical Impression: Abdominal pain, Nausea and vomiting Instructions Patient Instructions: DI for Acute Abdominal Pain Print Language Print Language: Armenian Discharge ED Provider: Gera Guerrero Adult HPI General Chief complaint: Abdominal Pain Stated complaint: severe stomach pain v/d Time Seen by Provider: 11/09/24 14:37 Mode of Arrival: Ambulatory Source of Information: Patient Limitations: No Limitations Description of Symptoms (Recalled from ER Triage Doc. by RN): abdominal pain,vomiting History of Present Illness HPI narrative: 28-year-old female presents emergency department accompanied by her spouse for a less than 24-hour history of abdominal pain that is localized to the lower regions of the abdomen with nausea vomiting poor p.o. intake, she denies any constipation diarrhea hematuria hematemesis melena hematochezia, she admits to subjective fever and chills, any chest pain shortness of breath, denies any real upper respiratory type symptomatology, she does endorse recent sick contact with similar type symptoms being the , denies any urinary symptomatology such as dysuria hematuria hematochezia melena hematemesis, has any vaginal bleeding vaginal discharge or irritation. Recently had IUD placed on October 31 and she is approximately 7 weeks . She has history of anxiety/depression, she utilizes hemp/CBD on occasion but denies any other drug use or alcohol use. Triage vitals unremarkable. Related Data Home Medications ?Medication ?Instructions ?Recorded ?Confirmed vits no.126-ferrous fum 1 tab PO DAILY 02/12/24 10/31/24 28 mg iron-folic acid 800 mcg tablet (Classic ) levonorgestrel 17.5 mcg/24 hr (up 1 device intrauterine 10/31/24 10/31/24 to 5 yrs) 19.5mg intrauterine device (Kyleena) prednisone 5 mg tablets in a dose 5 mg PO DAILY 10/31/24 10/31/24 pack sertraline 50 mg tablet 50 mg PO DAILY 10/31/24 10/31/24 sumatriptan succinate 50 mg tablet mg PO 10/31/24 10/31/24 Previous Rx's ?Medication ?Instructions ?Recorded ferrous sulfate 325 mg (65 mg 325 mg PO DAILY #30 tabs 09/06/24 iron) tablet,delayed release ondansetron 4 mg disintegrating 4 mg PO Q6H PRN nausea and 11/09/24 tablet vomiting #10 tabs Allergies Allergy/AdvReac Type Severity Reaction Status Date / Time No Known Allergies Allergy Verified 10/31/24 13:08 [facility] Disclaimer: The information contained in this section may have been updated after the patient was seen, as this information can be updated by other users. Medical History (Updated 11/09/24 @ 17:35 by JONI Smith) Encounter for insertion of Kyleena IUD Encounter for induction of labor 39 weeks gestation of UTI (urinary tract infection) in in third trimester Constipation during GBS bacteriuria History of migraine headaches Depression affecting Anxiety in , antepartum Maternal asthma Nausea/vomiting in History of maternal chlamydia infection, currently Surgical History [place] teeth extracted Family History Other Anemia Asthma Cancer Coronary artery disease Diabetes Heart attack Hyperlipidemia Hypertension Kidney disease Thyroid disorder Social History Smoking Status: Never smoker alcohol intake: never substance use type: former substance user and marijuana current occupational status: employed Travel in the last 8 weeks: None Other Medical History Have you received the Flu Vaccine for this season: No Have you received the Pneumonia Vaccine: No ROS Obtained: Yes All systems reviewed & no additional complaints except as documented Physical Exam General General appearance: alert and in no apparent distress Head Head exam: atraumatic and normocephalic Eye Eye exam: Present PERRL and EOMI ENT ENT exam: Present mucous membranes moist Neck Neck exam: Present normal inspection Chest Chest inspection: Present normal inspection and symmetric chest wall rise Respiratory Respiratory exam: Present normal lung sounds bilaterally; Absent respiratory distress Cardiovascular Cardiovascular exam: Present regular rate and normal rhythm Abdominal Exam Abdominal exam: Present soft, tenderness and guarding Abdominal tenderness: Present RLQ, LLQ, suprapubic and mild Comment: Some mild lower quadrant tenderness to palpation as well as suprapubic tenderness palpation with voluntary guarding, no rebound or rigidity. Extremities Exam Extremities exam: Present normal inspection Neurological Exam Neurological exam: Present alert and oriented X3 Psychiatric Psychiatric exam: Present normal affect Skin Skin exam: Present warm and dry Medical Decision Making Medical Records Medical records reviewed: Yes I reviewed the patient's medical records. Screening: Per USPSTF and CDC recommendations, given the prevalence of disease in our region, it is our hospital?s policy to screen for HIV and viral Hepatitis for all patients aged 18 and over and those with ongoing risk factors. Emery Inquiry Pt receiving controlled substance: No Emery was queried for this patient: No Vital Signs: 11/09/24 14:25 11/09/24 15:00 11/09/24 15:39 Temperature 98.1 F Temperature Source Oral Pulse Rate 74 59 L Pulse Rate [Right] 63 Respiratory Rate 18 Blood Pressure [Right Arm] 121/83 Blood Pressure Mean [Right Arm] 95 02 Sat by Pulse Oximetry 99 100 100 11/09/24 16:45 Temperature Temperature Source Pulse Rate 57 L Pulse Rate [Right] Respiratory Rate Blood Pressure [Right Arm] Blood Pressure Mean [Right Arm] 02 Sat by Pulse Oximetry 99 Lab Data Lab results reviewed: Yes I reviewed the patient's lab results. Lab Results 11/09/24 14:40: WBC 7.7, RBC 4.50, Hgb 12.3, Hct 39.0, MCV 86.7, MCH 27.3, MCHC 31.5 L, RDW 16.3, Plt Count 387, MPV 6.9 L, Neut % (Auto) 60.0, Lymph % (Auto) 31.0, [place] % (Auto) 5.6, Eos % (Auto) 3.0, Baso % (Auto) 0.4, Neut # (Auto) 4.6, Lymph # (Auto) 2.4, [place] # (Auto) 0.4, Eos # (Auto) 0.2, Baso # (Auto) 0.0, Sodium 139, Potassium 3.9, Chloride 110 H, Carbon Dioxide 28, Anion Gap 4.9 L, BUN 15, Creatinine 0.80, Estimated Creat Clear 146, Estimated GFR 87, Est GFR ( Amer) 105, Glucose 89, Lactate 0.7, Calcium 8.8, Total Bilirubin 0.3, AST 31, ALT 25, Alkaline Phosphatase 125, Total Protein 6.9, Albumin 4.0, Globulin 2.9, Albumin/Globulin Ratio 1.4, Lipase 112, Urine Color Yellow, Urine Appearance Clear, Urine pH 6.0, Ur Specific [place] >= 1.030, Urine Protein Negative, Urine Glucose (UA) Negative, Urine Ketones Negative, Urine Blood 2+ A, Urine Nitrate Negative, Urine Bilirubin Negative, Urine Urobilinogen 0.2, Ur Leukocyte Esterase Negative, Urine RBC 5-10, Urine WBC None, Ur Squamous Epith Cells 3-5, Urine Bacteria Trace, Urine Opiates Screen Negative, Urine Methadone Screen Negative, Ur Barbituates Screen Negative, Ur Phencyclidine Scrn Negative, Ur Amphetamines Screen Negative, U Benzodiazepines Scrn Negative, Urine Cocaine Screen Negative, U Marijuana (THC) Screen Positive H, HIV 1&2 Antibody Rapid Nonreactive 11/09/24 14:40 11/09/24 14:40 Orders (Tests/Meds): ED MEDICATIONS Discontinued Medications Generic Name Dose Route Start Last Admin Trade Name Bradly PRN Reason Stop Dose Admin Iopamidol 75 ml 11/09/24 15:40 11/09/24 15:40 Iopamidol-370 (76%);100ml Bottle IV 11/09/24 15:41 75 ml ONCE ONE Administration Ondansetron HCl 4 mg 11/09/24 15:01 11/09/24 15:05 Ondansetron 4mg/2ml Vial IV 11/09/24 15:02 4 mg ONCE ONE Administration Sodium Chloride 10 ml 11/09/24 15:40 11/09/24 15:40 Sodium Chloride 0.9% 10ml Syr (Rad Only) IV 11/09/24 15:41 10 ml ONCE ONE Administration ORDERS Category Date Time Status CT abdomen pelvis w con Stat Cat Scan 11/09/24 14:59 Completed Complete Blood Count Auto Diff Stat Lab 11/09/24 14:40 Completed Comprehensive Metabolic Panel Stat Lab 11/09/24 14:40 Completed Drug Screen,Urine Stat Lab 11/09/24 14:40 Completed HIV (1&2) Antibody Rapid Stat Lab 11/09/24 14:40 Completed Hep C Ab with Reflex to RNA Stat Lab 11/09/24 14:40 Received Lactic Acid Stat Lab 11/09/24 14:40 Completed Lipase Stat Lab 11/09/24 14:40 Completed Urinalysis and Microscopic Stat Lab 11/09/24 14:40 Completed Medical Decision Narrative: 28-year-old female presents to the emergency department with abdominal pain nausea vomiting last 24 hours, differential diagnose include but not limited to IUD malplacement, colitis ileitis, pancreatitis, gastroenteritis, appendicitis, diverticulitis, volvulus, small bowel obstruction, acute UTI, nephrolithiasis, ureterolithiasis, ovarian cyst, acute pyelonephritis. I discussed patient case with attending physician Dr. Guerrero Obtain basic laboratory studies lipase, lactate, CT abdomen pelvis with contrast further evaluation as characterization, obtain urinalysis. CBC and CMP are unremarkable. Urine is notable for 2+ hematuria UDS is positive for marijuana. I was notified by nursing staff at approximately 3:25 PM that the patient was complaining of Zofran maybe feel funny , will obtain EKG. Along with the attending physician reviewed the patient's EKG, sinus bradycardia 52 bpm parable within normal limits, QT interval is mildly long at 430/410 there is no STEMI. Lipase lactate are within normal limits. I reviewed the patient's CT abdomen pelvis with contrast along the corresponding radiologic report diffuse bladder wall thickening likely inflammatory. Reexamined the patient at 5:30 PM patient is improved dysarthria nausea and vomiting as well as abdominal pain, patient cleared to be discharged home to self-care after discussing results with her. Patient family agree with current treatment plan/discharge plan strict ED return precautions given. Patient follow-up PCP as directed. Prescribe 4 mg p.o. Zofran for nausea as needed. Critical Care Critical Care Time Critical Care Time: No
--- NOTE | 2024-11-09 14:59 | CT_ITS ---
FINAL REPORT TECHNIQUE: Postcontrast axial images through the abdomen and pelvis were performed. This study was performed with techniques to keep radiation doses as low as reasonably achievable, (ALARA). Individualized dose reduction techniques using automated exposure control or adjustment of mA and/or kV according to the patient's size were employed. CLINICAL HISTORY: Lower abdominal pain nausea vomiting FINDINGS: Abdomen: The lung bases are clear. The liver is normal in size and attenuation. There is mild nonspecific gallbladder wall thickening. The spleen is unremarkable. The adrenals are normal. The pancreas is unremarkable. The kidneys enhance appropriately. The aorta is normal in caliber. No free fluid or adenopathy is identified. No findings for mechanical bowel obstruction are identified. Pelvis: The appendix is normal. An IUD is seen in the uterus. There is diffuse bladder wall thickening, likely inflammatory. No free fluid, free air, abscess or adenopathy is identified. IMPRESSION: Diffuse bladder wall thickening, likely inflammatory. Reviewed, Interpreted and Dictated by Mihai Conklin III, MD Transcribed by Kimmy Reed Authenticated and [facility]
[2024-11-09 15:00] VITALS: PULSE 74; O2SAT 100
[2024-11-09] MEDS: ONDANSETRON 4MG/2ML VIAL 4 MG IV (15:05)
[2024-11-09 15:09] LABS: Microscopic, Urine URINE MICROSCOPIC (MICROSCOPIC)
[2024-11-09 15:14] LABS: Appearance,Urine CLEAR (Clear); Bilirubin,Urine Negative (Negative); Blood, Urine 2+ (Negative); Color,Urine YELLOW (Yellow); Glucose,Urine (UA) Negative (Negative); Ketones,Urine Negative (Negative); Leukocyte Esterase,Urine Negative (Negative); Nitrate,Urine Negative (Negative); Protein,Urine Negative (Negative); Specific Gravity, Urine >= 1.030 (1.005-1.030); Urobilinogen,Urine 0.2 EU/dl (0.2)
[2024-11-09 15:18] LABS: Chloride 110 mmol/L (98-107); Potassium 3.9 mmoL/L (3.5-5.1); Sodium 139 mmol/L (136-145)
[2024-11-09 15:20] LABS: Blood Urea Nitrogen 15 mg/dl (7-17); Creatinine Clearance Estimated 146 mL/min (50-200); Estimated Glomerular Filt Rate 87 ml/min (>60); GFR (African American) 105 ML/MIN (>60)
[2024-11-09 15:21] LABS: Alanine Aminotransferase 25 U/L (12-78); Albumin/Globulin Ratio 1.4 (1.1-1.8); Alkaline Phosphatase 125 U/L (38-126); Anion Gap 4.9 mEq/L (5-15); Aspartate Amino Transferase 31 U/L (14-36); Bilirubin,Total 0.3 mg/dl (0.2-1.3); Calcium 8.8 mg/dl (8.4-10.2); Carbon Dioxide 28 mmol/L (22.0-30.0); Globulin 2.9 g/dL (1.3-3.2); Glucose 89 mg/dl (74-100); Lipase 112 U/L (23-300); Total Protein,Serum 6.9 g/dl (6.3-8.2)
[2024-11-09 15:22] LABS: Lactic Acid 0.7 mmol/L (0.7-2.1)
[2024-11-09 15:23] LABS: Basophils % 0.4 % (0.1-2.0); Eosinophils # 0.2 K/mm3 (0.0-0.4); Hemoglobin 12.3 g/dL (12.2-16.2); Lymphocytes # 2.4 K/mm3 (0.7-4.5); Mean Corpuscular HGB Conc 31.5 g/dL (31.8-35.4); Mean Corpuscular Hemoglobin 27.3 pg (27.0-31.2); Mean Corpuscular Volume 86.7 fl (81-99); Mean Platelet Volume 6.9 fl (7.4-10.4); Monocytes # 0.4 K/mm3 (0.1-1.0); Monocytes % 5.6 % (1.7-9.3); Neutrophils # 4.6 K/mm3 (1.8-7.8); Platelet Count 387 K/mm3 (142-424); Red Cell Distribution Width 16.3 % (11.5-17.5); White Blood Count 7.7 K/mm3 (4.8-10.8)
[2024-11-09 15:28] LABS: Barbiturates Screen,Urine Negative ng/ml (<200)
[2024-11-09 15:29] LABS: Amphetamine/Metha Screen,Urine Negative ng/ml (<1000); Benzodiazepines Screen,Urine Negative ng/ml (<200)
[2024-11-09 15:30] LABS: Cannabinoid Screen,Urine Positive ng/ml (<50); Cocaine Screen,Urine Negative ng/ml (<300)
[2024-11-09 15:31] LABS: Methadone Screen,Urine Negative ng/ml (<300)
[2024-11-09 15:32] LABS: Opiate Screen,Urine Negative ng/ml (<300); Phencyclidine Screen,Urine Negative ng/ml (<25)
[2024-11-09 15:39] VITALS: PULSE 59; O2SAT 100
[2024-11-09 15:39] LABS: Bacteria,Urine Trace /lpf
[2024-11-09] MEDS: IOPAMIDOL-370 (76%);100ML BOTTLE 75 ML IV (15:40)
[2024-11-09] MEDS: SODIUM CHLORIDE 0.9% 10ML SYR (RAD ONLY) 10 ML IV (15:40)
--- NOTE | 2024-11-09 16:02 | ECG_ITS ---
APPROVED REPORT Exam: Resting ECG HR:52 bpm ECG Measurements Heart Rate 52 AXES KS 166 P 16 QRSd 92 QRS 73 QT 430 T 52 QTc 410 Conclusion SINUS BRADYCARDIA BORDERLINE ECG UNCONFIRMED REPORT Electronically signed by : CATRINA MARTÍNEZ, 11/10/2024 06:28:35
[2024-11-09 16:09] LABS: HIV (1&2) Antibody Rapid NONREACTIVE (NONREACTIVE)
[2024-11-09 16:45] VITALS: PULSE 57; O2SAT 99
[2024-11-09 17:41] VITALS: BP 134/76; PULSE 55; RESP 16; TEMP 36.6; O2SAT 98
[2024-11-10 08:17] LABS: HCV Ab Non Reactive (Non Reactive)
== END 2024-11-09 17:44 | disposition home or self-care (01) ==
PROVIDERS: Physician Assistant; Emergency Provider Emergency Medicine; PCP Internal Medicine
DX: R10.30 Lower abdominal pain, unspecified (principal); R11.2 Nausea with vomiting, unspecified; R50.9 Fever, unspecified
CPT/HCPCS: 74177; 80053; 80307; 81001; 83605; 83690; 85025; 86803; 87389; 93005; 96374; 99285; J2405; Q9967

== ENCOUNTER 2025-01-09 15:46 | Outpatient (CLI) | payer OTHER, SELFPAY ==
[2025-01-09 18:36] LABS: HCG,Quantitative < 2 mIU/ml (0-5.42)
[2025-01-10 14:09] LABS: Progesterone <0.1 ng/mL (.)
== END 2025-01-09 23:59 | disposition home or self-care (01) ==
LOC: LAB 15:48
PROVIDERS: PCP Internal Medicine; Visit Provider Obstetrics & Gynecology
DX: Z32.00 Encounter for pregnancy test, result unknown (principal)
CPT/HCPCS: 36415; 84144; 84702

== ENCOUNTER 2025-08-07 14:59 | Outpatient (CLI) | payer OTHER, SELFPAY ==
--- OUTSIDE RECORDS SUMMARY | 2025-06-29 10:15 | XMS_ITS | Encounter Summary ---
[facility] Organization [facility] Address [address] [place] [address] Care Team Providers Care Casing Running Machine Tender Name Role Phone Raul Najera MD Primary Care Provider [phone] Reason for Referral * Consultation (Routine) - Closed Specialty Diagnoses / Procedures Referred By Contac t Referred To Contact Orthopedic Surgery Diagnoses Trochanteric bursitis of both hips Chronic bilateral low back pain without sciatica Raul Najera MD [address] [place] [address] [place] [address] Phone: tel: fax: Misha Angela MD [address] [facility] [address] [place] [address] Phone: tel: fax: Referral ID Status Reason Start Date Expiration Date V isits Requested Visits Authorized Closed Specialty Services Required 06/29/2025 09/28/2026 1 1 * Diagnostic Imaging (Routine) - Authorized Specialty Diagnoses / Procedures Referred By Contac t Referred To Contact Diagnoses Trochanteric bursitis of both hips Chronic bilateral low back pain without sciatica Procedures XR Hip With or Without Pelvis 2 - 3 View Right XR Hip With or Without Pelvis 2 - 3 View Right Raul Najera MD [address] [place] [address] [place] [address] Phone: tel: fax: Referral ID Status Reason Start Date Expiration Date V isits Requested Visits Authorized [id number] Authorized 06/29/2025 09/28/2026 1 1 * Diagnostic Imaging (Routine) - Authorized Specialty Diagnoses / Procedures Referred By Contac t Referred To Contact Diagnoses Trochanteric bursitis of both hips Chronic bilateral low back pain without sciatica Procedures XR Spine Lumbar 4+ View Raul Najera MD [address] [place] [address] Phone: tel: fax: Referral ID Status Reason Start Date Expiration Date V isits Requested Visits Authorized [id number] Authorized 06/29/2025 09/28/2026 1 1 * Diagnostic Imaging (Routine) - Authorized Specialty Diagnoses / Procedures Referred By Contac t Referred To Contact Diagnoses Trochanteric bursitis of both hips Chronic bilateral low back pain without sciatica Procedures XR Hip With or Without Pelvis 2 - 3 View Left Raul Najera MD [address] [place] [address] [place] [address] Phone: tel: fax: Referral ID Status Reason Start Date Expiration Date V isits Requested Visits Authorized [id number] Authorized 06/29/2025 09/28/2026 1 1 Reason for Visit * Reason Comments Weight Management Encounter Details Date Type Department Care Team (Late st Contact Info) Description 06/29/2025 10:15 AM EDT Office Visit [facility] [address] [place] [address] Raul Najera MD [address] [place] [address] Moderate obesity (Primary Dx); Trochanteric bursitis of both hips; Chronic bilateral low back pain without sciatica Social History Tobacco Use Types Packs/Day Years Used Date Smoking Tobacco: Never Smokeless Tobacco: Never Tobacco Cessation:Counseling Given: Not Answered Alcohol Use Standard Drinks/Week Comments No 0 (1 standard drink = 0.6 oz pur e alcohol) PHQ-2 Answer Date Recorded Retired PHQ-9: Brief Depression Severity Measure Score 11 06/23/2023 PHQ-2 Answer Date Recorded Patient Health Questionnaire-2 Score 0 02/27/2025 Comments No Sex and Gender Information Value Date Recorded Sex Assigned at Female 11/07/2024 7:56 PM EST Legal Sex Female 11:08 AM EDT Gender Identity Not on file Sexual Orientation Not on file documented as of this encounter Last Filed Vital Signs Vital Sign Reading Time Taken Comments Blood Pressure 124/82 06/29/2025 10:02 AM EDT Pulse 80 06/29/2025 10:02 AM EDT Temperature 36.7 C (98.1 F) 06/29/2025 10:02 AM EDT Respiratory Rate - - Oxygen Saturation 98% 06/29/2025 10:02 AM EDT Inhaled Oxygen Concentration - - Weight 94.4 kg (208 lb 3.2 oz) 06/29/2025 10:02 AM EDT Height 161.9 cm (5' 3.75 ) 06/29/2025 10:02 AM E DT Body Mass Index 36.02 06/29/2025 10:02 AM EDT documented in this encounter Progress Notes * Raul Najera MD - 06/29/2025 12:22 PM EDTAssociated Problem(s): Moderate obesity Longstanding struggle with obesity, unfortunately optimal pursuing a healthy lifestyle with diet, 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 We discussed the need to improve these parameters. Patient also an excellent candidate for a GLP-1 agonistbut cannot afford, thus has been prescribed phentermine currently 15 mg daily, having a minimal success with weight loss, some reduction in appetite with no side effects. Over the last month she missed 2 weeks of the Enterra mean for logistical reasons. However based on her minimal appetite suppression, we will increase in therapy to 37.5 mg daily, reassessing clinically in 6 weeks (will take residual phentermine 15 mg at 2 tablets daily for the next couple weeks then initiate 37.5 mg daily). Advise if problems in the interim. * Raul Najera MD - 06/29/2025 12:19 PM EDTAssociated Problem(s): Trochanteric bursitis of both hips Persistence of bilateral greater than anterior hip pain, clinical picture most consistent with trochanteric bursitis. Previous transient improvement with oral prednisone, right sided trochanteric bursal injection on 05/04/2025 and left sided injection on 06/06/2025, both causing minimal to modest transient improvement only. Obtain x-rays of both hips and refer to orthopedic surgery * Raul Najera MD - 06/29/2025 12:18 PM EDTAssociated Problem(s): Chronic bilateral low back pain without sciatica Chronic intermittent back pain in the lumbar region, getting weekly chiropractic manipulation with transient improvement, no sciatic symptoms, obtain lumbar x- ray and refer to orthopedic surgery. * Raul Najera MD - 06/29/2025 10:15 AM EDT Images from the original note were not included. Answers submitted by the patient for this visit: Problem not listed (Submitted on 06/29/2025) Chief Complaint: Other medical problem Reason for appointment: Weight? anorexia: No joint pain: Yes change in stool: No headaches: Yes joint swelling: No vertigo: No visual change: No Onset: more than 5 years Chronicity: recurrent Frequency: intermittently Follow Up Office Visit Date: 06/29/2025 Patient Name: Autumn Muñoz : 1995 Chief Complaint: Chief Complaint Patient presents with Weight Management History of Present Illness: Autumn Muñoz is a 29 y.o. female who is here today for follow-up of 2 concerns, 1 of which is to review her obesity for which she has been prescribed phentermine 15 mg daily, noting in the last month she is only taken about 2 weeks of the medication, having some appetite suppression but not entirely, room for improvement regarding diet and exercise. She has gained 1 pound of weight in the last month. No side effects of the medication. Second concern relates to persistence of bilateral hip pain, more laterally but to some degree rating to the medial aspect, clinically felt most consistent with greater trochanteric bursitis per recent prior evaluations. Initially was prescribed oral prednisone with transient improvement in her pain. She did recently undergo intra trochanteric bursal steroid injection on 06/06/2025, stating only mild improvement in her discomfort, and prior to that administration of right greater trochanteric bursal injection on 05/04/2025 with initial moderate improvement but now regression. She also notes some intermittent back pain for which she gets weekly chiropractic manipulation, indicating each manipulation helps her for a coupledays before recurrence of discomfort. Subjective Review of Systems: Review of Systems I have reviewed the patients family history, social history, past medical history, past surgical history and have updated it as appropriate. Medications: Current Outpatient Medications: albuterol sulfate HFA (Ventolin HFA) 108 (90 Base) MCG/ACT inhaler, Inhale 2 puffs Every 4 (Four) Hours As Needed for Wheezing., Disp: 18 g, Rfl: 2 Cholecalciferol 25 MCG (1000 UT) tablet, Take 1 tablet by mouth Daily., Disp: , Rfl: etonogestrel-ethinyl estradiol (NUVARING) 0.12-0.015 MG/24HR vaginal ring, Insert 1 each into the vagina Every 28 (Twenty-Eight) Days. Remove after 3 weeks of each 4-week cycle, Disp: , Rfl: fexofenadine (Neha Allergy) 180 MG tablet, Take 1 tablet by mouth Daily., Disp: 90 tablet, Rfl: 0 fluticasone (FLONASE) 50 MCG/ACT nasal spray, Administer 2 sprays into the nostril(s) as directed by provider Daily., Disp: 9.9 g, Rfl: 0 fluticasone (Flovent HFA) 110 MCG/ACT inhaler, Inhale 1 puff 2 (Two) Times a Day., Disp: 10.2 g, Rfl: 11 lurasidone (LATUDA) 40 MG tablet tablet, Take 1 tablet by mouth Daily. Take with food., Disp: 30 tablet, Rfl: 1 montelukast (Singulair) 10 MG tablet, Take 1 tablet by mouth Every Night., Disp: 30 tablet, Rfl: 11 ondansetron ODT (ZOFRAN-ODT) 4 MG disintegrating tablet, Place 1 tablet on the tongue and let dissolve Every 8 (Eight) Hours As Needed for Nausea or Vomiting., Disp: 20 tablet, Rfl: 0 pantoprazole (PROTONIX) 20 MG EC tablet, Take 1 tablet by mouth Daily., Disp: 30 tablet, Rfl: 1 QUEtiapine (SEROquel) 100 MG tablet, Take 1 tablet by mouth Every Night., Disp: 90 tablet, Rfl: 1 SUMAtriptan (Imitrex) 100 MG tablet, Take one tablet at onset of headache. May repeat dose one timein 2 hours if headache not relieved., Disp: 15 tablet, Rfl: 5 triamcinolone (KENALOG) 0.1 % cream, Apply 1 Application topically to the appropriate area as directed 2 (Two) Times a Day., Disp: 60 g, Rfl: 1 phentermine 37.5 MG capsule, Take 1 capsule by mouth Every Morning., Disp: 30 capsule, Rfl: 0 Allergies: No Known Allergies Objective Physical Exam: Please see above Vital Signs: Vitals: 06/29/25 1002 BP: 124/82 BP Location: Left arm Patient Position: Sitting Cuff Size: Adult Pulse: 80 Temp: 98.1 ??F (36.7 ??C) TempSrc: Temporal SpO2: 98% Weight: 94.4 kg (208 lb 3.2 oz) Height: 161.9 cm (63.75 ) Body mass index is 36.02 kg/m??. Physical Exam Constitutional: General: She is not in acute distress. Appearance: Normal appearance. She is obese. She is not ill-appearing. Comments: Pleasant, healthy, NAD, BMI 36.0 representing a 1 pound weight gain in the last month Cardiovascular: Rate and Rhythm: Normal rate and regular rhythm. Heart sounds: Normal heart sounds. No murmur heard. No friction rub. No gallop. Pulmonary: Effort: Pulmonary effort is normal. No respiratory distress. Breath sounds: Normal breath sounds. Musculoskeletal: General: Tenderness present. No swelling, deformity or signs of injury. Comments: Minimal tenderness palpation of her lumbar spine, moderate tenderness to palpation over the bilateral trochanteric bursae, as well as to lesser degree anteriorly on the proximal thigh near the inguinal region, this discomfort in both ears accentuated by range of motion testing of her bilaterally. Negative straight leg raise bilaterally. Lower extremity neurological exam normal. Neurological: General: No focal deficit present. Mental Status: She is alert. Psychiatric: Mood and Affect: Mood normal. Procedures Results: Labs: Hemoglobin A1C Date Value Ref Range Status 02/27/2025 5.4 4.8 - 5.6 % Final Comment: Prediabetes: 5.7 - 6.4 Diabetes: >6.4 Glycemic control for adults with diabetes: <7.0 TSH Date Value Ref Range Status 02/27/2025 1.970 0.450 - 4.500 uIU/mL Final POCT Results (if applicable): Results for orders placed or performed in visit on 04/10/25 POC Rapid Strep A Collection Time: 04/10/25 10:38 AM Specimen: Swab Result Value Ref Range Rapid Strep A Screen Positive (A) Negative, VALID, INVALID, Not Performed Internal Control Passed Passed Lot Number [id number] Expiration Date 3, Covid-19 + Flu A&B AG, Veritor Collection Time: 04/10/25 10:39 AM Specimen: Swab Result Value Ref Range SARS Antigen Not Detected Not Detected, Presumptive Negative Influenza A Antigen PATY Not Detected Not Detected Influenza B Antigen PATY Not Detected Not Detected Internal Control Passed Passed Lot Number [id number] Expiration Date , Assessment / Plan Assessment/Plan: Diagnoses and all orders for this visit: 1. 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 We discussed the need to improve these parameters. Patient also an excellent candidate for a GLP-1 agonistbut cannot afford, thus has been prescribed phentermine currently 15 mg daily, having a minimal success with weight loss, some reduction in appetite with no side effects. Over the last month she missed 2 weeks of the Enterra mean for logistical reasons. However based on her minimal appetite suppression, we will increase in therapy to 37.5 mg daily, reassessing clinically in 6 weeks (will take residual phentermine 15 mg at 2 tablets daily for the next couple weeks then initiate 37.5 mg daily). Advise if problems in the interim. 2. Trochanteric bursitis of both hips Assessment & Plan: Persistence of bilateral greater than anterior hip pain, clinical picture most consistent with trochanteric bursitis. Previous transient improvement with oral prednisone, right sided trochanteric bursal injection on 05/04/2025 and left sided injection on 06/06/2025, both causing minimal to modest transient improvement only. Obtain x-rays of both hips and refer to orthopedic surgery Orders: - XR Hip With or Without Pelvis 2 - 3 View Left; Future - Cancel: XR Hip With or Without Pelvis 2 - 3 View Right; Future - XR Spine Lumbar 4+ View; Future - phentermine 37.5 MG capsule; Take 1 capsule by mouth Every Morning. Dispense: 30 capsule; Refill:0 - XR Hip With or Without Pelvis 2 - 3 View Right; Future - Ambulatory Referral to Orthopedic Surgery 3. Chronic bilateral low back pain without sciatica Assessment & Plan: Chronic intermittent back pain in the lumbar region, getting weekly chiropractic manipulation with transient improvement, no sciatic symptoms, obtain lumbar x- ray and refer to orthopedic surgery. Orders: - XR Hip With or Without Pelvis 2 - 3 View Left; Future - Cancel: XR Hip With or Without Pelvis 2 - 3 View Right; Future - XR Spine Lumbar 4+ View; Future - phentermine 37.5 MG capsule; Take 1 capsule by mouth Every Morning. Dispense: 30 capsule; Refill:0 - XR Hip With or Without Pelvis 2 - 3 View Right; Future - Ambulatory Referral to Orthopedic Surgery Vaccine Counseling: Follow Up: Return in about 6 weeks (around 08/10/2025) for Recheck. At [facility], we believe that sharing information builds trust and better relationships. You are receiving this note because you recently visited [facility]. It is possible you will see health information before a provider has talked with you about it. This kind of information can be easy to misunderstand. To help you fully understand what it means for your health, we urge you to discussthis note with your provider. Raul Najera MD [facility] [place] documented in this encounter Plan of Treatment Upcoming Encounters Date Type Department Care Team (Late st Contact Info) Description 08/10/2025 8:30 AM EDT Office Visit [facility] [address] [place] [address] [place] [phone] Raul Najera MD [address] [place] [address] [place] [address] 08/15/2025 2:00 PM EDT Office Visit [facility] [address] [place] [address] [place] [address] AntonjeffreyDa APRN [address] [place] [id number] Scheduled Orders Name Type Priority Associated Diagnoses Orde r Schedule XR Hip With or Without Pelvis 2 - 3 View Left Imaging Routine Trochanteric bursitis of both hips Chronic bilateral low back pain without sciatica Expected: 07/02/2025, Expires: 09/29/2026 XR Spine Lumbar 4+ View Imaging Routine Trochanteric bursitis of both hips Chronic bilateral low back pain without sciatica Expected: 07/02/2025, Expires: 09/29/2026 XR Hip With or Without Pelvis 2 - 3 View Right Imaging Routine Trochanteric bursitis of both hips Chronic bilateral low back pain without sciatica Expected: 07/02/2025, Expires: 09/29/2026 documented as of this encounter Visit Diagnoses Diagnosis Moderate obesity- Primary Trochanteric bursitis of both hips Chronic bilateral low back pain without sciatica documented in this encounter Care Teams Casing Running Machine Tender Relationship Specialty Start Date End Date Raul Najera MD [address] [place] [address] [place] [address] PCP - General Internal Medicine 09/13/21 documented as of this encounter
--- OUTSIDE RECORDS SUMMARY | 2025-07-11 09:30 | XMS_ITS | Encounter Summary ---
Author Organization [facility] yste Address [address] [place] [id number] Care Team Providers Care Larriman Name Role Phone Raul Najera MD Primary Care Provider [phone] Encounter Details Date Type Department Care Team (Late st Contact Info) Description 07/11/2025 9:30 AM EDT Office Visit [facility] [address] [place] [address] [place] [address] Da Grimm APRN [address] [place] [address] Bipolar 2 disorder, major depressive episode (Primary Dx); Generalized anxiety disorder Social History Tobacco Use Types Packs/Day Years Used Date Smoking Tobacco: Never Smokeless Tobacco: Never Alcohol Use Standard Drinks/Week Comments No 0 [...] Sign Reading Time Taken Comments Blood Pressure 120/82 07/11/2025 9:31 AM EDT Pulse 76 07/11/2025 9:31 AM EDT Temperature - - Respiratory Rate - - Oxygen Saturation 98% 07/11/2025 9:3 1 AM EDT Inhaled Oxygen Concentration - - Weight 94.3 kg (208 lb) 07/11/2025 9:31 AM EDT Simultaneous filing. User may be unaware of other data. Height 161.9 cm (5' 3.75 ) 07/11/2025 9 :31 AM EDT Simultaneous filing. User may be unaware of other data. Body Mass Index 35.98 07/11/2025 9:31 AM EDT documented in this encounter Progress Notes * aD Grimm APRN - 07/11/2025 9:30 AM EDT Images from the original note were not included. Office Follow Up Visit Patient Name: Autumn Muñoz : 1995 Referring Provider: Raul Najera MD Chief Complaint: Psychiatric evaluation related to: ICD-10-CM ICD-9-CM 1. Bipolar 2 disorder, major depressive episode F31.81 296.89 2. Generalized anxiety disorder F41.1 300.02 History of Present Illness: Autumn Muñoz is a 29 y.o. female who is here today for follow up appointment. I have been following her for bipolar type II and anxiety. She is currently utilizing a medication regimen of Latuda (increased to 40 mg last visit) and Seroquel 100 mg nightly for sleep. She returns today for a 1 month follow-up. She feels like the increased dose of Latuda has been successful, and she feels better, but she is still experiencing moodiness and feels like she could still benefit from an increased dosage. She was weaned off the Zoloft last visit, which she says has been successful. She is reporting thatshe feels like her anxiety is much better since stopping the Zoloft. Continues to get good sleep with the use of Seroquel nightly. She also shares that she and her partner are discussing having another child. She says that they have not come to a conclusion on this yet, but wanted to let me know in case we need to change her medications in the future pending a . Denies SI. Subjective Patient History: The following portions of the patient's history were reviewed and updated as appropriate: allergies, current medications, past family history, past medical history, past social history, past surgicalhistory and problem list. Medications: Current Outpatient Medications: albuterol sulfate HFA [...] a Day., Disp: 10.2 g, Rfl: 11 montelukast (Singulair) 10 MG tablet, Take 1 tablet by mouth Every Night., Disp: 30 tablet, Rfl: 11 ondansetron ODT (ZOFRAN-ODT) 4 MG disintegrating tablet, Place 1 tablet on the tongue and let dissolve Every 8 (Eight) Hours As Needed for Nausea or Vomiting., Disp: 20 tablet, Rfl: 0 phentermine 37.5 MG capsule, Take 1 capsule by mouth Every Morning., Disp: 30 capsule, Rfl: 0 QUEtiapine (SEROquel) 100 MG tablet, Take 1 [...] a Day., Disp: 60 g, Rfl: 1 lurasidone HCl (LATUDA) 60 MG tablet tablet, Take 1 tablet by mouth Daily. Take with food., Disp: 30 tablet, Rfl: 1 pantoprazole (PROTONIX) 20 MG EC tablet, Take 1 tablet by mouth Daily., Disp: 30 tablet, Rfl: 1 Objective Physical Exam: Vital Signs: Vitals: 07/11/25 0931 BP: 120/82 Pulse: 76 SpO2: 98% Weight: 94.3 kg (208 lb) Comment: Simultaneous filing. User may be unaware of other data. Height: 161.9 cm (63.75 ) Comment: Simultaneous filing. User may be unaware of other data. Body mass index is 35.98 kg/m??. Mental Status Exam: Hygiene: good Cooperation: Cooperative Eye Contact: Good Psychomotor Behavior: Appropriate Affect: Appropriate Mood: normal Speech: Normal Thought Process: Goal directed and Linear Thought Content: Normal Suicidal: None Homicidal: None Hallucinations: None Delusion: None Memory: Intact Orientation: Person, Place, Time, and Situation Reliability: good Insight: Good Judgement: Good Impulse Control: Good Physical/Medical Issues: No Assessment / Plan Visit Diagnosis/Orders Placed This Visit: Diagnoses and all orders for this visit: 1. Bipolar 2 disorder, major depressive episode (Primary) - lurasidone HCl (LATUDA) 60 MG tablet tablet; Take 1 tablet by mouth Daily. Take with food. Dispense: 30 tablet; Refill: 1 2. Generalized anxiety disorder Plan: Safety: No acute safety concerns Risk Assessment: Risk of self-harm acutely is low. Risk of self-harm chronically is also low, but could be further elevated in the event of treatment noncompliance. Increase Latuda to 60 mg due to partial response from the previous dosage. Continue Seroquel 100 mg nightly for sleep. If the patient does end up becoming I told her that we can discuss our plan at that time. Currently, she believes it would be best to stop all of her medications if she were to pursue . I will follow up with the patient in 1 month to assess how she is doing. Continue supportive psychotherapy efforts and medications as indicated. Treatment and medication options discussed during today's visit. Patient ackowledged and verbally consented to continue with current treatment plan and was educated on the importance of compliance with treatment and follow-up ap pointments. Patient seems reasonably able to adhere to treatment plan. Discussed medication options and treatment plan of prescribed medication as well as the risks, benefits, and potential side effects. Patient is agreeable to call the office with any worsening of symptoms or onset of side effects. Patient is agreeable to call 911 or go to the nearest ER should they begin having SI/HI. Quality Measures: Never smoker Follow Up: Return in about 5 weeks (around 08/15/2025). Da Grimm APRN documented in this encounter Plan of Treatment Upcoming Encounters Date Type Department Care Team (Late st Contact Info) Description 08/10/2025 8:30 AM EDT Office Visit [facility] [address] [place] [address] [place] [address] Raul Najera MD [address] [place] [address] [place] [address] 08/15/2025 2:00 PM EDT Office Visit [facility] [address] [place] [place] [address] [place] [address] Da Grimm APRN [address] [place] [id number] documented as of this encounter Visit Diagnoses Diagnosis Bipolar 2 disorder, major depressive episode- Primary Generalized anxiety disorder documented in this encounter Care Teams Larriman Relationship Specialty Start Date End Date Raul aNjera MD [address] [place] [address] PCP - General Internal Medicine 09/13/21 documented as of this encounter
--- OUTSIDE RECORDS SUMMARY | 2025-08-07 15:01 | XMS_ITS | Encounter Summary ---
[facility] [address] [place] [address] Care Team Providers Care Mortgage Collector Name Role Phone Raul Najera MD Primary Care Provider Reason for Visit * Reason Comments Med Refill Encounter Details Date Type Department Care Team (Late st Contact Info) Description 07/11/2025 Refill [facility] [address] [place] [address] [place] [id number] Raul Najera MD [address] [place] [address] [place] [address] Nausea Social History Tobacco Use Types Packs/Day Years [...] on file documented as of this encounter Plan of Treatment Upcoming Encounters Date Type Department Care Team (Late st Contact Info) Description 08/10/2025 8:30 AM EDT Office Visit [facility] [address] [place] [address] [place] [phone] Raul Najera MD [address] [place] [address] [place] [address] 08/15/2025 2:00 PM EDT Office Visit [facility] [address] [place] [address] Da Grimm APRN [address] [place] [address] documented as of this encounter Visit Diagnoses Diagnosis Nausea Nausea alone documented in this encounter Care Teams Mortgage Collector Relationship Specialty Start Date End Date Raul Najera MD [address] [place] [address] PCP - General Internal Medicine 09/13/21 documented as of this encounter
--- OUTSIDE RECORDS SUMMARY | 2025-08-07 15:01 | XMS_ITS | Encounter Summary ---
[facility] [address] [place] [address] Care Team Providers Care Multifocal Button Inspector Name Role Phone Raul Najera MD Primary Care Provider [phone] Encounter Details Date Type Department Care Team (Latest Contact Info) Description 07/11/2025 Travel Social History Tobacco Use Types Packs/Day Years [...] Description 08/10/2025 8:30 AM EDT Office Visit [facility] [address] [place] [address] [place] [id number] Raul Najera MD [address] [place] [address] [place] [address] 08/15/2025 2:00 PM EDT Office Visit [facility] [address] [place] [address] [place] [phone] Da Grimm APRN [address] [place] [address] [place] [address] documented as of this encounter Visit Diagnoses Not on filedocumented in this encounter Care Teams Multifocal Button Inspector Relationship Specialty Start Date End Date Raul Najera MD [address] [place] [address] PCP - General Internal Medicine 09/13/21 documented as of this encounter
--- OUTSIDE RECORDS SUMMARY | 2025-08-07 15:01 | XMS_ITS | Clinical Summary ---
Author Organization [facility] Address [address] [place] [address] Care Team Providers Care Infant Nanny Name Role Phone Raul Dougherty MD Primary Care Provider [phone] Allergies No known active allergies Medications SUMAtriptan (Imitrex) 100 MG tabletIndications :Migraine without aura and without status migrainosus, not intractable Take one tablet at onset of headache. May repeat dose one time in 2 hours if headache not relieved. 15 tablet 5 025 Active fluticasone (Flovent HFA) 110 MCG/ACT inhalerIndication s:Moderate persistent asthma with acute exacerbation Inhale 1 puff 2 (Two) Times a Day. 10.2 g 11 025 Active albuterol sulfate HFA (Ventolin HFA) 108 (90 Base) MCG/ACT inhalerIndication s:Moderate persistent asthma with acute exacerbation Inhale 2 puffs Every 4 (Four) Hours As Needed for Wheezing. 18 g 2 025 Active montelukast (Singulair) 10 MG tabletIndications :Moderate persistent asthma with acute exacerbation Take 1 tablet by mouth Every Night. 30 tablet 11 025 Active Cholecalciferol 25 MCG (1000 UT) tablet Take 1 tablet by mouth Daily. Active triamcinolone (KENALOG) 0.1 % creamIndications: Allergic contact dermatitis due to metals Apply 1 Application topically to the appropriate area as directed 2 (Two) Times a Day. 60 g 1 025 Active fexofenadine (Neha Allergy) 180 MG tabletIndications :Seasonal allergic rhinitis due to pollen Take 1 tablet by mouth Daily. 90 tablet 025 Active fluticasone (FLONASE) 50 MCG/ACT nasal sprayIndications: Seasonal allergic rhinitis due to pollen Administer 2 sprays into the nostril(s) as directed by provider Daily. 9.9 g Active etonogestrel-ethi nyl estradiol (NUVARING) 0.12-0.015 MG/24HR vaginal ring Insert 1 each into the vagina Every 28 (Twenty-Eight) Days. Remove after 3 weeks of each 4-week cycle Active ondansetron ODT (ZOFRAN-ODT) 4 MG disintegrating tabletIndications :Enteritis Place 1 tablet on the tongue and let dissolve Every 8 (Eight) Hours As Needed for Nausea or Vomiting. 20 tablet Active QUEtiapine (SEROquel) 100 MG tabletIndications :Bipolar 2 disorder, major depressive episode Take 1 tablet by mouth Every Night. 90 tablet 1 Active phentermine 37.5 MG capsuleIndication s:Trochanteric bursitis of both hips,Chronic bilateral low back pain without sciatica Take 1 capsule by mouth Every Morning. 30 capsule 025 Active lurasidone HCl (LATUDA) 60 MG tablet tabletIndications :Bipolar 2 disorder, major depressive episode Take 1 tablet by mouth Daily. Take with food. 30 tablet 1 025 Active pantoprazole (PROTONIX) 20 MG EC tabletIndications :Nausea Take 1 tablet by mouth Daily. 30 tablet 1 025 Active pantoprazole (PROTONIX) 20 MG EC tabletIndications :Nausea Take 1 tablet by mouth Daily. 30 tablet 1 025 2024 Discontinued lurasidone (LATUDA) 40 MG tablet tabletIndications :Bipolar 2 disorder, major depressive episode Take 1 tablet by mouth Daily. Take with food. 30 tablet 1 025 2024 Discontinued(H istorical Med - Therapy completed) Active Problems Problem Noted Date Diagnosed Date Trochanteric bursitis of right hip 05/04/2025 Assessment & Plan (05/04/2025 12:44 PM EDT): Lifestyle limiting pain from right greater trochanteric bursitis, assess clinical response to intrabursal injection with lidocaine and Depo-Medrol 80 mg. Status post previous right trochanteric bursal injection approximately 2 years prior. May also use oral NSAIDs along with Tylenol. Moderate persistent asthma without complication 05/01/2025 Assessment & Plan (05/01/2025 3:26 PM EDT): 2 months ago was initiated on Singulair 10 mg nightly and Flovent 110 at 1 inhalation twice daily prophylaxis, having had a significant improvement in control of her asthma, only having a rare episode of dyspnea every week or so. Continue current regimen. Strep pharyngitis 04/10/2025 Assessment & Plan (04/10/2025 12:19 PM EDT): Patient Sting positive for strep pharyngitis in office today, negative for flu and COVID. Will treat with twice daily cephalexin at 500 mg for 10 days. We discussed [id number] lozenges and sprays as well as warm salt water gargle for analgesic effect. May also utilize ibuprofen or Tylenol. Patient has Zofran if her nausea and vomiting persist. She is advised she will need new toothbrush in 3 to 4 days. Work note given for today and tomorrow Enteritis 03/29/2025 Assessment & Plan (03/29/2025 8:38 AM EDT): Patient declines testing for COVID, flu or strep in office today, she feels as though it is likely a GI bug or food poisoning. We did perform urine test to err on the side of caution which was negative. No concerning acute abdominal findings on physical exam today, likely a viral related enteritis. Treat symptomatically with Zofran as directed. Advised continued rest, pushing fluids as tolerated. As she is able to advance her diet advise clear liquids, then bland soft foods before resuming full diet. Advise if no improvement Vitamin D deficiency 02/27/2025 Assessment & Plan (02/27/2025 7:41 PM EDT): Currently on supplement. Obtain screening level. Gastroesophageal reflux disease 02/27/2025 Assessment & Plan (02/27/2025 7:41 PM EDT): Fairly good control utilizing her pantoprazole 20 mg daily as needed. Allergic contact dermatitis due to metals 2024 Assessment & Plan (02/27/2025 7:40 PM EDT): Allergic response to metal in necklace, necklace removed several days ago with gradual improvement. Prescribed triamcinolone cream to use as needed. Screening for diabetes mellitus 02/27/2025 Trochanteric bursitis of left hip 02/27/2025 Assessment & Plan (06/06/2025 10:32 AM EDT): Patient with clinically lifestyle limiting pain secondary to left trochanteric bursitis, status post intrabursal steroid injection today with Depo-Medrol 80 mg and lidocaine. Patient tolerated procedure well with no immediate significant proved in her pain. Patient advised that she will have a temporary improvement of pain from the lidocaine, but anticipate in the next 1 to 2 days having more persistent improvement in her pain. May supplement with ibuprofen or equivalent. Advised if any concerns Assessment & Plan (02/27/2025 7:46 PM EDT): Classic clinical findings of a left-sided trochanteric bursitis. Previously had similar findings on the right that have responded to an intrabursal steroid injection. Will assess clinical response to prednisone prescribed today concomitantly for her asthma and allergies. If not clinically improving subsequently will then discuss targeted intrabursal injection. Moderate persistent asthma with acute exacerbati on 02/27/2025 Assessment & Plan (02/27/2025 7:48 PM EDT): Just last couple weeks having some increasing chest congestion cough. Objectively has some diminished airflow but no wheezing. Treat with prednisone, reinitiate Flovent 110 at 1 inhalation twice daily rinsing mouth after each use, and Singulair 10 mg nightly along with her albuterol as needed. Assess clinic response in 2 months. Nausea 01/23/2025 Assessment & Plan (01/23/2025 12:34 PM EST): Vague nausea for the last month and a half, no specific trigger such as eating, no related obvious heartburn, dysphagia, lower GI or urinary complaints. Minimal epigastric tenderness on exam. Initiate trial of pantoprazole 20 mg daily, reassess in clinic response at her complete physical the end of next month. Will assess whether or not she would benefit any further testing including gallbladder ultrasound at that time, noting not pursuing today given overall benign history with no relationship to eating and overall benign exam Atypical chest pain 01/23/2025 Assessment & Plan (01/23/2025 12:32 PM EST): Describes for the last couple weeks having some vague diffuse chest discomfort anteriorly with no associated symptoms of dyspnea, related nausea or vomiting, diaphoresis or dizziness. Her exam does reveal some mild tenderness along the sternal costal margin bilaterally but she does not feel this represents the chest described no clear relationship to eating, though she does have some vague nausea intermittently. Tested negative for serum test last week by gynecology and does have an IUD in place. EKG today completely normal. Low risk for cardiovascular disease. Plan initiate trial of pantoprazole 20 mg daily, noting low bioavailability and breastmilk (patient breast-feeding). If symptoms not improving and certainly if worsen especially in context with eating we will then consider gallbladder ultrasound. Assess clinical response at her complete physical next month. Very clinically stable at time of office discharge. Anxiety in , antepartum 10/03/2024 Depression affecting 10/03/2024 Gastritis 10/03/2024 GBS bacteriuria 10/03/2024 Overview (10/03/2024): Urine ID + GBS on 03/11/24 She will need abx in labor regardless of RV swab History of migraine headaches 10/03/2024 Assessment & Plan (05/01/2025 3:24 PM EDT): Has been doing well at this time with only rare headaches, currently utilizing Imitrex along with concomitant Tylenol and NSAIDs on a as needed basis. Does not require suppressive therapy at this time. UTI (urinary tract infection ) in in third trimester 10/03/2024 Migraine without aura and wi thout status migrainosus, not intractable 10/03/2024 Assessment & Plan (02/27/2025 7:47 PM EDT): Long standing history of migraine headaches, occurring now several times weekly, specific etiology uncertain but could be related to hormonal changes with recent reduction in her IUD, versus stress, versus other. Not getting significant clinical response taking Imitrex 50 mg p.o. as needed. Increase Imitrex up to 100 mg daily, assessing clinical response, consideration of initiating migraine prophylaxis in the future including Topamax which would also benefit her weight though potentially affect her mental health diagnoses, versus other. Reassess this at her follow-up visit in 2 months. Assessment & Plan (10/03/2024 11:47 AM EST): Longstanding history of migraine headaches sporadically, having been headache free during her recent , but since she delivered her child 2 weeks ago having developed now at least twice weekly headaches of varying severity and duration, typically diffuse, associated with photo and phonophobia but no nausea, no preceding aura. Prior to her recent , she had good clinical results aborting her headaches with sumatriptan. She also in conjunction with her migraine headaches has had a recurrence of her anxiety and depression which is being addressed with initiation of sertraline as detailed above, with the mood disorder likely contributing to the severity and frequency of the headaches. Will reinitiate sumatriptan 50 mg p.o. to take at onset of headache in conjunction with Tylenol or ibuprofen, repeating same dose in 2 hours as needed, maximum 2 doses per 24 hours, noting low bioavailability of metabolites in breastmilk with patient definitely breast-feeding, assessing also clinical response regarding frequency and severity of headaches treating her mood disorder with sertraline. Reassess clinical response in 6 weeks. Mild obesity 02/26/2024 Assessment & Plan (11/14/2024 6:43 PM EST): Patient recently completed , having prior longstanding struggles with her weight. We discussed need to reinitiate healthy diet with portion control and healthy food choices along with initiation of regular physical activity. Assess clinical response and consider adjunct of weight loss medication once she is no longer breast-feeding. Assess at her complete physical on 02/28/2024. Assessment & Plan (02/26/2024 3:44 PM EDT): Patient has chronically struggled with obesity, having had multiple counseling sessions regarding need to pursue healthy diet and regular exercise. She is currently in her first trimester of her , thus I have advised her to be more concerned about pursuing a healthy diet, and attempting to avoid excessive weight gain during her . Once she completes her we will then address her weight at that time. Intrauterine 02/26/2024 Assessment & Plan (02/26/2024 3:40 PM EDT): Patient reports currently 10.2 weeks , intrauterine, followed by Dr. Burnett of obstetrics and [facility]. Taking multivitamin. Given , per up-to-date recommendation, will have her taper off her BuSpar over the next several days, but will continue her fluoxetine 40 mg daily for mood maintenance. Getting regular lab testing through obstetrics thus will defer testing through this office at this time. Encounter for general adult medical examination with abnormal findings 02/26/2024 Assessment & Plan (02/27/2025 7:42 PM EDT): 29-year-old female presenting for complete physical, with specific health issues addressed as detailed below, health maintenance includes EKG from 01/23/2025 normal not repeated today, Pap smear reported normal mid 01/2025, updating screening labs. Follow-up in 2 months to reassess her clinical response regarding her left-sided trochanteric bursitis, asthma, and her obesity. Assessment & Plan (02/26/2024 3:41 PM EDT): 28-year-old female presenting for complete physical, currently 10.2 weeks with intrauterine , no problems reported thus far followed by Dr. Burnett of obstetrics and [facility], health issues as been addressed below, recommend vaccinations up-to-date other than advised patient to discuss getting COVID-19 vaccine with her senior php developer, deferring any lab testing as routinely performed by senior php developer at this time, noting she did have CBC CMP and viral respiratory profile all unremarkable during ER visit in 12/2023. Bilateral hearing loss 02/26/2024 Assessment & Plan (02/26/2024 3:58 PM EDT): Patient describes subjective bilateral hearing deficit. Refer to audiology. Influenza B 12/16/2023 Assessment & Plan (12/16/2023 3:41 PM EST): presents today for complaints of sore throat, vomiting, earache, cough, nasal congestion, myalgia and headache. Patient states her symptoms have been present for approximately 3 days, with onset of abdominal pain and vomiting this morning. 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 She has not utilized any [id number] medications. She has taken her migraine medication, sumatriptan without any benefit. She has maintained adequate hydration with good urinary output. Patient denies any fever or chills. He has been exposed to influenza in the home as well -Testing positive for influenza B in office today, negative for strep, influenza A and COVID. Discussed proper symptom management. Will provide cough and decongestant in the form of Bromfed. Will also provide prescription for Zofran to address nausea. She may utilize [id number] antidiarrheal as indicated. Advised plenty of rest and fluids. May also treat headache with ibuprofen or Tylenol. Mass of upper inner quadrant of right breast 02/2024 Assessment & Plan (12/03/2023 8:10 AM EST): presents today after finding a lump in her right breast. Patient states approximately 3 weeks ago she felt a tender, firm knot on her breast. The tenderness has subsided, she feels the knot has somewhat decreased in size since she originally discovered it. No associated fever, redness or warmth. No change in nipple color, shape, no nipple discharge. She denies any recent fever or nausea. She does have family history of breast cancer in a paternal grandmother. She has never required early screening through mammogram or ultrasound.On physical exam, firm, nodular type mass palpated on inner, upper quadrant of right breast. -Will send for US of right breast Chronic bilateral low back pain without sciatica 09/22/2023 Assessment & Plan (06/29/2025 12:18 PM EDT): Chronic intermittent back pain in the lumbar region, getting weekly chiropractic manipulation with transient improvement, no sciatic symptoms, obtain lumbar x- ray and refer to orthopedic surgery. Frequent headaches 09/22/2023 Need for HPV vaccination 09/22/2023 Influenza vaccination administered at current vi sit 09/22/2023 Need for prophylactic vaccin ation against Streptococcus pneumoniae (pneumococcus) 06/23/2023 Mild persistent asthma with exacerbation 023 Allergic rhinitis 07/11/2022 Assessment & Plan (05/29/2025 9:38 AM EDT): Acute flare of allergic rhinitis both seasonally as well as due to recent exposure to multiple cats, taking enough Exidine 180 mg daily, Flonase, and montelukast 10 mg daily. Symptoms overall relatively mild, not warranting at this time oral steroid. Advised if not improving Assessment & Plan (04/10/2025 12:18 PM EDT): Patient states she is using the loratadine for seasonal allergies for a prolonged period of time, given ability to build up tolerance will discontinue Claritin and initiate Neha daily. Her nightly Singulair as well as daily Flonase. Will follow-up with Dr. Dougherty if no improve Assessment & Plan (02/27/2025 7:40 PM EDT): Prescribing prednisone burst for multiple reasons, along with reinitiation of her Singulair and loratadine. Advise if not improving Assessment & Plan (11/14/2024 6:38 PM EST): Patient previously took loratadine 10 mg daily which she is no longer utilizing, noting she is breast-feeding. We discussed that loratadine is considered to be safe medication in her breast-feeding mother, thus will reinitiate same. She previously had been on Flonase and Singulair which we will hold off prescribing at this time unless she has active symptoms. Assessment & Plan (02/26/2024 3:45 PM EDT): Patient currently taking loratadine 10 mg daily as needed, no longer on her Singulair or Flonase. Maintaining good control at this time. Advise if any significant decline. Asthma, mild 07/11/2022 Assessment & Plan (02/26/2024 3:45 PM EDT): Currently has not been having any asthma symptoms having discontinued her previous Singulair and Flovent prophylaxis. Does have an albuterol inhaler to use as needed. Advise if develops any significant flareup of her asthma. Generalized anxiety disorder 07/11/2022 Assessment & Plan (05/01/2025 3:22 PM EDT): Longstanding mental health problems including anxiety and bipolar depression, having established with [facility] psychiatry provider currently taking regimen of sertraline 100 mg daily and Seroquel 100 mg nightly, indicates she still has problems with anxiousness lack of energy and fatigue. She is to follow-up with her psychiatric provider tomorrow. Assessment & Plan (02/27/2025 7:45 PM EDT): Longstanding history of mental health problems including anxiety, and bipolar depression, having had fair control taking sertraline 100 mg daily and Seroquel 100 mg at 0.5 tablets, with increase in sedation with higher dose of Seroquel 1 tablet or 100 mg nightly. Subsequently was referred to local psychiatric provider who recently prescribed her Lamictal 25 mg nightly with plan to increase to 50 mg nightly after 2 weeks, patient subsequently stopping the Lamictal after 2 doses given perception that her irritability was worsened. She is scheduled follow-up with psychiatry later this month to discuss other options. I have encouraged patient to increase the Seroquel up to a whole tablet 100 mg nightly in the interim as tolerated Assessment & Plan (02/23/2025 8:21 AM EDT): >>ASSESSMENT AND PLAN FOR ANXIETY WRITTEN ON 10/03/2024 11:44 AM BY RAUL DOUGHERTY MD Patient with recurrence of generalized anxiety disorder in conjunction with her depression, having not taking any mood altering medications during her recent which were stopped by patient on her own, prior to her depression having been on fluoxetine and BuSpar. She has had recurrence of her mood disorder since delivering her child 2 weeks ago. She is breast-feeding, and given concern about potential secretion of antidepressant medications in breastmilk, we have agreed to initiate in place of previously prescribed fluoxetine now sertraline 50 mg taking 0.5 tablets or 25 mg daily x 6 days then increase to 1 tablet or 50 mg daily, noting sertraline has less bioavailability through breastmilk to the then does the fluoxetine. Reassess clinical response in 6 weeks, noting this. If delayed onset and benefit with early potential onset and side effects. Advise if problems in the interim. Assessment & Plan (02/23/2025 8:21 AM EDT): >>ASSESSMENT AND PLAN FOR ANXIETY WRITTEN ON 11/14/2024 6:42 PM BY RAUL DOUGHERTY MD Patient longstanding history of anxiety and depression, having not taking any mood altering medications during her recent which were stopped by patient on her own, prior to her depression having been on fluoxetine and BuSpar. She has had recurrence of her mood disorder since delivering her child in late 08/2024 after having completion of her . At her office visit on 10/03/2024, noting she is breast-feeding, and given concern about potential secretion of antidepressant medications in breastmilk, we initiated sertraline [address] of previously prescribed fluoxetine given lower bioavailability of this drug to infant through breastmilk. She reports significant improvement in both her anxiety and depression on sertraline with no major side effects. She is pleased with her progress, thus we will continue her current regimen. Reassess at her [facility] physical on 02/27/2025. Assessment & Plan (02/23/2025 8:21 AM EDT): >>ASSESSMENT AND PLAN FOR ANXIETY WRITTEN ON 01/23/2025 12:35 PM BY RAUL DOUGHERTY MD Patient has longstanding history of anxiety depression with anger outbursts and irritability consistent with bipolar disorder type II with depression. Does not use tobacco alcohol or illicit drugs. Most recently 2 months ago was started on sertraline 50 mg daily, this choice given she is actively breast-feeding with low bioavailability and breastmilk. She notes initially she felt like her moods are much better but several weeks ago started having recurrent irritability anger and aggression prompting her to discontinue her sertraline several weeks ago. She really does not feel any better with the symptoms and in fact feels like she is a little bit worse. Denies any SI/HI but does in the past notes she had cut herself to relieve some of her discomfort. Has not done so and has no interest in doing so but does feel like this could help. Plan reinitiate sertraline 50 mg initially 0.5 tablets daily for 4 days then increase to 1 tablet of 50 mg daily given she did have some initial benefit previously, while adding Seroquel 100 mg at 0.5 tablets or 50 mg nightly x 4 days then increase to 1 tablet to 100 mg nightly, discussing potential side effects from this choice of an atypical antipsychotic given low bioavailability and breastmilk. Arrange for nurse practitioner psychiatry consultation. Patient notes that she already has an established counselor with whom she feels comfortable discussing her issues. Clinically stable at time of office discharge. Assessment & Plan (02/26/2024 3:43 PM EDT): Reports generally having good control taking fluoxetine 40 mg daily and BuSpar 10 mg twice daily. She had stopped the medication for 4 months upon advice of her pharmacist given her , senior php developer a couple weeks reportedly advising her to restart both medications. Per my chart review through up-to-date website, recommendation preferably not to use BuSpar, thus I have asked her to taper down the BuSpar over the next week, but will continue fluoxetine which appears to be generally considered safe during . Advise if any significant decline in her mood control Insomnia due to medical condition 07/11/2022 Assessment & Plan (05/01/2025 3:25 PM EDT): Relates a history of insomnia compounding her anxiety and bipolar depression, noting her insomnia is improved using the Seroquel 100 mg nightly prescribed concomitantly for these other diagnoses. 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 She is to follow-up with her psychiatric provider tomorrow. Assessment & Plan (03/23/2025 8:15 AM EDT): >>ASSESSMENT AND PLAN FOR RECURRENT MAJOR DEPRESSIVE DISORDER, IN PARTIAL REMISSION WRITTEN ON 02/23/2025 8:22 AM BY DA OBSORN APRN >>ASSESSMENT AND PLAN FOR RECURRENT MAJOR DEPRESSIVE DISORDER, IN FULL REMISSION WRITTEN ON 02/26/2024 3:42 PM BY RAUL DOUGHERTY MD Reports generally having good control taking fluoxetine 40 mg daily and BuSpar 10 mg twice daily. She had stopped the medication for 4 months upon advice of her pharmacist given her , senior php developer a couple weeks reportedly advising her to restart both medications. Per my chart review through up-to-date website, recommendation preferably not to use BuSpar, thus I have asked her to taper down the BuSpar over the next week, but will continue fluoxetine which appears to be generally considered safe during . Advise if any significant decline in her mood control Assessment & Plan (03/23/2025 8:15 AM EDT): >>ASSESSMENT AND PLAN FOR RECURRENT MAJOR DEPRESSIVE DISORDER, IN PARTIAL REMISSION WRITTEN ON 02/23/2025 8:21 AM BY DA OSBORN APRN >>ASSESSMENT AND PLAN FOR MODERATE EPISODE OF RECURRENT MAJOR DEPRESSIVE DISORDER WRITTEN ON 10/03/2024 11:44 AM BY RAUL DOUGHERTY MD Patient with recurrence of generalized anxiety disorder in conjunction with her depression, having not taking any mood altering medications during her recent which were stopped by patient on her own, prior to her depression having been on fluoxetine and BuSpar. She has had recurrence of her mood disorder since delivering her child 2 weeks ago. She is breast-feeding, and given concern about potential secretion of antidepressant medications in breastmilk, we have agreed to initiate in place of previously prescribed fluoxetine now sertraline 50 mg taking 0.5 tablets or 25 mg daily x 6 days then increase to 1 tablet or 50 mg daily, noting sertraline has less bioavailability through breastmilk to the then does the fluoxetine. Reassess clinical response in 6 weeks, noting this. If delayed onset and benefit with early potential onset and side effects. Advise if problems in the interim. Assessment & Plan (03/23/2025 8:15 AM EDT): >>ASSESSMENT AND PLAN FOR RECURRENT MAJOR DEPRESSIVE DISORDER, IN PARTIAL REMISSION WRITTEN ON 02/23/2025 8:22 AM BY DA OSBORN APRN >>ASSESSMENT AND PLAN FOR RECURRENT MAJOR DEPRESSIVE DISORDER, IN FULL REMISSION WRITTEN ON 11/14/2024 6:42 PM BY RAUL DOUGHERTY MD Patient longstanding history of anxiety and depression, having not taking any mood altering medications during her recent which were stopped by patient on her own, prior to her depression having been on fluoxetine and BuSpar. She has had recurrence of her mood disorder since delivering her child in late 08/2024 after having completion of her . At her office visit on 10/03/2024, noting she is breast-feeding, and given concern about potential secretion of antidepressant medications in breastmilk, we initiated sertraline [address] of previously prescribed fluoxetine given lower bioavailability of this drug to infant through breastmilk. She reports significant improvement in both her anxiety and depression on sertraline with no major side effects. She is pleased with her progress, thus we will continue her current regimen. Reassess at her [facility] physical on 02/27/2025. Assessment & Plan (02/27/2025 7:45 PM EDT): Longstanding history of mental health problems including anxiety, and bipolar depression, having had fair control taking sertraline 100 mg daily and Seroquel 100 mg at 0.5 tablets, with increase in sedation with higher dose of Seroquel 1 tablet or 100 mg nightly. Subsequently was referred to local psychiatric provider who recently prescribed her Lamictal 25 mg nightly with plan to increase to 50 mg nightly after 2 weeks, patient subsequently stopping the Lamictal after 2 doses given perception that her irritability was worsened. She is scheduled follow-up with psychiatry later this month to discuss other options. I have encouraged patient to increase the Seroquel up to a whole tablet 100 mg nightly in the interim as tolerated Assessment & Plan (03/23/2025 8:15 AM EDT): >>ASSESSMENT AND PLAN FOR BIPOLAR 2 DISORDER, MAJOR DEPRESSIVE EPISODE WRITTEN ON 01/23/2025 12:34 PM BY RAUL DOUGHERTY MD Patient has longstanding history of anxiety depression with anger outbursts and irritability consistent with bipolar disorder type II with depression. Does not use tobacco alcohol or illicit drugs. Most recently 2 months ago was started on sertraline 50 mg daily, this choice given she is actively breast-feeding with low bioavailability and breastmilk. She notes initially she felt like her moods are much better but several weeks ago started having recurrent irritability anger and aggression prompting her to discontinue her sertraline several weeks ago. She really does not feel any better with the symptoms and in fact feels like she is a little bit worse. Denies any SI/HI but does in the past notes she had cut herself to relieve some of her discomfort. Has not done so and has no interest in doing so but does feel like this could help. Plan reinitiate sertraline 50 mg initially 0.5 tablets daily for 4 days then increase to 1 tablet of 50 mg daily given she did have some initial benefit previously, while adding Seroquel 100 mg at 0.5 tablets or 50 mg nightly x 4 days then increase to 1 tablet to 100 mg nightly, discussing potential side effects from this choice of an atypical antipsychotic given low bioavailability and breastmilk. Arrange for nurse practitioner psychiatry consultation. Patient notes that she already has an established counselor with whom she feels comfortable discussing her issues. Clinically stable at time of office discharge >>ASSESSMENT AND PLAN FOR RECURRENT MAJOR DEPRESSIVE DISORDER, IN PARTIAL REMISSION WRITTEN ON 02/23/2025 8:21 AM BY DA OSBORN APRN >>ASSESSMENT AND PLAN FOR MODERATE EPISODE OF RECURRENT MAJOR DEPRESSIVE DISORDER WRITTEN ON 01/23/2025 12:35 PM BY RAUL DOUGHERTY MD Patient has longstanding history of anxiety depression with anger outbursts and irritability consistent with bipolar disorder type II with depression. Does not use tobacco alcohol or illicit drugs. Most recently 2 months ago was started on sertraline 50 mg daily, this choice given she is actively breast-feeding with low bioavailability and breastmilk. She notes initially she felt like her moods are much better but several weeks ago started having recurrent irritability anger and aggression prompting her to discontinue her sertraline several weeks ago. She really does not feel any better with the symptoms and in fact feels like she is a little bit worse. Denies any SI/HI but does in the past notes she had cut herself to relieve some of her discomfort. Has not done so and has no interest in doing so but does feel like this could help. Plan reinitiate sertraline 50 mg initially 0.5 tablets daily for 4 days then increase to 1 tablet of 50 mg daily given she did have some initial benefit previously, while adding Seroquel 100 mg at 0.5 tablets or 50 mg nightly x 4 days then increase to 1 tablet to 100 mg nightly, discussing potential side effects from this choice of an atypical antipsychotic given low bioavailability and breastmilk. Arrange for nurse practitioner psychiatry consultation. Patient notes that she already has an established counselor with whom she feels comfortable discussing her issues. Clinically stable at time of office discharge. 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 We discussed the need to improve these parameters. Patient also an excellent candidate for a GLP-1 agonist but cannot afford, thus has been prescribed phentermine [...] daily). Advise if problems in the interim. Assessment & Plan (05/29/2025 9:39 AM EDT): Longstanding struggle with obesity, unfortunately not pursuing a healthy lifestyle with diet or exercise. We discussed the need to improve these parameters. Patient also an excellent candidate for a GLP-1 agonist but cannot afford, thus we discussed other options both started on phentermine 15 mg daily, having had a 4 pound weight loss as a satisfactory clinical response over the last month with no significant side effects. She does have portion size reduction in foods and has improved her diet both with foods and drinks. Acknowledges she does need to increase her exercise with some limitation last month given significant heat wave. We have agreed to continue her phentermine 15 mg daily, continue improving further lifestyle changes, and reassess clinically in another month. [place] option ultimately to add Topamax if cleared with her psychiatry provider if and when phentermine no longer is benefiting her as monotherapy. 1 month follow-up visit. Assessment & Plan (05/01/2025 3:21 PM EDT): Longstanding struggle with obesity, unfortunately not pursuing a healthy lifestyle with diet or exercise. We discussed the need to improve these parameters. Patient also an excellent candidate for a GLP-1 agonist but cannot afford, thus we discussed other options and will initiate trial of phentermine 15 mg daily, side effect profile potential discussed, plan to follow-up in 1 month with further adjustment in medication regimen as needed at that time. We also discussed the possibility of adding Topamax at some point to augment her efforts at weight loss, this option assuming that she would get approval from her psychiatric prescriber. Follow-up in 1 month for review. Assessment & Plan (02/27/2025 7:41 PM EDT): Discussed need for improving her diet and exercise in order to facilitate weight loss. If this is not successful then can discuss other options including GLP-1 agonist if affordable, phentermine and Topamax Trochanteric bursitis of both hips 07/11/2022 Assessment & Plan (06/29/2025 12:19 PM EDT): Persistence of bilateral greater than anterior hip pain, clinical picture most consistent with trochanteric bursitis. Previous transient improvement with oral prednisone, right sided trochanteric bursal injection on 05/04/2025 and left sided injection on 06/06/2025, both causing minimal to modest transient improvement only. Obtain x-rays of both hips and refer to orthopedic surgery Assessment & Plan (05/29/2025 9:41 AM EDT): Recurrent bilateral trochanteric bursitis, with left-sided bursitis having had transient relief of her pain with oral prednisone now 3 months ago, then subsequently more prominently noting right trochanteric bursitis with secondary intrabursal steroid injection several weeks ago, now having significant no not complete resolution of her pain. Her left hip is more problematic now. She will schedule a follow-up visit in the next several days at her convenience for purposes of administering a left trochanteric bursal injection. Use ibuprofen or equivalent in the interim. Assessment & Plan (05/01/2025 3:23 PM EDT): History of recurring bilateral trochanteric bursitis, most recently having complaint of left-sided bursitis getting transient relief with use of prednisone 2 months ago, now having recurrence of more prominent right greater than left trochanteric bursitis and related pain. Use ibuprofen or equivalent, and will schedule at her convenience appointment so that we may administer intrabursal steroid injections in both trochanteric bursae. Encounters Date Type Department Care Team Description 07/20/2025 Results Follow-Up [facility] [address] [place] [address] [place] [phone] Raul Dougherty MD 07/11/2025 9:30 AM EDT Office Visit [facility] [address] [place] [address] [place] [phone] Da Osborn APRN Bipolar 2 disorder, major depressive episode (Primary Dx); Generalized anxiety disorder 07/11/2025 Refill [facility] [address] [place] [address] [place] [phone] Raul Dougherty MD Nausea 07/11/2025 Travel 06/29/2025 10:15 AM EDT Office Visit [facility] [address] [place] [address] [place] [phone] Raul Dougherty MD Moderate obesity (Primary Dx); Trochanteric bursitis of both hips; Chronic bilateral low back pain without sciatica 06/29/2025 Travel 06/06/2025 10:15 AM EDT Office Visit [facility] [address] [place] [address] [place] [phone] Raul Dougherty MD Trochanteric bursitis of left hip (Primary Dx) 06/06/2025 9:00 AM EDT Office Visit [facility] [address] [place] [address] [place] [phone] Da Osborn APRN Bipolar 2 disorder, major depressive episode (Primary Dx); Generalized anxiety disorder 06/06/2025 Travel 06/05/2025 Refill [facility] [address] [place] [address] [place] [phone] Da Osborn APRN Bipolar 2 disorder, major depressive episode 05/29/2025 9:15 AM EDT Office Visit [facility] [address] [place] [address] [place] [phone] Raul Dougherty MD Moderate obesity (Primary Dx); Seasonal allergic rhinitis due to pollen; Trochanteric bursitis of both hips 05/29/2025 Travel from Last 3 Months Immunizations Immunization Administration Dates Next Due COVID-19 (PFIZER) 12YRS+ (COMIRNATY) 02/27/2025 Fluzone >6mos 10/03/2024 Fluzone (or Fluarix & Flulav al for VFC) >6mos 09/22/2023 Hpv9 09/22/2023,04/15/2023,12/23/2022 Influenza, Unspecified 12/13/2013 PPD Test 01/18/2019 Pneumococcal Conjugate 20-Valent (PCV20) 023 Tdap 06/28/2024,12/23/2022 Family History Medical History Relation Name Comments Bipolar disorder Cousin Gal Mahoney Anxiety disorder Father Mitul chapo 3 Depression Father Mitul chapo 3 Diabetes Father Mitul chapo 3 Hypertension Father Mitul chapo 3 Heart disease Maternal Grandfather Mitul chapo 2 Diabetes Maternal Grandmother Marjorie garcia Diabetes Mother Kristen chapo Hypertension Mother Kristen chapo Diabetes Paternal Grandfather Anson garcia Cancer Paternal Grandmother Justyna chapo Breast Diabetes Paternal Grandmother Justyna chapo borderl ine Relation Name Status Comments Cousin Gal Mahoney Alive Father Mitul chapo 3 Alive Maternal Grandfather Mitul chapo 2 Alive Maternal Grandmother Marjorie garcia Alive Mother Kristen chapo Alive Paternal Grandfather Anson garcia Alive Paternal Grandmother Justyna cowan Alive Social History Tobacco Use Types Packs/Day Years [...] on file Sexual Orientation Not on file Last Filed Vital Signs Vital Sign Reading Time Taken Comments Blood Pressure 120/82 07/11/2025 9:31 AM EDT Pulse 76 07/11/2025 9:31 AM EDT Temperature 36.7 C (98.1 F) 06/29/2025 10:02 AM EDT Respiratory Rate 18 05/01/2025 10:5 9 AM EDT Oxygen Saturation 98% 07/11/2025 9:3 1 AM EDT Inhaled Oxygen Concentration - - Weight 94.3 kg (208 lb) 07/11/2025 9:31 AM EDT Simultaneous filing. User may be unaware of other data. Height 161.9 cm (5' 3.75 ) 07/11/2025 9 :31 AM EDT Simultaneous filing. User may be unaware of other data. Body Mass Index 35.98 07/11/2025 9:31 AM EDT Plan of Treatment Upcoming Encounters Date Type Department Care Team (Late st Contact Info) Description 08/10/2025 8:30 AM EDT Office Visit [facility] [address] [place] [address] [place] [phone] Raul Dougherty MD [address] [place] [address] [place] [id number] 08/15/2025 2:00 PM EDT Office Visit [facility] [address] [place] [address] [place] [phone] Da Osborn APRN [address] [id number] Health Maintenance Due Date Last Done Comments Annual Gynecologic Pelvic an d Breast Exam 05/31/2022 05/30/2021 INFLUENZA VACCINE 08/30/2025 10/03/2024, , 12/13/2013 ANNUAL PHYSICAL 02/27/2026 02/27/2025, 02/26/2024 PAP SMEAR 02/12/2028 02/11/2025, 07/0 11/2020 (Patient-Reported (Performed Externally)) TDAP/TD VACCINES (3 - Td or Tdap) 06/28/2034 024, 12/23/2022 CHLAMYDIA SCREENING Discontinued 12/23/2022 HEPATITIS C SCREENING Completed 12/23/2022 Pneumococcal Vaccine 0-49 Completed 06/23/2023 COVID-19 Vaccine Completed 02/27/2025 Procedures Procedure Name Priority Date/Time Associated Diagnosis Comments SCANNED - IMAGING 07/20/2025 SCANNED - IMAGING 07/20/2025 SCANNED - IMAGING 07/20/2025 HC ARTHROCENTESIS MAJOR JOINT Routine 06/06/2025 10:19 AM EDT Trochanteric bursitis of left hip WI ARTHROCENTESIS ASPIR&/INJ MAJOR JT/BURSA W/O US Routine 06/06/2025 10:19 AM EDT Trochanteric bursitis of left hip CHLAMYDIA TRACHOMATIS, NEISSERIA GONORRHOEAE, PCR Routine 12/23/2022 1:55 PM EST Encounter for general adult medical examination with abnormal findings Screen for STD (sexually transmitted disease) HEPATITIS C ANTIBODY Routine 12/23/2022 1:55 PM EST Encounter for general adult medical examination with abnormal findings Screen for STD (sexually transmitted disease) Need for hepatitis C screening test from Last 3 Months or Most Recently Relevant to Health Maintenance Results * IMAGING SCANNED (07/20/2025) Only the most recent of3 resultswithin the time period is included. Anatomical Region Laterality Modality Radiographic Justine ging Raul Dougherty MD IMG DIAGNOSTIC IMAGING ORDERAB LES Final Result * WI ARTHROCENTESIS ASPIR&/INJ MAJOR JT/BURSA W/O US, HC ARTHROCENTESIS MAJOR JOINT (06/06/2025 10:19 AM EDT) Narrative Raul Dougherty MD - 06/06/2025 10:19 AM EDT Raul Dougherty MD 06/06/2025 9:22 PM Arthrocentesis Date/Time: 06/06/2025 10:19 AM Performed by: Raul Dougherty MD Authorized by: Raul Dougherty MD Indications: pain Body area: hip Joint: left hip Local anesthesia used: yes Anesthesia: local infiltration Anesthesia: Local anesthesia used: yes Local Anesthetic: lidocaine 1% without epinephrine Anesthetic total: 6 mL Sedation: Patient sedated: no Preparation: Patient was prepped and draped in the usual sterile fashion. Needle size: 22 G Ultrasound guidance: no Approach: lateral Aspirate amount: 0 mL Meds administered: 6 mL lidocaine PF 1% 1 %; 80 mg methylPREDNISolone acetate 40 MG/ML Patient tolerance: patient tolerated the procedure well with no immediate complications Raul Dougherty MD PROCEDURE/MINOR SURGICAL ORDER MONTRELL Final Result * Chlamydia trachomatis, Neisseria gonorrhoeae, PCR - Urine, Urine, Random Void (12/23/2022 1:55 PM EST) Chlamydia trachomatis, ANGELO Negative Negative [facility] Neisseria gonorrhoeae, ANGELO Negative Negative [facility] Urine Voided urine specimen / Unknown 12/23/2022 1:55 PM EST 12/24/2022 Comment:Urine Release to [facility] Narrative [facility] - 12/26/2022 6:06 AM EST Performed at: [address] [id number] Rating Specialist: Erika Newman MD, Phone: [phone] Raul Dougherty MD MICROBIOLOGY - GENERAL ORDERAB LES Final Result [facility] [address] [place] [address], [facility] [address] [place] [address], * Hepatitis C Antibody (12/23/2022 1:55 PM EST) Hep C Virus Ab <0.1 0.0 - 0.9 s/co ratio [facility] Comment: Negative: < 0.8 Indeterminate: 0.8 - 0.9 Positive: > 0.9 HCV antibody alone does not differentiate between previous resolved infection and active infection. The CDC and current clinical guidelines recommend that a positive HCV antibody result be followed up with an HCV RNA test to support the diagnosis of acute HCV infection. [facility] offers Hepatitis C Virus (HCV) RNA, Diagnosis, ANGELO ([id number]) and Hepatitis C Virus (HCV) Antibody with reflex to Quantitative Real-time PCR ([id number]). Blood Structure of right upper limb / Unknown 12/23/2022 1:55 PM EST 12/24/2022 Comment:Blood Release to dav Yan [facility] (AMBULATORY) - 12/24/2022 11:07 AM EST Performed at: [facility] [address] [place], [place] [id number] Rating Specialist: Amrit Luna PhD, Phone: [phone] us Raul Dougherty MD LAB BLOOD ORDERABLES Final Res ult [facility] [address] [place] [address], [facility] [address] [place] [address], from Last 3 Months or Most Recently Relevant to Health Maintenance Insurance [facility] [employer] [place] Care Teams Infant Nanny Relationship Specialty Start Date End Date Raul Dougherty MD [address] [place] [id number] PCP - General Internal Medicine 09/13/21
--- OUTSIDE RECORDS SUMMARY | 2025-08-07 15:01 | XMS_ITS | Encounter Summary ---
[facility] [address] [place] [address] Care Team Providers Care Concaver Name Role Phone Raul Najera MD Primary Care Provider [phone] Encounter Details Date Type Department Care Team (Latest Contact Info) Description 06/29/2025 Travel Social History Tobacco Use Types Packs/Day [...] Description 08/10/2025 8:30 AM EDT Office Visit [facility] [address] [place] [address] [place] [phone] Raul Najera MD [address] [place] [address] [place] [id number] 08/15/2025 2:00 PM EDT Office Visit [facility] [address] [place] [address] [place] [phone] Da Grimm APRN [address] [place] [address] [place] [address] documented as of this encounter Visit Diagnoses Not on filedocumented in this encounter Care Teams Concaver Relationship Specialty Start Date End Date Raul Najera MD [address] [place] [address] PCP - General Internal Medicine 09/13/21 documented as of this encounter
--- OUTSIDE RECORDS SUMMARY | 2025-08-07 15:01 | XMS_ITS | Encounter Summary ---
[facility] [address] [place] [id number] Care Team Providers Care Tree Wrapper Name Role Phone Raul Najera MD Primary Care Provider [phone] Encounter Details Date Type Department Care Team (Late Contact Info) Description 07/20/2025 Results Follow-Up [facility] [address] [place] [address] [place] [phone] Raul Najera MD [address] [place] [address] [place] [id number] Social History Tobacco Use Types Packs/Day Years [...] Encounters Date Type Department Care Team (Late Contact Info) Description 08/10/2025 8:30 AM EDT Office Visit [facility] [address] [place] [address] [place] [phone] Raul Najera MD [address] [place] [address] [place] [id number] 08/15/2025 2:00 PM EDT Office Visit [facility] [address] [place] [address] Da Grimm APRN [address] [place] [address] documented as of this encounter Visit Diagnoses Not on filedocumented in this encounter Care Teams Tree Wrapper Relationship Specialty Start Date End Date Raul Najera MD [address] [place] [address] PCP - General Internal Medicine 09/13/21 documented as of this encounter
== END 2025-08-07 23:59 | disposition home or self-care (01) ==
LOC: LAB 15:00
PROVIDERS: PCP Internal Medicine; Visit Provider Obstetrics & Gynecology
DX: Z34.90 Encounter for supervision of normal pregnancy, unspecified, unspecified trimester (principal)
CPT/HCPCS: 36415; 84144; 84702

== ENCOUNTER 2025-08-14 09:42 | Outpatient (CLI) | payer OTHER, SELFPAY ==
--- OUTSIDE RECORDS SUMMARY | 2025-06-29 10:15 | XMS_ITS | Encounter Summary ---
Author Organization [facility] Address [address] [place] [address] Care Team Providers Care Caramel Candy Maker Helper Name Role Phone Raul Najera MD Primary Care Provider [phone] Reason for Referral * Consultation (Routine) - Closed Specialty Diagnoses / Procedures Referred By Contac t Referred To Contact Orthopedic Surgery Diagnoses Trochanteric bursitis of both hips Chronic bilateral low back pain without sciatica Raul Najera MD [address] [place] [address] [place] [address] Phone: tel: fax: Misha Angela MD 113[address] [facility] [address] [place] [address] Phone: tel: fax: Referral ID Status Reason [...] - 3 View Right Raul Najera MD [address] [place] [address] [place] [address] Phone: tel: fax: Referral ID Status Reason Start Date Expiration Date V isits Requested Visits Authorized [id number] Authorized 06/29/2025 09/28/2026 1 1 * Diagnostic Imaging (Routine) - Authorized Specialty Diagnoses / Procedures Referred By Contac t Referred To Contact Diagnoses Trochanteric bursitis of both hips Chronic bilateral low back pain without sciatica Procedures XR Spine Lumbar 4+ View Raul Najera MD [address] [place] [address] Phone: tel: fax: Referral ID Status Reason Start Date Expiration Date V isits Requested Visits Authorized [id number] Authorized 06/29/2025 09/28/2026 1 1 * Diagnostic Imaging (Routine) - Authorized Specialty Diagnoses / Procedures Referred By Contac t Referred To Contact Diagnoses Trochanteric bursitis of both hips Chronic bilateral low back pain without sciatica Procedures XR Hip With or Without Pelvis 2 - 3 View Left Raul Najera MD [address] [place] [address] [place] [address] Phone: tel: fax: Referral ID Status Reason Start Date Expiration Date V isits Requested Visits Authorized [id number] Authorized 06/29/2025 09/28/2026 1 1 Reason for Visit * Reason Comments Weight Management Encounter Details Date Type Department Care Team (Late st Contact Info) Description 06/29/2025 10:15 AM EDT Office Visit [facility] [address] [place] [phone] Raul Najera MD [address] [place] [address] Moderate obesity (Primary Dx); Trochanteric bursitis of [...] 6 weeks (around 08/10/2025) for Recheck. At [facility], we believe that sharing information builds trust and better relationships. You are receiving this note because you recently visited [facility]. It is possible you will see health information before a provider has talked with you about it. This kind of information can be easy to misunderstand. To help you fully understand what it means for your health, we urge you to discussthis note with your provider. Raul Najera MD [facility] documented in this encounter Plan of Treatment Scheduled Orders Name Type Priority Associated Diagnoses [...] sciatica documented in this encounter Care Teams Caramel Candy Maker Helper Relationship Specialty Start Date End Date Raul Najera MD [address] [place] [address] PCP - General Internal Medicine 09/13/21 documented as of this encounter
--- OUTSIDE RECORDS SUMMARY | 2025-08-14 09:54 | XMS_ITS | Encounter Summary ---
[facility] [address] [place] [id number] Care Team Providers Care Wwe Wrestler Name Role Phone Raul Najera MD Primary Care Provider [phone] Encounter Details Date Type Department Care Team [...] as of this encounter Plan of Treatment Not on file documented as of this encounter Visit Diagnoses Not on filedocumented in this encounter Care Teams Wwe Wrestler Relationship Specialty Start Date End Date Raul Najera MD [address] [place] [address] [place] [address] PCP - General Internal Medicine 09/13/21 documented as of this encounter
--- OUTSIDE RECORDS SUMMARY | 2025-08-14 09:54 | XMS_ITS | Encounter Summary ---
[facility] Address [address] [place] [id number] Care Team Providers Care Ingot Weigher Name Role Phone Raul Najera MD Primary Care Provider [phone] Encounter Details Date Type Department Care Team [...] on filedocumented in this encounter Care Teams Ingot Weigher Relationship Specialty Start Date End Date Raul Najera MD [address] [place] [address] [place] [address] PCP - General Internal Medicine 09/13/21 documented as of this encounter
--- OUTSIDE RECORDS SUMMARY | 2025-08-14 09:54 | XMS_ITS | Clinical Summary ---
Author Organization [facility] Address [address] [place] [address] Care Team Providers Care Crib Attendant Name Role Phone Raul Dougherty MD Primary Care Provider [phone] Allergies No known active allergies Medications * This document contains information received from the source organization and may not represent a complete record from that organization. SUMAtriptan (Imitrex) 100 MG tabletIndications: Migraine without aura and without status migrainosus, not intractable Take one tablet at onset of headache. May repeat dose one time in 2 hours if headache not relieved. 15 tablet 5 02/28/20 25 Active fluticasone (Flovent HFA) 110 MCG/ACT inhalerIndications :Moderate persistent asthma with acute exacerbation Inhale 1 puff 2 (Two) Times a Day. 10.2 g 11 02/28/20 25 Active albuterol sulfate HFA (Ventolin HFA) 108 (90 Base) MCG/ACT inhalerIndications :Moderate persistent asthma with acute exacerbation Inhale 2 puffs Every 4 (Four) Hours As Needed for Wheezing. 18 g 2 02/28/20 25 Active montelukast (Singulair) 10 MG tabletIndications: Moderate persistent asthma with acute exacerbation Take 1 tablet by mouth Every Night. 30 tablet 11 02/28/20 25 Active Cholecalciferol 25 MCG (1000 UT) tablet Take 1 tablet by mouth Daily. Active triamcinolone (KENALOG) 0.1 % creamIndications:A llergic contact dermatitis due to metals Apply 1 Application topically to the appropriate area as directed 2 (Two) Times a Day. 60 g 1 04/24/20 25 Active fexofenadine (Neha Allergy) 180 MG tabletIndications: Seasonal allergic rhinitis due to pollen Take 1 tablet by mouth Daily. 90 tablet 04/10/20 25 Active fluticasone (FLONASE) 50 MCG/ACT nasal sprayIndications:S easonal allergic rhinitis due to pollen Administer 2 sprays into the nostril(s) as directed by provider Daily. 9.9 g 04/10/20 25 Active etonogestrel-ethin yl estradiol (NUVARING) 0.12-0.015 MG/24HR vaginal ring Insert 1 each into the vagina Every 28 (Twenty-Eight) Days. Remove after 3 weeks of each 4-week cycle 04/29/20 25 Active ondansetron ODT (ZOFRAN-ODT) 4 MG disintegrating tabletIndications: Enteritis Place 1 tablet on the tongue and let dissolve Every 8 (Eight) Hours As Needed for Nausea or Vomiting. 20 tablet 05/03/20 25 Active QUEtiapine (SEROquel) 100 MG tabletIndications: Bipolar 2 disorder, major depressive episode Take 1 tablet by mouth Every Night. 90 tablet 1 06/06/20 25 Active phentermine 37.5 MG capsuleIndications :Trochanteric bursitis of both hips,Chronic bilateral low back pain without sciatica Take 1 capsule by mouth Every Morning. 30 capsule 06/29/20 25 Active lurasidone HCl (LATUDA) 60 MG tablet tabletIndications: Bipolar 2 disorder, major depressive episode Take 1 tablet by mouth Daily. Take with food. 30 tablet 1 07/11/20 25 Active pantoprazole (PROTONIX) 20 MG EC tabletIndications: Nausea Take 1 tablet by mouth Daily. 30 tablet 1 07/11/20 25 Active Active Problems Problem Noted Date Diagnosed Date [...] 500 mg for 10 days. We discussed hnlv-xth-zetpalp lozenges and sprays as well as warm [...] followed by Dr. Burnett of obstetrics and Kristin. Taking multivitamin. Given , per up-to-date recommendation, [...] followed by Dr. Burnett of obstetrics and Kristin, health issues as been addressed below, recommend vaccinations up-to-date other than advised patient to discuss getting COVID-19 vaccine with her public policy coordinator, deferring any lab testing as routinely performed by public policy coordinator at this time, noting she did have [...] local daycare. She has not utilized any qedp-qcu-yfjiebl medications. She has taken her migraine medication, [...] Zofran to address nausea. She may utilize kuts-oey-ubovriw antidiarrheal as indicated. Advised plenty of rest [...] anxiety and bipolar depression, having established with [facility] psychiatry provider currently taking regimen of sertraline [...] has less bioavailability through breastmilk to the infant then does the fluoxetine. Reassess clinical response [...] continue her current regimen. Reassess at her [facility] physical on 02/27/2025. Assessment & Plan (02/23/2025 [...] advice of her pharmacist given her , public policy coordinator a couple weeks reportedly advising her to [...] anxiety and bipolar depression, having established with [facility] psychiatry provider currently taking regimen of sertraline 100 mg daily and Seroquel 100 mg nightly, indicates she still has problems with anxiousness lack of energy and fatigue. She is to follow-up with her psychiatric provider tomorrow. Assessment & Plan (03/23/2025 8:15 AM EDT): >>ASSESSMENT AND PLAN FOR RECURRENT MAJOR DEPRESSIVE DISORDER, IN PARTIAL REMISSION WRITTEN ON 02/23/2025 8:22 AM BY ONEAL OSBORN APRN >>ASSESSMENT AND PLAN FOR RECURRENT MAJOR DEPRESSIVE DISORDER, IN FULL REMISSION WRITTEN ON 02/26/2024 3:42 PM BY RAUL DOUGHERTY MD Reports generally having good control taking fluoxetine 40 mg daily and BuSpar 10 mg twice daily. She had stopped the medication for 4 months upon advice of her pharmacist given her , public policy coordinator a couple weeks reportedly advising her to [...] REMISSION WRITTEN ON 02/23/2025 8:21 AM BY ONEAL OSBORN APRN >>ASSESSMENT AND PLAN FOR MODERATE [...] REMISSION WRITTEN ON 02/23/2025 8:22 AM BY ONEAL OSBORN APRN >>ASSESSMENT AND PLAN FOR RECURRENT [...] given lower bioavailability of this drug to through breastmilk. She reports significant improvement in both her anxiety and depression on sertraline with no major side effects. She is pleased with her progress, thus we will continue her current regimen. Reassess at her [facility] physical on 02/27/2025. Assessment & Plan (02/27/2025 [...] REMISSION WRITTEN ON 02/23/2025 8:21 AM BY ONEAL OSBORN APRN >>ASSESSMENT AND PLAN FOR MODERATE [...] changes, and reassess clinically in another month. [place] option ultimately to add Topamax if cleared [...] steroid injections in both trochanteric bursae. Encounters * This document contains information received from the source organization and may not represent a complete record from that organization. Date Type Department Care Team Description 07/20/2025 Results Follow-Up [facility] [address] [place] [address] [place] [phone] Raul Dougherty MD 07/11/2025 Refill [facility] [address] [place] [address] [place] [phone] Raul Dougherty MD Nausea 07/11/2025 Travel 06/29/2025 10:15 AM EDT Office Visit [facility] [address] [place] [phone] Raul Dougherty MD Moderate obesity (Primary Dx); Trochanteric bursitis of both hips; Chronic bilateral low back pain without sciatica 06/29/2025 Travel 06/06/2025 10:15 AM EDT Office Visit [facility] [place] [phone] Raul Dougherty MD Trochanteric bursitis of left hip (Primary Dx) 06/06/2025 Travel 05/29/2025 9:15 AM EDT Office Visit [facility] [address] [place] [address] [place] [phone] Raul Dougherty MD Moderate obesity (Primary Dx); [...] Maternal Grandmother Marjorie garcia Diabetes Mother Kristen burnette Hypertension Mother Kristen cowan Diabetes Paternal Grandfather Anson garcia Cancer Paternal Grandmother Justyna chapo Breast Diabetes Paternal Grandmother Justyna chapo borderl ine Relation Name Status Comments Cousin Gal Mahoney Alive Father Mitul burnette 3 Alive Maternal Grandfather Mitul burnette 2 Alive Maternal Grandmother Marjorie garcia Alive Mother Kristen cowan Alive Paternal Grandfather Anson garcia Alive Paternal [...] 07/11/2025 9:31 AM EDT Plan of Treatment Health Maintenance Due Date Last Done Comments [...] Priority Date/Time Associated Diagnosis Comments SCANNED - LABS 08/07/2025 SCANNED - IMAGING 07/20/2025 SCANNED - IMAGING 07/20/2025 SCANNED - IMAGING 07/20/2025 HC ARTHROCENTESIS MAJOR JOINT Routine 06/06/2025 10:19 AM EDT Trochanteric bursitis of left hip [place] ARTHROCENTESIS ASPIR&/INJ MAJOR JT/BURSA W/O US Routine [...] Recently Relevant to Health Maintenance Results * LABS SCANNED (08/07/2025) Raul Dougherty MD LAB BLOOD ORDERABLES Final Res ult * IMAGING SCANNED (07/20/2025) Only the most recent of3 resultswithin the time period is included. Anatomical Region Laterality Modality Radiographic Justine ging Raul Dougherty MD IMG DIAGNOSTIC IMAGING ORDERAB LES Final Result * [place] ARTHROCENTESIS ASPIR&/INJ MAJOR JT/BURSA W/O US, HC [...] the procedure well with no immediate complications Result [facility] Raul Dougherty MD PROCEDURE/MINOR SURGICAL ORDER MONTRELL Final Result * Chlamydia trachomatis, Neisseria gonorrhoeae, PCR - Urine, Urine, Random Void (12/23/2022 1:55 PM EST) Chlamydia trachomatis, ANGELO Negative Negative [facility] Neisseria gonorrhoeae, ANGELO Negative Negative [facility] Urine Voided urine specimen / Unknown 12/23/2022 1:55 PM EST 12/24/2022 Comment:Urine Release to [facility] ([facility]) - 12/26/2022 6:06 AM EST Performed at: [address] [place] [address] [place] [id number] Share Dairy Farmer: Erika Newman MD, Phone: [phone] Raul Dougherty MD MICROBIOLOGY - GENERAL ORDERAB LES Final Result Performing Organization Address [facility] Co de Phone Number [facility] ([facility]) [address] [place] [address], [facility] [address] [place] [address], * Hepatitis C Antibody (12/23/2022 1:55 PM EST) Hep C Virus Ab <0.1 0.0 - 0.9 s/co ratio [facility] Comment: Negative: < 0.8 Indeterminate: 0.8 - 0.9 Positive: > 0.9 HCV antibody alone does not differentiate between previous resolved infection and active infection. The CDC and current clinical guidelines recommend that a positive HCV antibody result be followed up with an HCV RNA test to support the diagnosis of acute HCV infection. [facility] offers Hepatitis C Virus (HCV) RNA, Diagnosis, ANGELO (278275) and Hepatitis C Virus (HCV) Antibody with reflex to Quantitative Real-time PCR ([id number]). Blood Structure of right upper limb / Unknown 12/23/2022 1:55 PM EST 12/24/2022 Comment:Blood Release to [facility] ([facility]) - 12/24/2022 11:07 AM EST Performed at: [address] [place] [address] [place] [id number] Share Dairy Farmer: Amrit Luna PhD, Phone: [phone] us Raul Dougherty MD LAB BLOOD ORDERABLES Final Res ult Performing Organization Address City/[facility]/ZIP Co de Phone Number [facility] ([facility]) [address] [place] [address], [place] [phone] [facility] [address] [place] [address], from Last 3 Months or Most Recently Relevant to Health Maintenance Insurance [facility] Care Teams Crib Attendant Relationship Specialty Start Date End Date Raul Dougherty MD [address] [place] [address] PCP - General Internal Medicine 09/13/21
--- OUTSIDE RECORDS SUMMARY | 2025-08-14 09:54 | XMS_ITS | Encounter Summary ---
[facility] Address [address] [place] [address] Care Team Providers Care Pasteurizer Helper Name Role Phone Raul Najera MD Primary Care Provider [phone] Encounter Details Date Type Department Care Team (Late st Contact Info) Description 07/20/2025 Results Follow-Up [facility] [address] [place] [address] [place] [address] Raul Najera MD [address] [place] [address] [place] [address] Social History Tobacco Use Types Packs/Day Years [...] on filedocumented in this encounter Care Teams Pasteurizer Helper Relationship Specialty Start Date End Date Raul Najera MD [address] [place] [address] PCP - General Internal Medicine 09/13/21 documented as of this encounter
--- OUTSIDE RECORDS SUMMARY | 2025-08-14 09:54 | XMS_ITS | Encounter Summary ---
[facility] Address [address] [place] [address] Care Team Providers Care Holter Scanning Technician Name Role Phone Raul Najera MD Primary Care Provider Reason for Visit * Reason Comments Med Refill Encounter Details Date Type Department Care Team (Late st Contact Info) Description 07/11/2025 Refill [facility] [address] [place] [address] [place] [address] Raul Najera MD [address] [place] [address] [place] [address] Nausea Social History Tobacco Use Types [...] alone documented in this encounter Care Teams Holter Scanning Technician Relationship Specialty Start Date End Date Raul Najera MD [address] [place] [address] PCP - General Internal Medicine 09/13/21 documented as of this encounter
== END 2025-08-14 23:59 | disposition home or self-care (01) ==
LOC: LAB 09:42
PROVIDERS: PCP Internal Medicine; Visit Provider Obstetrics & Gynecology
DX: Z34.90 Encounter for supervision of normal pregnancy, unspecified, unspecified trimester (principal); N92.6 Irregular menstruation, unspecified; Z3A.00 Weeks of gestation of pregnancy not specified
CPT/HCPCS: 36415; 84702

== ENCOUNTER 2025-09-03 23:16 | Emergency (ER) | payer OTHER, SELFPAY ==
--- OUTSIDE RECORDS SUMMARY | 2025-09-03 23:22 | XMS_ITS | Clinical Summary ---
Author Organization [facility] Address [address] [place] [address] Care Team Providers Care Religious Activities Director Name Role Phone Raul Dougherty MD Primary Care Provider [phone] Allergies No known active allergies Medications * [...] 500 mg for 10 days. We discussed sfwd-ygk-jmryccx lozenges and sprays as well as warm [...] to discuss getting COVID-19 vaccine with her tire technician, deferring any lab testing as routinely performed by tire technician at this time, noting she did have [...] local daycare. She has not utilized any xvht-znp-nchmffd medications. She has taken her migraine medication, [...] Zofran to address nausea. She may utilize uqcj-pvr-jcnbkhj antidiarrheal as indicated. Advised plenty of rest [...] anxiety and bipolar depression, having established with [facility] psychiatry provider currently taking regimen of sertraline [...] continue her current regimen. Reassess at her [facility] physical on 02/27/2025. Assessment & Plan (02/23/2025 [...] advice of her pharmacist given her , tire technician a couple weeks reportedly advising her to [...] nightly prescribed concomitantly for these other diagnoses. [place]-Schlatter's disease 07/11/2022 Overview (07/11/2022): bilateral Bipolar 2 disorder, major depressive episode 10/2022 Assessment & Plan (05/01/2025 3:22 PM EDT): Longstanding mental health problems including anxiety and bipolar depression, having established with [facility] psychiatry provider currently taking regimen of sertraline [...] advice of her pharmacist given her , tire technician a couple weeks reportedly advising her to [...] continue her current regimen. Reassess at her [facility] physical on 02/27/2025. Assessment & Plan (02/27/2025 [...] changes, and reassess clinically in another month. [place] option ultimately to add Topamax if cleared [...] Department Care Team Description 07/20/2025 Results Follow-Up [facility] [address] [place] [address] [place] [phone] Raul Dougherty MD 07/11/2025 Refill [facility] [address] [place] [address] [place] [address] Raul Dougherty MD Nausea 07/11/2025 Travel 06/29/2025 10:15 AM EDT Office Visit [facility] [address] [place] [address] Raul Dougherty MD Moderate obesity (Primary Dx); Trochanteric bursitis of both hips; Chronic bilateral low back pain without sciatica 06/29/2025 Travel 06/06/2025 10:15 AM EDT Office Visit [facility] [address] [place] [address] [place] [address] Raul Dougherty MD Trochanteric bursitis of left hip (Primary Dx) 06/06/2025 Travel from Last 3 Months Immunizations Immunization [...] d Breast Exam 05/31/2022 05/30/2021 INFLUENZA VACCINE 06/30/2025 10/03/2024, , 12/13/2013 ANNUAL PHYSICAL 02/27/2026 02/27/2025, 02/26/2024 PAP SMEAR 02/12/2028 02/11/2025, 07/0 11/2020 (Patient-Reported (Performed Externally)) TDAP/TD VACCINES (3 - Td or Tdap) 06/28/2034 024, 12/23/2022 CHLAMYDIA SCREENING Discontinued 12/23/2022 HEPATITIS C SCREENING Completed 12/23/2022 Pneumococcal Vaccine 0-49 Completed 06/23/2023 Procedures Procedure Name Priority Date/Time Associated Diagnosis Comments SCANNED - LABS 08/14/2025 SCANNED - LABS 08/07/2025 SCANNED - IMAGING 07/20/2025 SCANNED - IMAGING 07/20/2025 SCANNED - IMAGING 07/20/2025 HC ARTHROCENTESIS MAJOR JOINT Routine 06/06/2025 10:19 AM EDT Trochanteric bursitis of left hip [place] ARTHROCENTESIS ASPIR&/INJ MAJOR JT/BURSA W/O US Routine [...] to Health Maintenance Results * LABS SCANNED (08/14/2025) Only the most recent of2 resultswithin the time period is included. Raul Dougherty MD LAB BLOOD ORDERABLES Final Res ult * IMAGING SCANNED (07/20/2025) Only the most recent of3 resultswithin the time period is included. Anatomical Region Laterality Modality Radiographic Justine ging Raul Dougherty MD IMG DIAGNOSTIC IMAGING ORDERAB LES Final Result * [place] ARTHROCENTESIS ASPIR&/INJ MAJOR JT/BURSA W/O US, HC [...] procedure well with no immediate complications Result [facility] Raul Dougherty MD PROCEDURE/MINOR SURGICAL ORDER MONTRELL Final Result * Chlamydia trachomatis, Neisseria gonorrhoeae, PCR - Urine, Urine, Random Void (12/23/2022 1:55 PM EST) Chlamydia trachomatis, ANGELO Negative Negative [facility] Neisseria gonorrhoeae, ANGELO Negative Negative [facility] Urine Voided urine specimen / Unknown 12/23/2022 1:55 PM EST 12/24/2022 Comment:Urine Release to [facility] ([facility]) - 12/26/2022 6:06 AM EST Performed at: - Lab[address] [place] [id number] Commanding Officer Motorized Squad: Erika Newman MD, Phone: [phone] Raul Dougherty MD MICROBIOLOGY - GENERAL ORDERAB LES Final Result Performing Organization Address [facility] de Phone Number [facility] (AMBULATORY) [address] [place] [address], [facility] [address] [place] [address], * Hepatitis C Antibody (12/23/2022 1:55 PM EST) Hep C Virus Ab <0.1 0.0 - 0.9 s/co ratio [facility] Comment: Negative: < 0.8 Indeterminate: 0.8 - 0.9 Positive: > 0.9 HCV antibody alone does not differentiate between previous resolved infection and active infection. The CDC and current clinical guidelines recommend that a positive HCV antibody result be followed up with an HCV RNA test to support the diagnosis of acute HCV infection. [facility] offers Hepatitis C Virus (HCV) RNA, Diagnosis, ANGELO (924099) and Hepatitis C Virus (HCV) Antibody with reflex to Quantitative Real-time PCR ([id number]). Blood Structure of right upper limb / Unknown 12/23/2022 1:55 PM EST 12/24/2022 Comment:Blood Release to [facility] [place] [facility] (AMBULATORY) - 12/24/2022 11:07 AM EST Performed at: - [address] [id number] Commanding Officer Motorized Squad: Amrit Luna PhD, Phone: [phone] us Raul Dougherty MD LAB BLOOD ORDERABLES Final Res ult Performing Organization Address City/[facility]/ZIP Co de Phone Number [facility] (AMBULATORY) [address] [place] [address], [facility] [address] [place] [address], from Last 3 Months or Most Recently Relevant to Health Maintenance Insurance [facility] [place] Care Teams Religious Activities Director Relationship Specialty Start Date End Date Raul Dougherty MD [address] [place] [address] PCP - General Internal Medicine 09/13/21
--- OUTSIDE RECORDS SUMMARY | 2025-09-03 23:22 | XMS_ITS | Data Portability ---
Author Organization [facility] & [facility] ADMIN Address [address] [place] [id number] Assessment No assessment recorded. Plan of Treatment Reminders Order Date Submit Date Provider Last Modified By Organization Details Last Modified Time Details Appointments None record ed. Lab None record ed. Referral None record ed. Procedures None record ed. Surgeries None record ed. Imaging None record ed. Medication Orders None record ed. Patient TargetsNo targets recorded. Patient InstructionsNo instructions recorded. Reason for Referral None Reported. Results Created Date Observation Date Name Description Value Unit Range Abnormal Flag Note LastModifiedBy Organization Detail LastModifiedTime 03/16/20 24 03/16/2024 audio gram No observ ation record ed. Not Available 2023 11:28:42 Result Notes None recorded. Problems Name Problem SNOMED Code Status Onset Date Resolution Date Notes Provider Name and Address Organization Details Recorded Time Abnormal auditory perception [id number] Active 024 KAY NORIEGA, AUD 1140 Formerly [facility], [place], [address] , [facility] & [place] 4 08:44:11 Problem Notes None recorded. Medical Equipment None Reported. Medications Name Sig Start Date Stop Date Status Note LastModified by Organization Details LastModified Time fluoxetine 40 mg capsule Take 1 capsule by mouth Daily. active Not Available Not Available No t Available buspirone 5 mg tablet Take 1 tablet by mouth 2 (Two) Times a Day. active Not Available Not Available No t Available prednisone 10 mg tablet take 6 tabs once daily on day 1, then 5 tabs on day 2, then 4 tabs on day 3, then 3 tabs on day 4, then 2 tabs on day 5, then take 1 tab on day 6 active Not Available Not Available No t Available meloxicam 15 mg tablet Take 1 tablet by mouth Daily. As needed for pain active Not Available Not Available No t Available promethazine 12.5 mg tablet TAKE 1 TABLET(12.5 mg) orally every 4-6 hours As Needed for nausea and vomiting active Not Available Not Available No t Available prednisone 20 mg tablet Take 1 tablet by mouth Daily for 5 days. active Not Available Not Available Not Available sumatriptan 50 mg tablet Take one tablet at onset of headache. May repeat dose one time in 2 hours if headache not relieved. active Not Available Not Available No t Available ciprofloxaci n 500 mg tablet take 1 tablet ORAL route every 12 hours for 7 days active Not Available Not Available N ot Available ondansetron 8 mg disintegrati ng tablet Place 1 tablet on the tongue and let dissolve Every 8 (Eight) Hours As Needed for Nausea or Vomiting. active Not Available Not Available No t Available buspirone 10 mg tablet Take 1 tablet by mouth 2 (Two) Times a Day. active Not Available Not Available No t Available montelukast 10 mg tablet Take 1 tablet by mouth Every Night. active Not Available Not Available No t Available brompheniram ine-pseudoep hedrine-DM 2 mg-30 mg-10 mg/5 mL oral syrup Take 10 mL( 2 teaspoonful s) by mouth 4 (Four) Times a Day As Needed for Allergies. active Not Available Not Available N ot Available ondansetron 4 mg disintegrati ng tablet place ONE TABLET ON THE TONGUE EVERY SIX HOURS NEEDED active Not Available Not Available No t Available cefdinir 300 mg capsule take 1 capsule ORAL route every 12 hours for 10 days active Not Available Not Available No t Available fluoxetine 20 mg capsule Take 1 capsule by mouth Daily. active Not Available Not Available No t Available fluticasone propionate 50 mcg/actuatio n nasal spray,suspen sixto PLACE 2 sprays into the nostril(s) as directed by provider Daily. active Not Available Not Available No t Available loratadine 10 mg tablet Take 1 tablet by mouth Daily. active Not Available Not Available No t Available Ventolin HFA 90 mcg/actuatio n aerosol inhaler Inhale 2 puffs Every 4 (Four) Hours As Needed for Shortness of Air or Wheezing. Use with AeroChamber active Not Available Not Available Not Available Promethegan 12.5 mg rectal suppository USE ONE SUPPOSITORY RECTALLY EVERY SIX HOURS NEEDED FOR NAUSEA active Not Available Not Available No t Available aripiprazole 5 mg tablet Take 1 tablet by mouth Every Night. active Not Available Not Available No t Available nitrofuranto in monohydrate/ macrocrystal s 100 mg capsule take 1 capsule by mouth twice a day for 7 days; must administer with a meal/food active Not Available Not Available No t Available Flovent HFA 110 mcg/actuatio n aerosol inhaler Inhale 2 puffs 2 (Two) Times a Day. Use with AeroChamber ; rinse mouth after use with water active Not Available Not Available No t Available OptiChamber [facility] spacer Use as instructed active Not Available Not Available N ot Available Vitals None Recorded Social History None recorded. Functional Status None recorded. Mental Status None recorded. Family History Nothing Reported. Medical History No medical history recorded. Gynecological HistoryNo gynecological history recorded. Obstetrics History GPAL:G 0 P 0 0 0 0 Past Encounters Encounter ID Performer Location Encounter Start Date Encounter Closed Date Diagnosis/Indication Diagnosis SNOMED-CT Code Diagnosis ICD10 Code Diagnosis IMO Codes Diagnosis Note [id number] [facility] [place] [id number] 03/16/2024 08:31:46 03/16/2024 08:40:16 Abnormal auditory perception 72312773 H93.299 Health Concerns Section Related Observation LastModified by Organization Detai ls LastModified Time None Recorded Concern Status LastModified by Organization Details LastModified Time None Recorded Advance Directives Directive None Recorded Payers Insurance Date Sequence Insurance Name Policy Number Policy Huizar Covered Member ID Huizar Member ID Guarantor Name 06/18/2024 1 [facility]: NATHANAEL BCBS OF [facility] MEDICAID (HMO) [id number] Autumn Muñoz [id number] Autumn Muñoz Notes Date Note Type Note Provider Name and Address Organization Details Recorded Time 03/16/2024 text/html Ms. Muñoz was seen today for an audiologic evaluation due to concerns about hearing loss per Dr. Tejas Najera MD. Ms. Muñoz reports that she is unsure if she is ignoring people, or can't hear them . She denies tinnitus, dizziness, drainage, aural fullness/pressure, and excessive noise exposure. Otoscopic inspection was unremarkable bilaterally. Audiometric testing revealed normal hearing thresholds with good word rec scores bilaterally. Type A Tympanogram bilaterally 1-Discussed findings with Ms. Muñoz. 2-F/u hearing testing as directed/necessary . KAY NORIEGA, AUD 1140 Formerly [facility], [place], [address], [facility] [place] & [place] 03/16/2024 08:44:29 OBGyn Episode No OBEpisode recorded.
--- OUTSIDE RECORDS SUMMARY | 2025-09-03 23:22 | XMS_ITS | Encounter Summary ---
[facility] Address [address] [place] [id number] Care Team Providers Care Compliance Aide Name Role Phone Raul Najera MD Primary Care Provider [phone] Encounter Details Date Type Department Care Team [...] on filedocumented in this encounter Care Teams Compliance Aide Relationship Specialty Start Date End Date Raul Najera MD [address] [place] [address] MARU MARTINEZ [id number] PCP - General Internal Medicine 09/13/21 documented as of this encounter
--- OUTSIDE RECORDS SUMMARY | 2025-09-03 23:22 | XMS_ITS | Encounter Summary ---
[facility] Address [address] [place] [address] Care Team Providers Care Enterprise Mobility Architect Name Role Phone Raul Najera MD Primary Care Provider [phone] Reason for Visit * Reason Comments Med Refill Encounter Details Date Type Department Care Team (Late st Contact Info) Description 07/11/2025 Refill [facility] [address] [place] [address] [place] [address] Raul Najera MD [address] [place] [address] [place] [address] Nausea Social History Tobacco Use Types [...] alone documented in this encounter Care Teams Enterprise Mobility Architect Relationship Specialty Start Date End Date Raul Najera MD [address] [place] [address] [place] [address] PCP - General Internal Medicine 09/13/21 documented as of this encounter
--- OUTSIDE RECORDS SUMMARY | 2025-09-03 23:22 | XMS_ITS | Encounter Summary ---
[facility] Address [address] [place] [address] Care Team Providers Care Government Employee Name Role Phone Raul Najera MD Primary Care Provider [phone] Encounter Details Date Type Department Care Team (Late st Contact Info) Description 07/20/2025 Results Follow-Up [facility] [address] [place] [address] [place] [address] Raul Najera MD [address] [place] [address] [place] [address] Social History Tobacco Use Types Packs/Day Years [...] on filedocumented in this encounter Care Teams Government Employee Relationship Specialty Start Date End Date Raul Najera MD [address] [place] [address] PCP - General Internal Medicine 09/13/21 documented as of this encounter
--- NOTE | 2025-09-03 23:26 | HMH.EDGENADL ---
Discharge Plan Disposition Patient Disposition: Home, Self-Care Prescriptions Prescriptions: New ondansetron HCl 4 mg tablet 4 mg PO Q8H PRN (Reason: nausea and vomiting) 5 Days Qty: 30 0RF No Action ferrous sulfate 325 mg (65 mg iron) tablet,delayed release (DR/EC) 325 mg PO DAILY Qty: 30 2RF Rx Instructions: Take with vitamin C (Independence Juice) to help with absorption. sertraline 100 mg tablet 100 mg PO DAILY Patient Comments: Take 1 tablet by mouth Daily. quetiapine 100 mg tablet 100 mg PO DAILY Patient Comments: take 1/2 tablet(0.5 tablet) at bedtime x 4 doses then 1 tablet at bedtime thereafter pantoprazole 20 mg tablet,delayed release (DR/EC) PO Patient Comments: Take 1 tablet by mouth Daily. etonogestrel-ethinyl estradiol [NuvaRing] 0.12-0.015 mg/24 hr ring 1 vag ring vaginal Q4W Qty: 3 4RF Rx Instructions: leave in place for 3 weeks of a 4-week cycle Classic 28 mg iron- 800 mcg tablet 1 tab PO DAILY sumatriptan succinate 50 mg tablet PO Patient Comments: Take one tablet at onset of headache. May repeat dose one time in 2 hours if headache not relieved. loratadine [Allergy Relief (loratadine)] 10 mg tablet 10 mg PO DAILY Patient Comments: Take 1 tablet by mouth Daily. albuterol sulfate [Ventolin HFA] 90 mcg/actuation HFA aerosol inhaler inhalation Patient Comments: Inhale 2 puffs Every 4 (Four) Hours As Needed for Shortness of Air or Wheezing. Use with AeroChamber progesterone micronized [Prometrium] 200 mg capsule 200 mg vaginal HS Qty: 30 3RF Rx Instructions: insert vaginally every night at bed time. ondansetron 4 mg tablet,disintegrating 4 mg PO Q6H PRN (Reason: nausea and vomiting) Qty: 10 0RF Referrals Follow up/Referrals: Raul Najera [Primary Care Provider, Medical] - See instructions Activity Restrictions/Add. Instructions Additional Instructions/Restrictions: Please follow-up with your primary care provider. Please return to the emergency department if you develop any new or worsening symptoms or become concerned for your health. Please take Zofran as needed for nausea and vomiting. Clinical Impressions Clinical Impression: Nausea and vomiting Qualifiers: Vomiting type: unspecified Qualified Code(s): R11.2 - Nausea with vomiting, unspecified Stand Alone Forms Stand Alone Forms: Work/School Release Instructions Patient Instructions: DI for Diarrhea and Traveler's Diarrhea in Adults, DI for Diarrhea and Traveler's Diarrhea in Children, DI for Nausea in Adults, DI for Nausea in Children Print Language Print Language: Czech Discharge ED Provider: Channing Griffin General Adult HPI General Chief complaint: Nausea/Vomiting/Diarrhea Stated complaint: nausea, vomiting, leg pain Time Seen by Provider: 09/03/25 23:26 History of Present Illness HPI narrative: 29-year-old female without significant past medical history presents for nausea and vomiting. She reports that she has been having leg cramps for the last day or so and started vomiting about an hour prior to arrival. She has been nauseous today as well. She reports that she had a recent miscarriage, her beta-hCG got as high as 34 but then dropped within a week. She reports that she had a menstrual period since that time. She reports no urinary symptoms, denies diarrhea. Reports no fever. She reports that she is having some periumbilical and left upper quadrant pain. Denies focal right upper quadrant right lower quadrant or pelvic pain. Related Data Home Medications ?Medication ?Instructions ?Recorded ?Confirmed vits no.126-ferrous fum 1 tab PO DAILY 02/12/24 02/21/25 28 mg iron-folic acid 800 mcg tablet (Classic ) sumatriptan succinate 50 mg tablet mg PO 10/31/24 02/21/25 albuterol sulfate 90 mcg/actuation inhalation 12/07/24 02/21/25 aerosol inhaler (Ventolin HFA) loratadine 10 mg tablet (Allergy 10 mg PO DAILY 12/07/24 02/21/25 Relief (loratadine)) pantoprazole 20 mg tablet,delayed mg PO 02/21/25 02/21/25 release quetiapine 100 mg tablet 100 mg PO DAILY 02/21/25 02/21/25 sertraline 100 mg tablet 100 mg PO DAILY 02/21/25 02/21/25 Previous Rx's ?Medication ?Instructions ?Recorded ferrous sulfate 325 mg (65 mg 325 mg PO DAILY #30 tabs 09/06/24 iron) tablet,delayed release ondansetron 4 mg disintegrating 4 mg PO Q6H PRN nausea and 11/09/24 tablet vomiting #10 tabs etonogestrel 0.12 mg-ethinyl 1 vag ring vaginal Q4W #3 ea 02/21/25 estradiol 0.015 mg/24 hr vaginal ring (NuvaRing) progesterone micronized 200 mg 200 mg vaginal HS #30 caps 08/09/25 capsule (Prometrium) ondansetron HCl 4 mg tablet 4 mg PO Q8H PRN nausea and 09/04/25 vomiting 5 days #30 tabs Allergies Allergy/AdvReac Type Severity Reaction Status Date / Time No Known Allergies Allergy Verified 02/21/25 10:11 [facility] Disclaimer: The information contained in this section may have been updated after the patient was seen, as this information can be updated by other users. Medical History (Updated 09/04/25 @ 00:59 by Channing Griffin MD) Contraception management Encounter for insertion of Kyleena IUD Encounter for induction of labor 39 weeks gestation of UTI (urinary tract infection) in in third trimester Constipation during GBS bacteriuria History of migraine headaches Depression affecting Anxiety in , antepartum Maternal asthma Nausea/vomiting in History of maternal chlamydia infection, currently Surgical History [place] teeth extracted Family History Other Anemia Asthma Cancer Coronary artery disease Diabetes Heart attack Hyperlipidemia Hypertension Kidney disease Thyroid disorder Social History Smoking Status: Never smoker alcohol intake: never substance use type: former substance user and marijuana current occupational status: employed Travel in the last 8 weeks?: None Have you lived/traveled outside US in past 30 days?: No Contact w/someone who lives/traveled outside US past 30 days?: No Exposure to someone with infectious disease in past 14 days?: No Do you have a fever (greater than 100.4 F or 38 C)?: No Have you tested positive for COVID-19?: No Exposed to someone with COVID-19 in past 14 days?: No Do you have a sore throat?: No Do you have a cough?: No Do you have any weakness?: No Do you have any diarrhea?: No Are you experiencing any unusual bleeding?: No Do you have any muscle aches/pain?: Yes Do you have any abdominal pain?: No Are you experiencing loss of taste or smell?: No Other Medical History Have you received the Flu Vaccine for this season: No Have you received the Pneumonia Vaccine: No ROS Obtained: Yes All systems reviewed & no additional complaints except as documented Physical Exam General General appearance: alert and in no apparent distress Head Head exam: atraumatic and normocephalic Eye Eye exam: Present normal appearance, PERRL and EOMI ENT ENT exam: Present normal oropharynx and normal external ear exam Neck Neck exam: Present normal inspection and full ROM Chest Chest inspection: Present normal inspection and symmetric chest wall rise; Absent tenderness Respiratory Respiratory exam: Present normal lung sounds bilaterally; Absent respiratory distress Cardiovascular Cardiovascular exam: Present regular rate and normal rhythm Abdominal Exam Abdominal exam: Present soft and tenderness (No focal right upper quadrant or right lower quadrant tenderness. Patient does have mild left upper quadrant tenderness.); Absent distention or guarding Extremities Exam Extremities exam: Present normal inspection; Absent edema or joint swelling Back Exam Back exam: Present normal inspection; Absent tenderness Neurological Exam Neurological exam: Present alert and oriented X3; Absent motor sensory deficit Psychiatric Psychiatric exam: Present normal affect and normal mood Skin Skin exam: Present warm, dry and normal color Lymphatic Lymphatic Findings: no adenopathy Medical Decision Making Medical Records Medical records reviewed: Yes I reviewed the patient's medical records. Screening: Per USPSTF and CDC recommendations, given the prevalence of disease in our region, it is our hospital?s policy to screen for HIV and viral Hepatitis for all patients aged 18 and over and those with ongoing risk factors. Emery Inquiry Pt receiving controlled substance: No Emery was queried for this patient: No Vital Signs: 09/03/25 23:38 09/04/25 00:34 Temperature 98.4 F Temperature Source Oral Pulse Rate 53 L Pulse Rate [Right] 73 Respiratory Rate 17 Blood Pressure 121/73 Blood Pressure [Right Arm] 116/64 Blood Pressure Mean 90 Blood Pressure Mean [Right Arm] 81 Blood Pressure Source [Right Arm] Automatic Cuff Blood Pressure Position [Right Arm] Supine 02 Sat by Pulse Oximetry 99 97 Oxygen Delivery Method Room Air Lab Data Lab results reviewed: Yes I reviewed the patient's lab results. Lab Results 09/03/25 23:28: Urine Color Yellow, Urine Appearance Clear, Urine pH 5.5, Ur Specific [place] >= 1.030, Urine Protein Negative, Urine Glucose (UA) Negative, Urine Ketones Negative, Urine Blood Negative, Urine Nitrate Negative, Urine Bilirubin Negative, Urine Urobilinogen 0.2, Ur Leukocyte Esterase Negative, Urine RBC None, Urine WBC Occasional, Ur Squamous Epith Cells Occasional, Urine Bacteria None 09/03/25 23:30: WBC 10.3, RBC 4.52, Hgb 12.8, Hct 40.4, MCV 89.4, MCH 28.3, MCHC 31.7 L, RDW 13.1, Plt Count 327, MPV 9.6, Neut % (Auto) 63.4, Lymph % (Auto) 28.6, Borden % (Auto) 6.0, Eos % (Auto) 1.3, Baso % (Auto) 0.3, Neut # (Auto) 6.5, Lymph # (Auto) 2.9, Borden # (Auto) 0.6, Eos # (Auto) 0.1, Baso # (Auto) 0.0, Sodium 140, Potassium 3.5, Chloride 106, Carbon Dioxide 27, Anion Gap 10.5, BUN 14, Creatinine 0.90, Estimated Creat Clear 141, Estimated GFR 75, Est GFR ( Amer) 91, Glucose 86, Calcium 8.9, Phosphorus 4.3, Magnesium 1.8, Total Bilirubin 0.4, AST 24, ALT 23, Alkaline Phosphatase 118, Total Protein 6.8, Albumin 4.1, Globulin 2.7, Albumin/Globulin Ratio 1.5, Lipase 118, Serum HCG, Qual Negative 09/03/25 23:30 09/03/25 23:30 Orders (Tests/Meds): ED MEDICATIONS Generic Name Dose Route Start Last Admin Trade Name Freq PRN Reason Stop Dose Admin Ondansetron HCl 4 mg 09/04/25 01:00 Ondansetron 4mg/2ml Vial IV 09/04/25 01:01 ONCE ONE Discontinued Medications Generic Name Dose Route Start Last Admin Trade Name Freq PRN Reason Stop Dose Admin Sodium Chloride 1,000 mls @ 999 mls/hr 09/03/25 23:45 09/04/25 00:26 Sod Chlor 0.9% 1000ml Bag IV 09/04/25 00:45 999 mls/hr .Q1H1M CHARISMA Administration Ketorolac Tromethamine 30 mg 10/05/25 23:34 09/04/25 00:26 Ketorolac 30mg/Ml Vial IV 09/03/25 23:35 30 mg ONCE ONE Administration Methocarbamol 1,000 mg 09/03/25 23:34 09/04/25 00:26 Methocarbamol 500mg Tablet PO 09/03/25 23:35 1,000 mg ONCE ONE Administration Prochlorperazine Edisylate 10 mg 09/03/25 23:34 09/04/25 00:26 Prochlorperazine 10mg/2ml Vial IV 09/03/25 23:35 10 mg ONCE ONE Administration ORDERS Category Date Time Status CBC w/Auto Diff [Complete Blood Count Auto Diff] Stat Lab 09/03/25 23:30 Completed CMP [Comprehensive Metabolic Panel] Stat Lab 09/03/25 23:30 Completed HCG Qualitative, Serum Stat Lab 09/03/25 23:30 Completed Lipase Stat Lab 09/03/25 23:30 Completed Magnesium Stat Lab 09/03/25 23:30 Completed Phosphorous Stat Lab 09/03/25 23:30 Completed UA [Urinalysis and Microscopic] Stat Lab 09/03/25 23:28 Completed Medical Decision Narrative: 29-year-old female with history of recent miscarriage presents for nausea vomiting for few hours, leg cramps since yesterday. History was obtained via interactive discussion with patient. On arrival, patient is [afebrile, hemodynamically stable, satting appropriately, alert, oriented x4, GCS 15], moving all extremities spontaneously. Full physical exam performed and significant for mild left upper quadrant tenderness, no right upper quadrant, right lower quadrant or pelvic tenderness. Differential includes but is not limited to gastroenteritis, pancreatitis, cholecystitis, retained products of conception, electrolyte derangement. Patient was given Toradol Compazine GI cocktail and IV fluids for symptomatic management and correction of underlying abnormalities. Workup initiated including CBC CMP lipase test, urinalysis On re-evaluation, patient reports some symptomatic improvement. Laboratory workup independently interpreted by me and significant for completely normal electrolytes, renal function. No leukocytosis. Urinalysis without evidence of infection. CT abdomen pelvis and transvaginal ultrasound was considered, but deemed unnecessary due to no right upper quadrant or right lower quadrant tenderness to suggest cholecystitis or appendicitis. Lipase negative. Patient has no lower abdominal tenderness to suggest obtained products of conception.. Given patient history, exam and workup, patient's presentation most likely represents gastroenteritis. These findings were communicated with patient and she was discharged in stable condition with prescription for Zofran. Return precautions given.. Procedures Risk/Benefits of Procedure(s) Were Explained: Yes Critical Care Critical Care Time Critical Care Time: No
[2025-09-03 23:38] VITALS: BP 116/64; PULSE 73; RESP 17; TEMP 36.9; O2SAT 99; BMI 36.0
[2025-09-03 23:40] LABS: Microscopic, Urine URINE MICROSCOPIC (MICROSCOPIC)
[2025-09-03 23:43] LABS: Hematocrit 40.4 % (37.0-47.0); Hemoglobin 12.8 g/dL (12.2-16.2); Immature Granulocytes % 0.4 %; Mean Corpuscular HGB Conc 31.7 g/dL (31.8-35.4); Mean Corpuscular Hemoglobin 28.3 pg (27.0-31.2); Mean Corpuscular Volume 89.4 fl (81-99); Nucleated Red Blood Cells % 0 %; Platelet Count 327 K/mm3 (142-424); Red Blood Count 4.52 M/mm3 (4.20-5.40); Red Cell Distribution Width-SD 43.0 fL; White Blood Count 10.3 K/mm3 (4.8-10.8)
[2025-09-03 23:44] LABS: Bilirubin,Urine Negative (Negative); Color,Urine YELLOW (Yellow); Glucose,Urine (UA) Negative (Negative); Ketones,Urine Negative (Negative); Leukocyte Esterase,Urine Negative (Negative); PH,Urine 5.5 (5.0-8.5); Protein,Urine Negative (Negative); Specific Gravity, Urine >= 1.030 (1.005-1.030); Urobilinogen,Urine 0.2 EU/dl (0.2)
[2025-09-03 23:55] LABS: Alanine Aminotransferase 23 U/L (12-78); Albumin Level 4.1 g/dl (3.5-5.0); Albumin/Globulin Ratio 1.5 (1.1-1.8); Alkaline Phosphatase 118 U/L (38-126); Anion Gap 10.5 mEq/L (5-15); Aspartate Amino Transferase 24 U/L (14-36); Bilirubin,Total 0.4 mg/dl (0.2-1.3); Blood Urea Nitrogen 14 mg/dl (7-17); Calcium 8.9 mg/dl (8.4-10.2); Carbon Dioxide 27 mmol/L (22.0-30.0); Chloride 106 mmol/L (98-107); Creatinine Clearance Estimated 141 mL/min (50-200); Creatinine,Serum 0.90 mg/dl (0.52-1.04); Estimated Glomerular Filt Rate 75 ml/min (>60); GFR (African American) 91 ML/MIN (>60); Globulin 2.7 g/dL (1.3-3.2); Glucose 86 mg/dl (74-100); Magnesium 1.8 mg/dl (1.6-2.3); Phosphorous 4.3 mg/dl (2.5-4.5); Potassium 3.5 mmoL/L (3.5-5.1); Sodium 140 mmol/L (136-145); Total Protein,Serum 6.8 g/dl (6.3-8.2)
[2025-09-04 00:05] LABS: Lipase 118 U/L (23-300)
[2025-09-04 00:07] LABS: HCG Qualitative, Serum Negative (Negative)
[2025-09-04 00:08] LABS: Squamous Epithelial Cell,Urine Occasional #/hpf (0-5); WBC,Urine Occasional #/hpf (0-3)
[2025-09-04] MEDS: PROCHLORPERAZINE 10MG/2ML VIAL 10 MG IV (00:26)
[2025-09-04] MEDS: KETOROLAC 30MG/ML VIAL 30 MG IV (00:26)
[2025-09-04] MEDS: 0.9 % SODIUM CHLORIDE 1000ML 1,000 ML 999 ML IV (00:26)
[2025-09-04] MEDS: METHOCARBAMOL 500MG TABLET 1000 MG PO (00:26)
[2025-09-04 00:34] VITALS: BP 121/73; PULSE 53; O2SAT 97
[2025-09-04 01:09] VITALS: BP 121/73; PULSE 53; RESP 22; TEMP 36.9; O2SAT 97
== END 2025-09-04 01:10 | disposition home or self-care (01) ==
PROVIDERS: Emergency Provider Emergency Medicine; PCP Internal Medicine
DX: R10.812 Left upper quadrant abdominal tenderness (principal); R11.2 Nausea with vomiting, unspecified
CPT/HCPCS: 80053; 81001; 83690; 83735; 84100; 84703; 85025; 96361; 96374; 96375; 99284; J0780; J1885; J7030